=== PATIENT | female | born 2000 | race Caucasian/White ===

== ENCOUNTER 2022-04-12 16:05 | Emergency (ER) | payer OTHER, SELFPAY ==
[2022-04-12 16:11] VITALS: BP 101/64; PULSE 88; RESP 20; TEMP 37; O2SAT 100
--- NOTE | 2022-04-12 16:15 | ED.EXTPRO ---
HPI - Extremity Problem General Chief complaint: Extremity Injury, Lower Stated complaint: Bottom of Left foot pain Time Seen by Provider: 04/12/22 16:15 Source: patient Mode of arrival: ambulatory Limitations: no limitations History of Present Illness HPI Narrative: Ms. Wharton is a 22-year-old female patient presenting to the clinic today with complaints of left plantar foot pain. She reports she got out of bed 2 days ago and developed pain to the bottom of her foot. She denies any known injury. She denies any pain to her heel. States is most painful when walking but she is able to walk on her tippy toes without much Related Data Home Medications Medication Instructions Recorded Confirmed aripiprazole 10 mg tablet 10 mg PO DAILY 04/12/22 04/12/22 buspirone 15 mg tablet 15 mg PO DAILY 04/12/22 04/12/22 insulin lispro 100 unit/mL 60 sliding scale dose continuous 04/12/22 04/12/22 subcutaneous solution (Humalog subcutaneous infusion DAILY U-100 Insulin) insulin pump cart,cont inf,BT 04/12/22 04/12/22 (Omnipod Dash Pods (Gen 4) subcutaneous cartridge) medroxyprogesterone 150 mg/mL 150 mg IM [id number] 04/12/22 04/12/22 intramuscular syringe omeprazole 20 mg capsule,delayed 20 mg PO DAILY 04/12/22 04/12/22 release Allergies Allergy/AdvReac Type Severity Reaction Status Date / Time amoxicillin Allergy Intermediate Hives / Verified 04/12/22 16:25 Red Face Review of Systems Review of Systems: Pertinent positives per HPI. Patient denies any fever, chills, rash, headache, visual changes, dizziness, cough, runny nose, sore throat, shortness of breath, chest pain, palpitations, nausea, vomiting, diarrhea, constipation, abdominal pain, or any urinary issues. PMFSH Comments At the time of my signature, I reviewed and agree with the nursing past medical, surgical, social, and family history. There is no relevant family history pertinent to the patient complaint. Exam Narrative: General: Well-developed, well nourished, in no apparent distress Head: Normocephalic, atraumatic. Cardio: Regular rate and rhythm, s1 and s2 normal, no murmur appreciated. Resp: Clear to auscultation bilaterally, no rhonchi, rales, wheezing or rubs. Musculoskeletal: No deformity,tender to palpation over the plantar fascia, grossly normal range of motion, mild discomfort with dorsal flexion of the left foot, muscle strength strong and equal, peripheral pulse strong, no edema, no cyanosis, normal gait and station Course Course Emergency Course: Portions of this record may have been created with voice recognition software. Level of Care: Express Care Visit Vital Signs Vital signs: Vital Signs Temperature 37.0 C 04/12/22 16:11 Pulse Rate 88 04/12/22 16:11 Respiratory Rate 20 04/12/22 16:11 Blood Pressure 101/64 04/12/22 16:11 Pulse Oximetry 100 04/12/22 16:11 Oxygen Delivery Room Air 04/12/22 16:11 Temperature 37.0 C 04/12/22 16:11 Pulse Rate 88 04/12/22 16:11 Respiratory Rate 20 04/12/22 16:11 Blood Pressure 101/64 04/12/22 16:11 Pulse Oximetry 100 04/12/22 16:11 Oxygen Delivery Room Air 04/12/22 16:11 Vital signs reviewed MDM - Extremity (Nontraumatic) MDM Narrative Medical decision making narrative: At the time of visit patient is resting comfortably on the exam table. I suspect that the patient has plantars fasciitis. Supportive measures were discussed with the patient she voiced understanding of discharge instructions and agrees to the treatment plan. Differential Diagnosis Differential diagnosis: Likely other (Foot sprain, planter fasciitis, rupture of the plantar fascia) Discharge Plan Discharge Clinical Impression: Plantar fasciitis of left foot Patient Disposition: Home, Self-Care Condition: Stable Instructions: Antibiotic Form, Plantar Fasciitis (ED), Plantar Fasciitis Exercises (ED) Additional Instructions: Rest, ice, and elevate Take ibuprofe
== END 2022-04-12 16:40 | disposition home or self-care (01) ==
PROVIDERS: Emergency Provider Nurse Practitioner Family; PCP Internal Medicine
DX: M72.2 Plantar fascial fibromatosis (principal); Z79.4 Long term (current) use of insulin
CPT/HCPCS: 99203; G0463

== ENCOUNTER 2022-07-13 15:04 | Emergency (ER) | payer OTHER, SELFPAY ==
[2022-07-13 15:08] VITALS: BP 109/71; PULSE 102; RESP 16; TEMP 36.9; O2SAT 99
--- NOTE | 2022-07-13 15:18 | ED.URI ---
HPI - URI/Sore Throat General Chief Complaint: Upper Respiratory Infection Stated Complaint: cough throat congestion weak Time Seen by Provider: 07/13/22 15:18 History of Present Illness HPI Narrative: Patient presents with nasal congestion cough sore throat fever and body aches. Patient states she was exposed to influenza a and her symptoms have been going on for 3 days. No shortness of breath no chest pain she is not taking anything [id number] for symptoms. Related Data Home Medications Medication Instructions Recorded Confirmed aripiprazole 10 mg tablet 10 mg PO DAILY 04/12/22 04/12/22 buspirone 15 mg tablet 15 mg PO DAILY 04/12/22 04/12/22 insulin lispro 100 unit/mL 60 sliding scale dose continuous 04/12/22 04/12/22 subcutaneous solution (Humalog subcutaneous infusion DAILY U-100 Insulin) insulin pump cart,cont inf,BT 04/12/22 04/12/22 (Omnipod Dash Pods (Gen 4) subcutaneous cartridge) medroxyprogesterone 150 mg/mL 150 mg IM [id number] 04/12/22 04/12/22 intramuscular syringe omeprazole 20 mg capsule,delayed 20 mg PO DAILY 04/12/22 04/12/22 release Allergies Allergy/AdvReac Type Severity Reaction Status Date / Time amoxicillin Allergy Intermediate Hives / Verified 07/13/22 15:19 Red Face Penicillins Allergy Unknown Verified 07/13/22 15:19 Review of Systems Review of Systems: CONSTITUTIONAL: Denies chills, or sweats. Reports fever and generalized body aches EYES: Denies visual changes, redness, or discharge. ENT: Denies otalgia. Reports nasal congestion runny nose and sore throat CARDIOVASCULAR: Denies chest pain, palpitations, or edema. RESPIRATORY: Denies dyspnea. Reports occasional cough GASTROINTESTINAL: Denies abdominal pain, nausea, vomiting, or diarrhea. GENITOURINARY: Denies dysuria or hematuria. SKIN: Denies rash or itching. MUSCULOSKELETAL: Denies back pain, joint pain, or myalgia. Reports generalized body aches NEUROLOGIC: Denies headache, numbness, or weakness. PSYCHIATRIC: Denies anxiety or depression. PMFSH Comments At time of signature, agree with nursing past medical, surgical, social and family history. There is no relevant family history pertinent to the presenting complaint Exam Narrative: The patient is a well-developed, well-nourished in no acute distress. SKIN: Skin is warm and dry without erythema, swelling or exudate. There is good turgor. No tenting. HEAD: Atraumatic. Normocephalic. No temporal or scalp tenderness. EYES: Moist and bright. Sclera and conjunctivae normal. No discharge. PERRLA. Extraocular motions intact. Gross visual acuity intact. EARS: Pinna is normal shape and contour. Clear external auditory canals. TM pearly vaca with good cone of light, no erythema or suppuration. Bilateral cerumen noted no gross hearing deficit. NOSE: pink, moist mucosa with good air movement. Clear rhinorrhea without nasal flaring. Septum midline. Mouth: moist mucous membranes. THROAT; mild erythema noted to posterior oropharynx with moderate postnasal drainage. Without exudate or ulceration.. Uvula midline. Normal movement of soft palate. NECK: Supple and nontender with full range of motion without discomfort. No meningeal signs. LUNGS: Equal and bilateral breath sounds without wheezes, rales or rhonchi. CHEST: The chest wall is without retractions or use of accessory muscles. HEART: Has a regular rate and rhythm without murmur, gallops, click or rub. ABDOMEN: Soft, nontender with positive active bowel sounds. No rebound tenderness. EXTREMITIES: Without cyanosis, clubbing or edema. Equal 2+ distal pulses and 2 second capillary refill noted. NEUROLOGIC: alert, active, . The patient moves all extremities with normal muscle strength. Normal muscle tone is noted. Normal coordination is noted. NO focal neurological findings noted. Course Course Level of Care: Express Care Visit Vital Signs Vital signs: Vital Signs Temperature 36.9 C 07/13/22 15:08 Pulse Rate 102 H
== END 2022-07-13 15:30 | disposition home or self-care (01) ==
PROVIDERS: Emergency Provider Nurse Practitioner Family; PCP Internal Medicine
DX: B34.9 Viral infection, unspecified (principal); J02.9 Acute pharyngitis, unspecified; R52 Pain, unspecified
CPT/HCPCS: 99211; G0463

== ENCOUNTER 2022-07-21 15:23 | Emergency (ER) | payer OTHER, SELFPAY ==
[2022-07-21 15:26] VITALS: BP 122/55; PULSE 130; RESP 16; TEMP 37.7; O2SAT 99
--- NOTE | 2022-07-21 16:17 | ED.URI ---
HPI - URI/Sore Throat General Chief Complaint: Upper Respiratory Infection Stated Complaint: Sore Throat/Ear Pain Time Seen by Provider: 07/21/22 16:05 Source: patient, RN notes reviewed and old records reviewed Mode of arrival: ambulatory Limitations: no limitations History of Present Illness HPI Narrative: 22 year old female who presents to [facility] care with complaints of having flu last week, continues to have ear pain, sore throat and cough, states not feeling much better. Patient reports that she has been taking Mucinex, Ibuprofen for her symptoms. MD elicited complaint: cough, sore throat and other (ear pain) Pertinent past history: other (recent diagnosis of flu,Type I diabetic) Onset (ago): week(s) (1) Able to tolerate fluids by mouth: Yes Treatments prior to arrival: ibuprofen and other (mucinex) Related Data Home Medications Medication Instructions Recorded Confirmed aripiprazole 10 mg tablet 10 mg PO DAILY 04/12/22 07/13/22 buspirone 15 mg tablet 15 mg PO DAILY 04/12/22 07/13/22 insulin lispro 100 unit/mL 60 sliding scale dose continuous 04/12/22 07/13/22 subcutaneous solution (Humalog subcutaneous infusion DAILY U-100 Insulin) insulin pump cart,cont inf,BT 04/12/22 04/12/22 (Omnipod Dash Pods (Gen 4) subcutaneous cartridge) medroxyprogesterone 150 mg/mL 150 mg IM [id number] 04/12/22 07/13/22 intramuscular syringe oxybutynin chloride 10 mg mg PO 07/21/22 tablet,extended release 24 hr Allergies Allergy/AdvReac Type Severity Reaction Status Date / Time amoxicillin Allergy Intermediate Hives / Verified 07/13/22 15:19 Red Face Penicillins Allergy Unknown Verified 07/13/22 15:19 Review of Systems Review of Systems: CONSTITUTIONAL:Reports malaise, chills, sweats, or fever. EYES: Denies visual changes, redness, or discharge. ENT: Reports rhinorrhea, congestion, sinus pain, otalgia and sore throat. CARDIOVASCULAR: Denies chest pain, palpitations, or edema. RESPIRATORY: Reports cough.? Denies dyspnea. GASTROINTESTINAL: Denies abdominal pain, nausea, vomiting, diarrhea SKIN: Denies rash or itching. MUSCULOSKELETAL Reports myalgia. NEUROLOGIC: Denies headache. All systems reviewed & are unremarkable except as noted in HPI and below PMFSH Past Medical History Medical History (Updated 07/30/22 @ 21:43 by Lor Woody NP) Anxiety and depression Diabetes type I Comments At time of signature, agree with nursing past medical, surgical, social and family history. There is no relevant family history pertinent to the presenting complaint Exam Narrative: GENERAL: Well-appearing, well-nourished, and in no acute distress. HEAD: Normocephalic EYES: PERRLA, conjunctivae clear ENT: Nares clear, turbinates edematous and erythematous, clear discharge. Mucous membranes moist. TM pearly jeffrey with dull light reflex bilaterally; no tragal tenderness. Oropharynx erythematous without lesions. Tonsils not enlarged and without exudate, no drooling, no hoarseness, no trismus, uvula midline. NECK: Supple. No lymphadenopathy CHEST: Clear to auscultation, breath sounds equal. No wheezing, rhonchi, rales, or stridor. No respiratory distress, speaks in full sentences.cough SAO2 99% on room air HEART: Regular rate and rhythm. No murmur heard. SKIN: Warm, dry, no rash. NEURO: Alert and oriented x3. PSYCH: Normal mood and affect Course Course Emergency Course: Patient is aware of diagnosis, understands and agrees to treatment plan.? Anticipatory guidance given.? Patient agrees to follow-up as directed and is aware of reasons to seek care at the emergency department. Portions of this record may have been created with voice recognition software Level of Care: Express Care Visit Vital Signs Vital signs: Vital Signs Temperature 37.7 C H 07/21/22 15:26 Pulse Rate 130 H 07/21/22 15:26 Respiratory Rate 16 07/21/22 15:26 Blood Pressure 122/55 L 07/21/22 15:26 Pulse Oxi
== END 2022-07-21 16:27 | disposition home or self-care (01) ==
PROVIDERS: Emergency Provider Registered Nurse; PCP Physician Assistant
DX: J11.1 Influenza due to unidentified influenza virus with other respiratory manifestations (principal); R05.9 Cough, unspecified
CPT/HCPCS: 99213; G0463

== ENCOUNTER 2024-12-11 19:35 | Emergency (ER) | payer OTHER, SELFPAY ==
--- OUTSIDE RECORDS SUMMARY | 2024-12-11 19:38 | XMS_ITS | Encounter Summary ---
Author Organization [facility] Address [address] [place] [address] Care Team Providers Care Maple Products Maker Name Role Phone Heather Mathias MD Primary Care Provider + [phone] Heather Mathias MD Primary Care Provider + [phone] Encounter Details Date Type Department Care Team (Late st Contact Info) Description 01/06/2019 Telephone [facility] Pediatrics - Diabetes [id number] [place] [address] Km Perkins, CERTIFIED REGISTERED LOCKSMITH-ASSISTANT DIRECTOR OF FINANCIAL AID [address] [place] [id number] Social History Tobacco Use Types Packs/Day Years Used Date Smoking Tobacco: Never Smokeless Tobacco: Never Comments:Passive smoke expos ure Alcohol Use Standard Drinks/Week Comments Not Asked 0 (1 standard drink = 0.6 oz pur e alcohol) Comments No Sex and Gender Information Value Date Recorded Sex Assigned at Not on file Legal Sex Female 11:39 AM LEGAL TRANSCRIBER Gender Identity Not on file Sexual Orientation Not on file documented as of this encounter Miscellaneous Notes * Telephone Encounter - Nicole Ralph, - 01/07/2019 10:11 AM CDT Mom called back through exchange as recommended. has not vomited anymore but still feels nauseated. Her glucose is 418 and ketones are still large. Using her ISF 19 and target of 150 (which mom reports is their current target) recommended to give another shot of 14 units. is not reading to eat yet. Recommended to check blood sugar and ketones again in 2 hours. If glucose trending down but still over 250 and ketones are large or moderate, give a correction through the pump. If she wants to eat at that time, give the correction dose first, let her eat, and dose for her carbs after eating. Check blood sugar and ketones again after another 2 hours. If she still has moderate or large ketones, call back through the exchange. * Telephone Encounter - Nicole Ralph DO - 01/07/2019 8:12 AM CDT Mom called through exchange due to ketones and high blood sugars. Mom reports that yesterday after she spoke to RN, she tried calling back again at 4 PM and left a message. She tried calling again at7 PM and left a message. She then found a sheet from pump class giving instructions on giving a shot, which she did. Sugar was in the 300's before bed, ketones still large. Last site change was in the afternoon. This morning, she woke up 2 hours ago vomiting and glucose was 490. Now she had large ketones and still vomiting. RECOMMENDATIONS: -change pump site again -recheck sugar: recommended to give 27 units by shot and recheck blood sugar and ketones in 2 hours. -call after recheck and will discuss plan -go to ER if her breathing becomes labored or if she is vomiting recurrently. * Telephone Encounter - Shalonda Schaefer RN - 01/06/2019 1:21 PM CDT Diabetes Sick Call Patient: Emma Guidry Date: 01/06/2019 Current Blood Glucose: 1:00 pm HI Current Ketone result: moderate Last insulin given: Humalog: Dose 38 with food and correction Time 1:00 pm Symptoms: thirsty, irritable, headache Recent Illness: none Plan: Push sugar free fluid. Recheck blood glucose and urine ketones in two hours. Change pump site now. documented in this encounter Plan of Treatment Not on file documented as of this encounter Visit Diagnoses Not on filedocumented in this encounter Additional Health Concerns Infection Onset Date Last Indicated Resolved Time COVID-19 Under Investigation 07/21/2020 07/21/2020 07/21/2020 12:45 AM LEGAL TRANSCRIBER documented as of this encounter Care Teams Maple Products Maker Relationship Specialty Start Date End Date Heather Mathias MD [address] [place] [address] PCP - General 11/27/10 03/18/21 Heather Mathias MD [address] [place] [address] PCP - General 03/20/21 documented as of this encounter
--- OUTSIDE RECORDS SUMMARY | 2024-12-11 19:38 | XMS_ITS | Encounter Summary ---
Author Organization [facility] [employer] Address [address] [place] [address] Care Team Providers Care Electrician Elevator Maintenance Name Role Phone Heather Mathias MD Primary Care Provider + [phone] Heather Mathias MD Primary Care Provider + [phone] Reason for Visit * Reason Onset Date Comments MEDICATION REFILL 03/22/2020 Encounter Details Date Type Department Care Team (Late st Contact Info) Description 03/22/2020 Refill [facility] Pediatrics - Endocrinology [address] [place] [id number] Chikis Briggs MD MEDICATION REFILL Social History Tobacco Use Types Packs/Day Years Used Date Smoking Tobacco: Never Smokeless Tobacco: Never Comments:Passive smoke expos ure Alcohol Use Standard Drinks/Week Comments Never 0 (1 standard drink = 0.6 oz pur e alcohol) AUDIT-C Answer Date Recorded Frequency of Alcohol Consumption Never 02/08/2020 Average Number of Drinks Not on file 020 Frequency of Binge Drinking Not on file 09/2019 Comments No Sex and Gender Information Value Date Recorded Sex Assigned at Not on file Legal Sex Female 11:39 AM WILD ANIMAL CARETAKER Gender Identity Not on file Sexual Orientation Not on file COVID-19 Exposure Response Date Recorded In the last month, have you been in contact with someone who was confirmed or suspected to have Coronavirus / COVID-19? No / Unsure 02/27/2020 9:20 AM CDT documented as of this encounter Plan of Treatment Not on file documented as of this encounter Visit Diagnoses Not on filedocumented in this encounter Additional Health Concerns Infection Onset Date Last Indicated Resolved Time COVID-19 Under Investigation 07/21/2020 07/21/2020 07/21/2020 12:45 AM WILD ANIMAL CARETAKER documented as of this encounter Care Teams Electrician Elevator Maintenance Relationship Specialty Start Date End Date Heather Mathias MD [address] [place] [address] PCP - General 11/27/10 03/18/21 Heather Mathias MD [address] [place] [address] PCP - General 03/20/21 documented as of this encounter
--- OUTSIDE RECORDS SUMMARY | 2024-12-11 19:38 | XMS_ITS | Encounter Summary ---
Author Organization [facility] Address [address] [place] [address] Care Team Providers Care Esl Tutor Name Role Phone Heather Mathias MD Primary Care Provider + [phone] Heather Mathias MD Primary Care Provider + [phone] Encounter Details Date Type Department Care Team (Late st Contact Info) Description 07/29/2020 Telephone [facility] Pediatrics - Endocrinology [address] [place] [address] Km Perkins, TIP STRETCHER-EDUCATIONAL RECRUITER [address] [place] [id number] Social History Tobacco Use Types Packs/Day Years Used Date Smoking Tobacco: Never Smokeless Tobacco: Never Comments:Passive smoke expos ure Alcohol Use Standard Drinks/Week Comments Yes 0 (1 standard drink = 0.6 oz pur e alcohol) about a week ago AUDIT-C Answer Date Recorded Q1: How often do you have a drink containing alc ohol? 2-4 times a month 07/23/2020 Average Number of Drinks Not on file 020 Frequency of Binge Drinking Not on file 07/09 Comments No Sex and Gender Information Value Date Recorded Sex Assigned at Not on file Legal Sex Female 11:39 AM TELEVISION PRODUCTION CLERK Gender Identity Not on file Sexual Orientation Not on file documented as of this encounter Functional Status * Is person deaf or have serious hearing difficulty? Answer Date of Assessment Author No 07/23/2020 5:27 PM TELEVISION PRODUCTION CLERK Alfredo Feliz RN * Is person blind or have serious difficulty seeing? Answer Date of Assessment Author No 07/23/2020 5:27 PM TELEVISION PRODUCTION CLERK Alfredo Feliz RN * Does person have serious difficulty walking/climbing stairs? Answer Date of Assessment Author No 07/23/2020 5:27 PM TELEVISION PRODUCTION CLERK Alfredo Feliz RN * Does person have difficulty dressing/bathing? Answer Date of Assessment Author No 07/23/2020 5:27 PM TELEVISION PRODUCTION CLERK Alfredo Feliz RN * Does person have difficulty doing errands alone? Answer Date of Assessment Author No 07/23/2020 5:27 PM TELEVISION PRODUCTION CLERK Alfredo Feliz RN documented as of this encounter Mental Status * Does person have difficulty concentrating/remembering/making decisions? Answer Entry Date Author No 07/23/2020 5:27 PM TELEVISION PRODUCTION CLERK Alfredo Feliz RN documented in this encounter Miscellaneous Notes * Telephone Encounter - Shalonda Schaefer RN - 07/29/2020 2:21 PM CST I reached out to and her mom to review blood sugars post DKA admission. [phone]. No answer, LMOM. VISION PRODUCTION CLERK documented in this encounter Plan of Treatment Not on file documented as of this encounter Visit Diagnoses Not on filedocumented in this encounter Care Teams Esl Tutor Relationship Specialty Start Date End Date Heather Mathias MD [address] [place] [address] PCP - General 11/27/10 03/18/21 Heather Mathias MD [address] [place] [address] PCP - General 03/20/21 documented as of this encounter
--- OUTSIDE RECORDS SUMMARY | 2024-12-11 19:38 | XMS_ITS | Data Portability ---
Author Organization [facility] Address [address] [place] [address] Care Team Providers Care Career Guidance Technician Name Role Phone ALEXANDER WHITFIELD Primary Care Provider Assessment No assessment recorded. Plan of Treatment Reminders Order Date Submit Date Provider Last Modified By Organization Details Last Modified Time Details Appointments ANY 15 2024 10:30A Ramesh Raymond MD Not available Not available Not available ANY 2024 01:45P EVARISTO MERCADO Not available Not available Not available Lab None record ed. Referral cardio logist referr al 2024 025 david Raymond MD, [address], [place], [address], 11/21/2024 15:03:06 dermat ologis t referr al 2024 025 vesta Rojas MD (Dermatology) , [address] [facility] [address], [place], [address], 12/05/2024 08:16:42 urolog ist referr al 2024 025 vesta Sr MD, [address] [facility] [address], [address], [address], 12/05/2024 08:16:41 neurol ogist referr al 2023 024 Bernard Carrillo MD, [address] [facility], [facility], [place], [address], 08/31/2024 17:48:03 Procedures None record ed. Surgeries None record ed. Imaging electr ocardi ogram 2024 025 [email or web address] In-Office Order, Internal Use Only DO Not Attach Compendium DO Not Attach Compendium, Do Not Delete/merge, [id number] 11/30/2024 14:48:52 US, echoca rdiogr am, transt horaci c, comple te, w/ color flow 2024 025 [email or web address] [facility] ([facility]) Scheduling, [address] [place], [address], 12/11/2024 13:58:42 Medication Orders hydroc ortiso ne 2.5 % topica l cream 2024 025 [id number], [address], [place], [place], [id number], 11/20/2024 14:56:47 omepra zole 20 mg capsul e,lalit yed releas e 2024 025 [id number], [address], [place], [place], [id number], 11/20/2024 14:44:08 medrox yproge steron e 150 mg/mL intram uscula r suspen leann 2024 025 [email or web address] Not available 11/01/2024 13:05:26 Difluc an 150 mg tablet 2024 025 [facility] #[id number], [address], [place], [place], [id number], 11/01/2024 12:23:18 Depo-P rovera 150 mg/mL intram uscula r suspen leann 2023 024 jan [facility] #[id number], [address], [place], [place], [id number], 08/08/2024 15:33:40 Patient TargetsNo targets recorded. Patient Instructions Encounter Date Encounter Id Patient Instructions Last Modified By Organization Details Last Modified Time 08/08/2024 [id number] epilepsy: care instructions [email or web address] Not available 08/08/2024 15:33:41 08/22/2024 [id number] f/u in 3 month nsuthan Not available 08/22/2024 14:35:19 11/01/2024 [id number] lightheadedness or faintness: care instructions [email or web address] Not available 11/01/2024 12:25:05 Quitting Tobacco : Care Instructions [email or web address] Not available 11/01/2024 12:25:05 learning about healthy weight [email or web address] Not available 11/01/2024 12:25:05 11/20/2024 [id number] A healthy lifestyle: care instructions Not available 11/20/2024 14:51:16 substance use disorder: care instructions [email or web address] Not available 11/20/2024 14:50:28 gastroesophageal reflux disease (GERD): care instructions Not available 11/20/2024 14:43:56 Quitting Tobacco : Care Instructions Not available 11/20/2024 14:50:28 Plan of care has been discussed with patient including expected therapeutic benefits and potential side effects of prescribed medication and treatments. Patient verbalizes understanding and is in agreement with the plan of care. Patient was instructed to keep all scheduled appointments and contact the clinic for any additional problems. Health Maintenance: - CRC screening (45-75):Due at 45 years. - Osteoporosis screening: Due at 65. - Lipid screening (>45 unless additional risk factors): 07/29/21 - HIV : negative 2021 - HepC: declined -Eye exam: 2024 -Dental Exam: appointment scheduled - Immunizations: - Influenza: Due. Declined - Prevnar 20: Due at 65. - Tdap/Td ([id number]): 01/17/22 - Zoster (>60):Due at 60. - COVID-19: Declined -Labs ordered this visit: Females: Pap smear: negative 2022 Mammogram: n/a DEXA: n/a Not available 11/20/2024 14:41:03 11/30/2024 [id number] A healthy lifestyle: care instructions [email or web address] Not available 11/30/2024 14:48:52 palpitations: ca re instructions [email or web address] Not available 11/30/2024 14:48:52 Quitting Tobacco : Care Instructions [email or web address] Not available 11/30/2024 14:48:52 Reason for Referral Neurologist Referral for Sei zure disorder Referring Physician: Isabel Cooney, Senior Cost Estimator, Encounter Date: 08/08/2024 Urologist Referral for Overa ctive urinary bladder Referring Physician: Melody Saucedo [facility] [place], Encounter Date: 11/20/2024 Submersible Pilot Referral for Pa lpitations Referring Physician: Melody Saucedo [facility] [place], Encounter Date: 11/20/2024 Poultry Scalder Referral for P ruritic rash Referring Physician: Melody Saucedo [facility] [place], Encounter Date: 11/20/2024 Results Created Date Observation Date Name Description Value Unit Range Abnormal Flag Note LastModifiedBy Organization Detail LastModifiedTime 08/13/1908/13/2024 Gluco se [Mass /volu me] in Blood glucose [mass/volume ] in blood 223 mg/dL low: 70mg/d Lhigh: 99mg/d L high GLUCO SE,BE DSIDE POCT 223 (H) 70 - 99 mg/dL 08/13 5:43 AM SCHOOL ADMINISTRATOR [facility] Not Available Not Available 10/31/2024 14:35:00 08/13/1908/13/2024 Gluco se [Mass /volu me] in Blood interpretati on and review of laboratory results Abnorm al Not Available Not Available 14:35:00 08/13/1908/13/2024 CBC W Auto Diffe renti al panel - Blood leukocytes [#/volume] in blood by automated count 10.08 text: 4.00 - 12.00 10(3)/ mcL WBC 10.08 4.00 - 12.00 10(3) /mcL 08/13 4:18 AM [facility] Not Available Not Available 10/31/2024 14:35:00 08/13/1908/13/2024 CBC W Auto Diffe renti al panel - Blood erythrocytes [#/volume] in blood by automated count 5.51 text: 3.80 - 5.30 10(6)/ mcL high RBC 5.51 (H) 3.80 - 5.30 10(6) /mcL 08/13 4:18 AM [facility] Not Available Not Available 10/31/2024 14:35:00 08/13/1908/13/2024 CBC W Auto Diffe renti al panel - Blood hemoglobin [mass/volume ] in blood 15.6 g/dL low: 12g/dL high: 15.8g/ dL HEMOG LOBIN (HGB) 15.6 12.0 - 15.8 g/dL 08/13 4:18 AM [facility] Not Available Not Available 10/31/2024 14:35:00 08/13/1908/13/2024 CBC W Auto Diffe renti al panel - Blood hematocrit [volume fraction] of blood by automated count 44.9 % low: 36%hig h: 47% HEMAT OCRIT (HCT) 44.9 36.0 - 47.0 % 08/13 4:18 AM [facility] Not Available Not Available 10/31/2024 14:35:00 08/13/1908/13/2024 CBC W Auto Diffe renti al panel - Blood MCV [entitic volume] by automated count 81.5 fL low: 82fLhi gh: 96fL low MCV 81.5 (L) 82.0 - 96.0 fL 08/13 4:18 AM [facility] Not Available Not Available 10/31/2024 14:35:00 08/13/1908/13/2024 CBC W Auto Diffe renti al panel - Blood MCH [entitic mass] by automated count 28.3 pg low: 26pghi gh: 34pg MCH 28.3 26.0 - 34.0 pg 08/13 4:18 AM [facility] Not Available Not Available 10/31/2024 14:35:00 08/13/19 25 08/13/2024 CBC W Auto Diffe renti al panel - Blood MCHC [mass/volume ] by automated count 34.7 g/dL low: 31g/dL high: 36g/dL MCHC 34.7 31.0 - 36.0 g/dL 08/13 4:18 AM [facility] Not Available Not Available 10/31/2024 14:35:00 08/13/19 25 08/13/2024 CBC W Auto Diffe renti al panel - Blood platelets [#/volume] in blood 288 text: 140 - 440 10(3)/ mcL PLATE LET COUNT 288 140 - 440 10(3) /mcL 08/13 4:18 AM [facility] Not Available Not Available 10/31/2024 14:35:00 08/13/1908/13/2024 CBC W Auto Diffe renti al panel - Blood erythrocyte distribution width [ratio] by automated count 12.4 % low: 11.8%h igh: 15.5% RDW 12.4 11.8 - 15.5 % 08/13 4:18 AM [facility] [place] Not Available Not Available 10/31/2024 14:35:00 08/13/19 25 08/13/2024 CBC W Auto Diffe renti al panel - Blood platelet mean volume [entitic volume] in blood by automated count 10.5 fL low: 9.7fLh igh: 12.4fL MPV 10.5 9.7 - 12.4 fL 08/13 4:18 AM [facility] Not Available Not Available 10/31/2024 14:35:00 0108/13/2024 CBC W Auto Diffe renti al panel - Blood neutrophils/ 100 leukocytes in blood by automated count 56.5 % low: 47%hig h: 73% NEUTR OPHIL S 56.5 47.0 - 73.0 % 08/13 4:18 AM S[facility]OL ADMINISTRATOR [facility] Not Available Not Available 10/31/2024 14:35:00 08/13/1908/13/2024 CBC W Auto Diffe renti al panel - Blood lymphocytes/ 100 leukocytes in blood by automated count 35.3 % low: 18%hig h: 42% LYMPH OCYTE S 35.3 18.0 - 42.0 % 08/13 4:18 AM S[facility]OL ADMINISTRATOR [facility] Not Available Not Available 10/31/2024 14:35:00 08/13/1908/13/2024 CBC W Auto Diffe renti al panel - Blood monocytes/10 0 leukocytes in blood by automated count 6.7 % low: 4%high : 12% MONOC YTES 6.7 4.0 - 12.0 % 08/13 4:18 AM [facility]OL ADMINISTRATOR [facility] Not Available Not Available 10/31/2024 14:35:00 08/13/1908/13/2024 CBC W Auto Diffe renti al panel - Blood eosinophils/ 100 leukocytes in blood by automated count 1 % low: 0%high : 5% EOSIN OPHIL S 1.0 0.0 - 5.0 % 08/13 4:18 AM [facility]OL ADMINISTRATOR [facility] Not Available Not Available 10/31/2024 14:35:00 08/13/1908/13/2024 CBC W Auto Diffe renti al panel - Blood basophils/10 0 leukocytes in blood by automated count 0.5 % low: 0%high : 1% BASOP HILS 0.5 0.0 - 1.0 % 08/13 4:18 AM [facility]OL ADMINISTRATOR [facility] Not Available Not Available 10/31/2024 14:35:00 08/13/1908/13/2024 CBC W Auto Diffe renti al panel - Blood neutrophils [#/volume] in blood by automated count 5.69 text: 1.60 - 7.70 10(3)/ mcL ABSOL [place] NEUTR OPHIL S 5.69 1.60 - 7.70 10(3) /mcL 08/13 4:18 AM S[facility]OL ADMINISTRATOR [facility] Not Available Not Available 10/31/2024 14:35:00 08/13/19 25 08/13/2024 CBC W Auto Diffe renti al panel - Blood lymphocytes [#/volume] in blood by automated count 3.56 text: 1.30 - 3.20 10(3)/ mcL high ABSOL [place] LYMPH OCYTE S 3.56 (H) 1.30 - 3.20 10(3) /mcL 08/13 4:18 AM SCHOOL ADMINISTRATOR [facility] Not Available Not Available 10/31/2024 14:35:00 08/13/1908/13/2024 CBC W Auto Diffe renti al panel - Blood monocytes [#/volume] in blood by automated count 0.68 text: 0.20 - 1.00 10(3)/ mcL ABSOL [place] MONOC YTES 0.68 0.20 - 1.00 10(3) /mcL 08/13 4:18 AM SCHOOL ADMINISTRATOR [facility] Not Available Not Available 10/31/2024 14:35:00 08/13/1908/13/2024 CBC W Auto Diffe renti al panel - Blood eosinophils [#/volume] in blood by automated count 0.1 text: 0.00 - 0.40 10(3)/ mcL ABSOL [place] EOSIN OPHIL 0.10 0.00 - 0.40 10(3) /mcL 08/13 4:18 AM S[facility]OL ADMINISTRATOR [facility] Not Available Not Available 10/31/2024 14:35:00 08/13/19 25 08/13/2024 CBC W Auto Diffe renti al panel - Blood basophils [#/volume] in blood by automated count 0.05 text: 0.00 - 0.10 10(3)/ mcL ABSOL [place] BASOP HILS 0.05 0.00 - 0.10 10(3) /mcL 08/13 4:18 AM S[facility]OL ADMINISTRATOR [facility] Not Available Not Available 10/31/2024 14:35:00 08/13/1908/13/2024 CBC W Auto Diffe renti al panel - Blood nucleated erythrocytes /100 leukocytes [ratio] in blood 0 NRBC PER 100 WBC 0 08/13 4:18 AM [facility]MINIST[facility] Not Available Not Available 10/31/2024 14:35:00 08/13/1908/13/2024 CBC W Auto Diffe renti al panel - Blood interpretati on and review of laboratory results Abnorm al Not Available Not Available 14:35:00 08/13/1908/13/2024 Gas panel - Venou s blood oxygen gas flow oxygen delivery system 98% O2 STATU S 98% 08/13 4:45 AM [facility]OL ADMINISTRATOR [facility] Not Available Not Available 10/31/2024 14:35:00 08/13/1908/13/2024 Gas panel - Venou s blood pH of venous blood 7.4 low: 7.34hi gh: 7.43 PH VENOU S 7.40 7.34 - 7.43 08/13 4:45 AM SCHOOL ADMINISTRATOR [facility] Not Available Not Available 10/31/2024 14:35:00 08/13/1908/13/2024 Gas panel - Venou s blood carbon dioxide [partial pressure] in venous blood 33 text: 41 - 51 mmHg low PCO2 (VENO US) 33 (L) 41 - 51 mmHg 08/13 4:45 AM S[facility]OL ADMINISTRATOR [facility] Not Available Not Available 10/31/2024 14:35:00 08/13/1908/13/2024 Gas panel - Venou s blood oxygen [partial pressure] in venous blood 57 text: 30 - 50 mmHg high PO2 VENOU S 57 (H) 30 - 50 mmHg 08/13 4:45 AM SCHOOL ADMINISTRATOR [facility] Not Available Not Available 10/31/2024 14:35:00 08/13/1908/13/2024 Gas panel - Venou s blood oxygen saturation in venous blood 87 % low: 60%hig h: 85% high O2 SAT JACK, MEASU RED 87 (H) 60 - 85 % 08/13 4:45 AM SCHOOL ADMINISTRATOR [facility] Not Available Not Available 10/31/2024 14:35:00 08/13/1908/13/2024 Gas panel - Venou s blood bicarbonate [moles/volum e] in blood 20.9 mmol/ L low: 22mmol /Lhigh : 26mmol /L low BICAR BONAT E 20.9 (L) 22.0 - 26.0 mmol/ L 08/13 4:45 AM SCHOOL ADMINISTRATOR [facility] Not Available Not Available 10/31/2024 14:35:00 08/13/1908/13/2024 Gas panel - Venou s blood base venous -2.5 mmol/ L low: -2mmol /Lhigh : 3mmol/ L low BASE VENOU S -2.5 (L) -2.0 - 3.0 mmol/ L 08/13 4:45 AM SCHOOL ADMINISTRATOR [facility] Not Available Not Available 10/31/2024 14:35:00 08/13/1908/13/2024 Gas panel - Venou s blood carboxyhemog lobin/hemogl obin.total in blood 1.8 % low: 0%high : 5% CARBO XYHEM OGLOB IN 1.8 0.0 - 5.0 % 08/13 4:45 AM SCHOOL ADMINISTRATOR [facility] Not Available Not Available 10/31/2024 14:35:00 08/13/1908/13/2024 Gas panel - Venou s blood methemoglobi n/hemoglobin .total in blood 0.5 % low: 0%high : 1.5% METHE MOGLO BIN 0.5 0.0 - 1.5 % 08/13 4:45 AM SCHOOL ADMINISTRATOR [facility] Not Available Not Available 10/31/2024 14:35:00 08/13/19 25 08/13/2024 Gas panel - Venou s blood Unknown Analyte Interp retati on - The usual approa ch to interp reting a VBG consis ts of using the venous measur ements to estima te the corres yanidin g arteri al values , then using these estima jonah values for clinic al decisi on-david ing exactl y as if an ABG had been perfor med. The differ ence betwee n the venous measur ements and the arteri al measur ements depend s upon the site of venous sampli ng and varies among labora tories . Correl ation with arteri al blood gases - Althou gh arteri al blood gas analys is is more accura te than venous analys is for the assess ment of oxygen ation, measur ement of PCO2, pH, and HCO3 are simila r with some minor adjust ments: The centra l venous pH is usuall y 0.03 to 0.05 pH units lower than the arteri al pH and the PCO2 is usuall y 4 to 5 mmHg higher , with little or no increa se in HCO3. Mixed venous blood (ie, SvO2 drawn from a pulmon dl artery cathet er) gives result s simila r to centra l venous blood (ie, ScvO2 drawn from a centra l venous cathet er). The periph eral venous pH is approx imatel y 0.02 to 0.04 pH units lower than the arteri al pH, the venous serum HCO3 concen tratio n is approx imatel y 1 to 2 meq/L higher , and the venous PCO2 is approx imatel y 3 to 8 mmHg higher . There are no venous to arteri al conver sions for ScvO2, SvO2, or periph eral venous oxyhem oglobi n satura tion (PvO2) . Import antly, suffic ient variab ility betwee n arteri al and venous blood gas values may exist such that period ic correl ation betwee n arteri al and venous blood gas values is always khanh t. Inter preta tion - The usual appro ach to inter preti ng a VBG consi sts of using the venou s measu remen ts to estim ate the corre spond ing arter ial value s, then using these estim ated value s for clini mone decis ion-m aking exact ly as if an ABG had been perfo rmed. The diffe rence betwe en the venou s measu remen ts and the arter ial measu remen ts depen ds upon the site of venou s sampl ing and varie s among labor atori es. Corre latio n with arter ial blood gases - Altho ugh arter ial blood gas destinee sis is more accur ate than venou s destinee sis for the asses sment of oxyge natio n, measu remen t of PCO2, pH, and HCO3 are simil ar with some minor adjus tment s: The centr al venou s pH is usual ly 0.03 to 0.05 pH units lower than the arter ial pH and the PCO2 is usual ly 4 to 5 mmHg highe r, with littl e or no incre ase in HCO3. Mixed venou s blood (ie, SvO2 drawn from a pulmo nary arter y sarita ter) gives resul ts simil ar to centr al venou s blood (ie, ScvO2 drawn from a centr al venou s sarita ter). The perip heral venou s pH is appro ximat sandra 0.02 to 0.04 pH units lower than the arter ial pH, the venou s serum HCO3 mimi ntrat ion is appro ximat sandra 1 to 2 meq/L highe r, and the venou s PCO2 is appro ximat sandra 3 to 8 mmHg highe r. There are no venou s to arter ial conve rsion s for ScvO2 , SvO2, or perip heral venou s oxyhe moglo bin satur ation (PvO2 ). Impor tantl y, suffi cient varia bilit y betwe en arter ial and venou s blood gas value s may exist such that perio dic corre latio n betwe en arter ial and venou s blood gas value s is alway s prude nt. Not Available Not Available 10/31/2024 14:35:00 08/13/19 25 08/13/2024 Gas panel - Venou s blood interpretati on and review of laboratory results Abnorm al Not Available Not Available 14:35:00 08/13/19 25 08/13/2024 Compr ehens kaylynn metab olic 1999 panel - Serum or Plasm a sodium [moles/volum e] in serum or plasma 139 mmol/ L low: 136mmo l/Lhig h: 145mmo l/L SODIU M 139 136 - 145 mmol/ L 08/13 4:37 AM SCHOOL ADMINISTRATOR [facility] Not Available Not Available 10/31/2024 14:34:59 08/13/19 25 08/13/2024 Compr ehens kaylynn metab olic 1999 panel - Serum or Plasm a potassium [moles/volum e] in serum or plasma 3.5 mmol/ L low: 3.5mmo l/Lhig h: 5.1mmo l/L POTAS SIUM 3.5 3.5 - 5.1 mmol/ L 08/13 4:37 AM SCHOOL ADMINISTRATOR [facility] Not Available Not Available 10/31/2024 14:34:59 08/13/19 25 08/13/2024 Compr ehens kaylynn metab olic 1999 panel - Serum or Plasm a chloride [moles/volum e] in serum or plasma 108 mmol/ L low: 98mmol /Lhigh : 107mmo l/L high CHLOR RIGOBERTO 108 (H) 98 - 107 mmol/ L 08/13 4:37 AM [facility] Not Available Not Available 10/31/2024 14:34:59 08/13/19 25 08/13/2024 Compr ehens kaylynn metab olic 1999 panel - Serum or Plasm a carbon dioxide, total [moles/volum e] in serum or plasma 19 mmol/ L low: 22mmol /Lhigh : 30mmol /L low CO2, VENOU S 19 (L) 22 - 30 mmol/ L 08/13 4:37 AM S[facility]OL ADMINISTRATOR [facility] Not Available Not Available 10/31/2024 14:34:59 08/13/19 25 08/13/2024 Compr ehens kaylynn metab olic 2000 panel - Serum or Plasm a anion gap in serum or plasma 15.5 mmol/ L high: 18mmol /L ANION GAP 15.5 <18.0 mmol/ L 08/13 4:37 AM SCHOOL ADMINISTRATOR [facility] Not Available Not Available 10/31/2024 14:34:59 08/13/19 25 08/13/2024 Compr ehens kaylynn metab olic 1999 panel - Serum or Plasm a glucose [mass/volume ] in serum or plasma 107 mg/dL low: 70mg/d Lhigh: 99mg/d L high GLUCO SE 107 (H) 70 - 99 mg/dL 08/13 4:37 AM S[facility]OL ADMINISTRATOR [facility] Not Available Not Available 10/31/2024 14:34:59 08/13/19 25 08/13/2024 Compr ehens kaylynn metab olic 2000 panel - Serum or Plasm a urea nitrogen [mass/volume ] in serum or plasma 16 mg/dL low: 5mg/dL high: 18mg/d L BUN 16 5 - 18 mg/dL 08/13 4:37 AM S[facility]OL ADMINISTRATOR [facility] Not Available Not Available 10/31/2024 14:34:59 08/13/19 25 08/13/2024 Compr mSellerens kaylynn metab olic 1999 panel - Serum or Plasm a creatinine [mass/volume ] in serum or plasma 0.7 mg/dL low: 0.6mg/ dLhigh : 1mg/dL CREAT ININE , BLOOD 0.70 0.60 - 1.00 mg/dL 08/13 4:37 AM [facility] [place] Not Available Not Available 10/31/2024 14:34:59 08/13/19 25 08/13/2024 Compr ehens kaylynn metab olic 2000 panel - Serum or Plasm a urea nitrogen/cre atinine [mass ratio] in serum or plasma 23 text: 12 - 20 ratio high BUN/C REATI NINE RATIO 23 (H) 12 - 20 ratio 08/13 4:37 AM SCHOOL ADMINISTRATOR [facility] Not Available Not Available 10/31/2024 14:34:59 08/13/1908/13/2024 Compr mSellerens kaylynn metab olic 1999 panel - Serum or Plasm a protein [mass/volume ] in serum or plasma 8.1 g/dL low: 6.3g/d Lhigh: 8.2g/d L TOTAL PROTE IN 8.1 6.3 - 8.2 g/dL 08/13 4:37 AM SCHOOL ADMINISTRATOR [facility] [place] [facility] LAB Not Available Not Available 10/31/2024 14:34:59 08/13/19 25 08/13/2024 Compr mSellerens kaylynn metab olic 1999 panel - Serum or Plasm a albumin [mass/volume ] in serum or plasma 4.6 g/dL low: 3.5g/d Lhigh: 5g/dL ALBUM IN 4.6 3.5 - 5.0 g/dL 08/13 4:37 AM S[facility]OL ADMINISTRATOR [facility] [place] [facility] LAB Not Available Not Available 10/31/2024 14:34:59 08/13/1908/13/2024 Compr mSellerens kaylynn metab olic 2000 panel - Serum or Plasm a albumin/glob ulin [mass ratio] in serum or plasma 1.3 low: 1high: 2.2 A/G RATIO 1.3 1.0 - 2.2 08/13 4:37 AM [facility] Not Available Not Available 10/31/2024 14:34:59 08/13/19 25 08/13/2024 Compr mSellerens kaylynn metab olic 1999 panel - Serum or Plasm a calcium [mass/volume ] in serum or plasma 9.7 mg/dL low: 8.7mg/ dLhigh : 10.5mg /dL CALCI UM 9.7 8.7 - 10.5 mg/dL 08/13 4:37 AM [facility] [place] [facility] LAB Not Available Not Available 10/31/2024 14:34:59 08/13/19 25 08/13/2024 Compr ehens kaylynn metab olic 2000 panel - Serum or Plasm a bilirubin.to glenna [mass/volume ] in serum or plasma 0.7 mg/dL low: 0.2mg/ dLhigh : 1.2mg/ dL T BILI 0.7 0.2 - 1.2 mg/dL 08/13 4:37 AM [employer] [facility] [place] [employer] Peer5E R LAB Not Available Not Available 10/31/2024 14:34:59 08/13/1908/13/2024 Compr mSellerens kaylynn metab olic 1999 panel - Serum or Plasm a aspartate aminotransfe rase [enzymatic activity/vol ume] in serum or plasma 12 U/L low: 5U/Lhi gh: 34U/L SGOT (AST) 12 5 - 34 U/L 08/13 4:37 AM [employer] [facility] [place] H ZokosE R LAB Not Available Not Available 10/31/2024 14:34:59 08/13/1908/13/2024 Compr mSellerens kaylynn metab olic 2000 panel - Serum or Plasm a alanine aminotransfe rase [enzymatic activity/vol ume] in serum or plasma 16 U/L low: 0U/Lhi gh: 55U/L SGPT (ALT) 16 0 - 55 U/L 08/13 4:37 AM [facility] [place] [facility] [place] [facility] LAB Not Available Not Available 10/31/2024 14:34:59 08/13/1908/13/2024 Compr mSellerens kaylynn metab olic 2000 panel - Serum or Plasm a alkaline phosphatase [enzymatic activity/vol ume] in serum or plasma 84 U/L low: 40U/Lh igh: 150U/L ALKAL INE PHOSP HATAS E 84 40 - 150 U/L 08/13 4:37 AM [facility] [place] [facility] [place] [facility] LAB Not Available Not Available 10/31/2024 14:34:59 08/13/1908/13/2024 Compr ehens kaylynn JDF olic 1999 panel - Serum or Plasm a glomerular filtration rate/1.73 sq M.predicted among non-blacks [volume rate/area] in serum, plasma or blood by creatinine-b ased formula (MDRD) low: 60 GFR, ESTIM ATED >60 >=60 08/13 4:37 AM [facility] [place] [place] [facility] [facility] Not Available Not Available 10/31/2024 14:34:59 08/13/19 25 08/13/2024 Compr ehens kaylynn metab olic 2000 panel - Serum or Plasm a glomerular filtration rate/1.73 sq M.predicted among blacks [volume rate/area] in serum, plasma or blood by creatinine-b ased formula (MDRD) low: 60 GFR, EST. AFRIC AN >60 >=60 08/13 4:37 AM [employer] [facility] Not Available Not Available 10/31/2024 14:34:59 08/13/19 25 08/13/2024 Compr ehens kaylynn metab olic 2000 panel - Serum or Plasm a glomerular filtration rate/1.73 sq M.predicted among non-blacks [volume rate/area] in serum, plasma or blood by creatinine-b ased formula (MDRD) low: 60 GFR, EST. NONAF RICAN >60 >=60 08/13 4:37 AM [facility] [facility] Not Available Not Available 10/31/2024 14:34:59 08/13/19 25 08/13/2024 Compr ehens kaylynn metab olic 2000 panel - Serum or Plasm a interpretati on and review of laboratory results Abnorm al Not Available Not Available 14:34:59 10/16/1910/15/2024 Lacta te [Mole s/vol ume] in Serum or Plasm a lactate [moles/volum e] in serum or plasma 1.1 mmol/ L low: 0.7mmo l/Lhig h: 2mmol/ L LACTI C ACID 1.1 0.7 - 2.0 mmol/ L 10/15 8:10 PM CDT [facility] [place] [facility] Not Available Not Available 10/31/2024 14:35:03 10/16/1910/15/2024 Lacta te [Mole s/vol ume] in Serum or Plasm a interpretati on and review of laboratory results Normal Not Available Not Available 10/08 14:35:03 10/16/19 25 10/15/2024 Methi cilli n resis tant Staph yloco ccus aureu s (MRSA ) DNA [Pres ence] in Speci men by SRINIVASA with probe detec tion methicillin resistant staphylococc us aureus (MRSA) DNA [presence] in specimen by SRINIVASA with probe detection Negati ve text: negati ve, invali d MRSA PCR RESUL T Negat kaylynn Negat kaylynn, Inval id 10/15 5:52 PM CDT [facility] [place] [facility] LAB Not Available Not Available 10/31/2024 14:35:03 10/16/19 25 10/15/2024 Methi cilli n resis tant Staph yloco ccus aureu s (MRSA ) DNA [Pres ence] in Speci men by SRINIVASA with probe detec tion interpretati on and review of laboratory results Normal Not Available Not Available 10/08 14:35:03 10/16/19 25 10/15/2024 Aceto ne [Pres ence] in Blood acetone [presence] in blood Negati ve text: negati ve ACETO NE Negat kaylynn Negat kaylynn 10/15 2:26 PM CDT [facility] [place] [facility] LAB Not Available Not Available 10/31/2024 14:35:03 10/16/19 25 10/15/2024 Aceto ne [Pres ence] in Blood interpretati on and review of laboratory results Normal Not Available Not Available 10/08 14:35:03 10/16/19 25 10/15/2024 Thyro xine (T4) free [Mass /volu me] in Serum or Plasm a thyroxine (T4) free [mass/volume ] in serum or plasma 1.2 NG/dL low: 0.7NG/ dLhigh : 1.9NG/ dL T4 FREE 1.2 0.7 - 1.9 ng/dL 10/15 5:59 PM CDT [facility] [place] [facility] LAB Not Available Not Available 10/31/2024 14:35:03 10/16/19 25 10/15/2024 Thyro xine (T4) free [Mass /volu me] in Serum or Plasm a interpretati on and review of laboratory results Normal Not Available Not Available 10/08 14:35:03 10/16/19 25 10/15/2024 Thyro tropi n [Unit s/vol ume] in Serum or Plasm a thyrotropin [units/volum e] in serum or plasma 0.606 text: 0.300 - 5.000 mIU/L TSH 0.606 0.300 - 5.000 mIU/L 10/15 5:59 PM CDT [facility] Not Available Not Available 10/31/2024 14:35:03 10/16/19 25 10/15/2024 Thyro tropi n [Unit s/vol ume] in Serum or Plasm a interpretati on and review of laboratory results Normal Not Available Not Available 10/08 14:35:03 10/16/1910/15/2024 Creat ine kinas e [Enzy matic activ ity/v olume ] in Serum or Plasm a creatine kinase [enzymatic activity/vol ume] in serum or plasma 55 U/L low: 29U/Lh igh: 168U/L CK (CPK) 55 29 - 168 U/L 10/15 2:28 PM CDT [facility] LAB Not Available Not Available 10/31/2024 14:35:03 10/16/1910/15/2024 Creat ine kinas e [Enzy matic activ ity/v olume ] in Serum or Plasm a interpretati on and review of laboratory results Normal Not Available Not Available 10/08 14:35:03 10/16/19 25 10/15/2024 Lipas e [Enzy matic activ ity/v olume ] in Serum or Plasm a lipase [enzymatic activity/vol ume] in serum or plasma 11 U/L low: 8U/Lhi gh: 78U/L LIPAS E 11 8 - 78 U/L 10/15 2:28 PM CDT [facility] LAB Not Available Not Available 10/31/2024 14:35:03 10/16/19 25 10/15/2024 Lipas e [Enzy matic activ ity/v olume ] in Serum or Plasm a interpretati on and review of laboratory results Normal Not Available Not Available 10/08 14:35:03 10/16/19 25 10/15/2024 Amyla se [Enzy matic activ ity/v olume ] in Serum or Plasm a amylase [enzymatic activity/vol ume] in serum or plasma 48 U/L low: 25U/Lh igh: 125U/L AMYLA SE 48 25 - 125 U/L 10/15 2:28 PM CDT [facility] R LAB Not Available Not Available 10/31/2024 14:35:03 10/16/19 25 10/15/2024 Amyla se [Enzy matic activ ity/v olume ] in Serum or Plasm a interpretati on and review of laboratory results Normal Not Available Not Available 10/08 14:35:03 10/16/19 25 10/15/2024 C react kaylynn prote in [Mass /volu me] in Serum or Plasm a C reactive protein [mass/volume ] in serum or plasma 0.98 mg/dL high: 0.5mg/ dL high C-MARILOU CTIVE PROTE IN 0.98 (H) <0.50 mg/dL 10/15 2:28 PM CDT [facility] LAB Not Available Not Available 10/31/2024 14:35:03 10/16/19 25 10/15/2024 C react kaylynn prote in [Mass /volu me] in Serum or Plasm a interpretati on and review of laboratory results Abnorm al Not Available Not Available 14:35:03 10/16/19 25 10/15/2024 Compr ehens kaylynn metab olic 1999 panel - Serum or Plasm a sodium [moles/volum e] in serum or plasma 140 mmol/ L low: 136mmo l/Lhig h: 145mmo l/L SODIU M 140 136 - 145 mmol/ L 10/15 1:07 PM CDT [facility] [place] [facility] Not Available Not Available 10/31/2024 14:35:03 10/16/19 25 10/15/2024 Compr ehens kaylynn metab olic 2000 panel - Serum or Plasm a potassium [moles/volum e] in serum or plasma 3.4 mmol/ L low: 3.5mmo l/Lhig h: 5.1mmo l/L low POTAS SIUM 3.4 (L) 3.5 - 5.1 mmol/ L 10/15 1:07 PM [facility]T [facility] Not Available Not Available 10/31/2024 14:35:03 10/16/19 25 10/15/2024 Compr ehens kaylynn metab olic 1999 panel - Serum or Plasm a chloride [moles/volum e] in serum or plasma 105 mmol/ L low: 98mmol /Lhigh : 107mmo l/L CHLOR RIGOBERTO 105 98 - 107 mmol/ L 10/15 1:07 PM [facility] Not Available Not Available 10/31/2024 14:35:03 10/16/19 25 10/15/2024 Compr ehens kaylynn metab olic 1999 panel - Serum or Plasm a carbon dioxide, total [moles/volum e] in serum or plasma 14 mmol/ L low: 22mmol /Lhigh : 30mmol /L low CO2, VENOU S 14 (L) 22 - 30 mmol/ L 10/15 1:07 PM CDT [facility] LAB Not Available Not Available 10/31/2024 14:35:03 10/16/19 25 10/15/2024 Compr ehens kaylynn metab olic 1999 panel - Serum or Plasm a anion gap in serum or plasma 24.4 mmol/ L high: 18mmol /L high ANION GAP 24.4 (H) <18.0 mmol/ L 10/15 1:07 PM CDT [facility] LAB Not Available Not Available 10/31/2024 14:35:03 10/16/19 25 10/15/2024 Compr ehens kaylynn metab olic 1999 panel - Serum or Plasm a glucose [mass/volume ] in serum or plasma 346 mg/dL low: 70mg/d Lhigh: 99mg/d L high GLUCO SE 346 (H) 70 - 99 mg/dL 10/15 1:07 PM CDT [facility] Not Available Not Available 10/31/2024 14:35:03 10/16/1910/15/2024 Compr ehens kaylynn metab olic 1999 panel - Serum or Plasm a urea nitrogen [mass/volume ] in serum or plasma 17 mg/dL low: 5mg/dL high: 18mg/d L BUN 17 5 - 18 mg/dL 10/15 1:07 PM CDT [facility] Not Available Not Available 10/31/2024 14:35:03 10/16/19 25 10/15/2024 Compr ehens kaylynn metab olic 1999 panel - Serum or Plasm a creatinine [mass/volume ] in serum or plasma 0.9 mg/dL low: 0.6mg/ dLhigh : 1mg/dL CREAT ININE , BLOOD 0.90 0.60 - 1.00 mg/dL 10/15 1:07 PM CDT [facility] LAB Not Available Not Available 10/31/2024 14:35:03 10/16/19 25 10/15/2024 Compr ehens kaylynn metab olic 2000 panel - Serum or Plasm a urea nitrogen/cre atinine [mass ratio] in serum or plasma 19 text: 12 - 20 ratio BUN/C REATI NINE RATIO 19 12 - 20 ratio 10/15 1:07 PM CDT [facility] Not Available Not Available 10/31/2024 14:35:03 10/16/1910/15/2024 Compr ehens kaylynn metab olic 1999 panel - Serum or Plasm a protein [mass/volume ] in serum or plasma 8.1 g/dL low: 6g/dLh igh: 8g/dL high TOTAL PROTE IN 8.1 (H) 6.0 - 8.0 g/dL 10/15 1:07 PM CDT [facility] Not Available Not Available 10/31/2024 14:35:03 10/16/19 25 10/15/2024 Compr ehens kaylynn metab olic 2000 panel - Serum or Plasm a albumin [mass/volume ] in serum or plasma 4.5 g/dL low: 3.5g/d Lhigh: 5g/dL ALBUM IN 4.5 3.5 - 5.0 g/dL 10/15 1:07 PM CDT [facility] LAB Not Available Not Available 10/31/2024 14:35:03 10/16/19 25 10/15/2024 Compr ehens kaylynn metab olic 1999 panel - Serum or Plasm a albumin/glob ulin [mass ratio] in serum or plasma 1.3 low: 1high: 2.2 A/G RATIO 1.3 1.0 - 2.2 10/15 1:07 PM CDT [facility] LAB Not Available Not Available 10/31/2024 14:35:03 10/16/19 25 10/15/2024 Compr ehens kaylynn metab olic 2000 panel - Serum or Plasm a calcium [mass/volume ] in serum or plasma 9.1 mg/dL low: 8.7mg/ dLhigh : 10.5mg /dL CALCI UM 9.1 8.7 - 10.5 mg/dL 10/15 1:07 PM CDT [facility] LAB Not Available Not Available 10/31/2024 14:35:03 10/16/19 25 10/15/2024 Compr ehens kaylynn metab olic 2000 panel - Serum or Plasm a bilirubin.to glenna [mass/volume ] in serum or plasma 1.1 mg/dL low: 0.2mg/ dLhigh : 1.2mg/ dL T BILI 1.1 0.2 - 1.2 mg/dL 10/15 1:07 PM CDT [facility] Not Available Not Available 10/31/2024 14:35:03 10/16/19 25 10/15/2024 Compr ehens kaylynn metab olic 2000 panel - Serum or Plasm a aspartate aminotransfe rase [enzymatic activity/vol ume] in serum or plasma 15 U/L high: 43U/L SGOT (AST) 15 <43 U/L 10/15 1:07 PM CDT [facility] Not Available Not Available 10/31/2024 14:35:03 10/16/19 25 10/15/2024 Compr ehens kaylynn metab olic 2000 panel - Serum or Plasm a alanine aminotransfe rase [enzymatic activity/vol ume] in serum or plasma 7 U/L high: 56U/L SGPT (ALT) 7 <56 U/L 10/15 1:07 PM CDT [facility] [place] [facility] LAB Not Available Not Available 10/31/2024 14:35:03 10/16/1910/15/2024 Compr ehens kaylynn metab olic 2000 panel - Serum or Plasm a alkaline phosphatase [enzymatic activity/vol ume] in serum or plasma 88 U/L low: 40U/Lh igh: 150U/L ALKAL INE PHOSP HATAS E 88 40 - 150 U/L 10/15 1:07 PM CDT [facility] [place] [facility] LAB Not Available Not Available 10/31/2024 14:35:03 10/16/1910/15/2024 Compr ehens kaylynn metab olic 2000 panel - Serum or Plasm a glomerular filtration rate/1.73 sq M.predicted among non-blacks [volume rate/area] in serum, plasma or blood by creatinine-b ased formula (MDRD) low: 60 GFR, ESTIM ATED >60 >=60 10/15 1:07 PM CDT [facility] [place] [facility] LAB Not Available Not Available 10/31/2024 14:35:03 10/16/1910/15/2024 Compr ehens kaylynn metab olic 2000 panel - Serum or Plasm a glomerular filtration rate/1.73 sq M.predicted among blacks [volume rate/area] in serum, plasma or blood by creatinine-b ased formula (MDRD) low: 60 GFR, EST. AFRIC AN >60 >=60 10/15 1:07 PM CDT [facility] [place] [facility] [facility] LAB Not Available Not Available 10/31/2024 14:35:03 10/16/19 25 10/15/2024 Compr ehens kaylynn metab olic 2000 panel - Serum or Plasm a glomerular filtration rate/1.73 sq M.predicted among non-blacks [volume rate/area] in serum, plasma or blood by creatinine-b ased formula (MDRD) low: 60 GFR, EST. NONAF RICAN >60 >=60 10/15 1:07 PM CDT [facility] [place] [facility] [facility] LAB Not Available Not Available 10/31/2024 14:35:03 10/16/1910/15/2024 Compr ehens kaylynn metab olic 2000 panel - Serum or Plasm a interpretati on and review of laboratory results Abnorm al Not Available Not Available 14:35:03 10/17/1910/16/2024 Gluco se [Mass /volu me] in Blood glucose [mass/volume ] in blood 229 mg/dL low: 70mg/d Lhigh: 99mg/d L high GLUCO SE,BE DSIDE POCT 229 (H) 70 - 99 mg/dL 10/16 10:44 AM CDT [facility] [place] [facility] LAB Not Available Not Available 10/31/2024 14:35:04 10/17/19 25 10/16/2024 Gluco se [Mass /volu me] in Blood interpretati on and review of laboratory results Abnorm al Not Available Not Available 14:35:04 10/17/1910/16/2024 Basic metab olic 2000 panel - Serum or Plasm a sodium [moles/volum e] in serum or plasma 139 mmol/ L low: 136mmo l/Lhig h: 145mmo l/L SODIU M 139 136 - 145 mmol/ L 10/16 8:41 AM CDT [facility] [place] [facility] LAB Not Available Not Available 10/31/2024 14:35:04 10/17/1910/16/2024 Basic metab olic 2000 panel - Serum or Plasm a potassium [moles/volum e] in serum or plasma 3.1 mmol/ L low: 3.5mmo l/Lhig h: 5.1mmo l/L low POTAS SIUM 3.1 (L) 3.5 - 5.1 mmol/ L 10/16 8:41 AM CDT [facility] Not Available Not Available 10/31/2024 14:35:04 10/17/1910/16/2024 Basic metab olic 2000 panel - Serum or Plasm a chloride [moles/volum e] in serum or plasma 113 mmol/ L low: 98mmol /Lhigh : 107mmo l/L high CHLOR RIGOBERTO 113 (H) 98 - 107 mmol/ L 10/16 8:41 AM CDT [facility] Not Available Not Available 10/31/2024 14:35:04 10/17/1910/16/2024 Basic metab olic 2000 panel - Serum or Plasm a carbon dioxide, total [moles/volum e] in serum or plasma 19 mmol/ L low: 22mmol /Lhigh : 30mmol /L low CO2, VENOU S 19 (L) 22 - 30 mmol/ L 10/16 8:41 AM CDT [facility] LAB Not Available Not Available 10/31/2024 14:35:04 10/17/1910/16/2024 Basic metab olic 2000 panel - Serum or Plasm a anion gap in serum or plasma 10.1 mmol/ L high: 18mmol /L ANION GAP 10.1 <18.0 mmol/ L 10/16 8:41 AM CDT [facility] Not Available Not Available 10/31/2024 14:35:04 10/17/1910/16/2024 Basic metab olic 2000 panel - Serum or Plasm a glucose [mass/volume ] in serum or plasma 143 mg/dL low: 70mg/d Lhigh: 99mg/d L high GLUCO SE 143 (H) 70 - 99 mg/dL 10/16 8:41 AM CDT [facility] Not Available Not Available 10/31/2024 14:35:04 10/17/19 25 10/16/2024 Basic metab olic 2000 panel - Serum or Plasm a urea nitrogen [mass/volume ] in serum or plasma 9 mg/dL low: 5mg/dL high: 18mg/d L BUN 9 5 - 18 mg/dL 10/16 8:41 AM CDT [facility] LAB Not Available Not Available 10/31/2024 14:35:04 10/17/1910/16/2024 Basic JDF olic 1999 panel - Serum or Plasm a creatinine [mass/volume ] in serum or plasma 0.72 mg/dL low: 0.6mg/ dLhigh : 1mg/dL CREAT ININE , BLOOD 0.72 0.60 - 1.00 mg/dL 10/16 8:41 AM CDT [facility] [place] [facility] LAB Not Available Not Available 10/31/2024 14:35:04 10/17/1910/16/2024 Basic metab olic 1999 panel - Serum or Plasm a urea nitrogen/cre atinine [mass ratio] in serum or plasma 13 text: 12 - 20 ratio BUN/C REATI NINE RATIO 13 12 - 20 ratio 10/16 8:41 AM CDT [facility] [place] [facility] LAB Not Available Not Available 10/31/2024 14:35:04 10/17/1910/16/2024 Basic JDF olic 1999 panel - Serum or Plasm a calcium [mass/volume ] in serum or plasma 7.7 mg/dL low: 8.7mg/ dLhigh : 10.5mg /dL low CALCI UM 7.7 (L) 8.7 - 10.5 mg/dL 10/16 8:41 AM CDT [facility] LAB Not Available Not Available 10/31/2024 14:35:04 10/17/1910/16/2024 Basic metab olic 1999 panel - Serum or Plasm a glomerular filtration rate/1.73 sq M.predicted among non-blacks [volume rate/area] in serum, plasma or blood by creatinine-b ased formula (MDRD) low: 60 GFR, ESTIM ATED >60 >=60 10/16 8:41 AM CDT [facility] [place] [facility] LAB Not Available Not Available 10/31/2024 14:35:04 10/17/1910/16/2024 Basic metab olic 2000 panel - Serum or Plasm a glomerular filtration rate/1.73 sq M.predicted among blacks [volume rate/area] in serum, plasma or blood by creatinine-b ased formula (MDRD) low: 60 GFR, EST. AFRIC AN >60 >=60 10/16 8:41 AM CDT [facility] [facility] Not Available Not Available 10/31/2024 14:35:04 10/17/1910/16/2024 Basic metab olic 2000 panel - Serum or Plasm a glomerular filtration rate/1.73 sq M.predicted among non-blacks [volume rate/area] in serum, plasma or blood by creatinine-b ased formula (MDRD) low: 60 GFR, EST. NONAF RICAN >60 >=60 10/16 8:41 AM CDT [facility] [place] [facility] LAB Not Available Not Available 10/31/2024 14:35:04 10/17/1910/16/2024 Basic metab olic 2000 panel - Serum or Plasm a interpretati on and review of laboratory results Abnorm al Not Available Not Available 14:35:04 10/17/1910/16/2024 CBC W Auto Diffe renti al panel - Blood leukocytes [#/volume] in blood by automated count 11.06 text: 4.00 - 12.00 10(3)/ mcL WBC 11.06 4.00 - 12.00 10(3) /mcL 10/16 4:00 AM CDT [facility] LAB Not Available Not Available 10/31/2024 14:35:04 10/17/1910/16/2024 CBC W Auto Diffe renti al panel - Blood erythrocytes [#/volume] in blood by automated count 4.69 text: 3.80 - 5.30 10(6)/ mcL RBC 4.69 3.80 - 5.30 10(6) /mcL 10/16 4:00 AM CDT [facility] [employer] [facility] LAB Not Available Not Available 10/31/2024 14:35:04 10/17/1910/16/2024 CBC W Auto Diffe renti al panel - Blood hemoglobin [mass/volume ] in blood 13.3 g/dL low: 12g/dL high: 15.8g/ dL HEMOG LOBIN (HGB) 13.3 12.0 - 15.8 g/dL 10/16 4:00 AM [facility] Not Available Not Available 10/31/2024 14:35:04 10/17/1910/16/2024 CBC W Auto Diffe renti al panel - Blood hematocrit [volume fraction] of blood by automated count 39.4 % low: 36%hig h: 47% HEMAT OCRIT (HCT) 39.4 36.0 - 47.0 % 10/16 4:00 AM CD[facility] Not Available Not Available 10/31/2024 14:35:04 10/17/1910/16/2024 CBC W Auto Diffe robertti al panel - Blood MCV [entitic volume] by automated count 84 fL low: 82fLhi gh: 96fL MCV 84.0 82.0 - 96.0 fL 10/16 4:00 AM CDT [facility] Not Available Not Available 10/31/2024 14:35:04 10/17/1910/16/2024 CBC W Auto Diffe renti al panel - Blood MCH [entitic mass] by automated count 28.4 pg low: 26pghi gh: 34pg MCH 28.4 26.0 - 34.0 pg 10/16 4:00 AM CDT [facility] Not Available Not Available 10/31/2024 14:35:04 10/17/1910/16/2024 CBC W Auto Diffe renti al panel - Blood MCHC [mass/volume ] by automated count 33.8 g/dL low: 31g/dL high: 36g/dL MCHC 33.8 31.0 - 36.0 g/dL 10/16 4:00 AM CDT [facility] Not Available Not Available 10/31/2024 14:35:04 10/17/1910/16/2024 CBC W Auto Diffe renti al panel - Blood platelets [#/volume] in blood 230 text: 140 - 440 10(3)/ mcL PLATE LET COUNT 230 140 - 440 10(3) /mcL 10/16 4:00 AM CDT [facility] LAB Not Available Not Available 10/31/2024 14:35:04 10/17/19 25 10/16/2024 CBC W Auto Diffe renti al panel - Blood erythrocyte distribution width [ratio] by automated count 12.7 % low: 11.8%h igh: 15.5% RDW 12.7 11.8 - 15.5 % 10/16 4:00 AM CDT [facility] LAB Not Available Not Available 10/31/2024 14:35:04 10/17/1910/16/2024 CBC W Auto Diffe renti al panel - Blood platelet mean volume [entitic volume] in blood by automated count 10.3 fL low: 9.7fLh igh: 12.4fL MPV 10.3 9.7 - 12.4 fL 10/16 4:00 AM CDT [facility] LAB Not Available Not Available 10/31/2024 14:35:04 10/17/19 25 10/16/2024 CBC W Auto Diffe renti al panel - Blood neutrophils/ 100 leukocytes in blood by automated count 67.8 % low: 47%hig h: 73% NEUTR OPHIL S 67.8 47.0 - 73.0 % 10/16 4:00 AM CDT [facility] Not Available Not Available 10/31/2024 14:35:04 10/17/1910/16/2024 CBC W Auto Diffe renti al panel - Blood lymphocytes/ 100 leukocytes in blood by automated count 22.2 % low: 18%hig h: 42% LYMPH OCYTE S 22.2 18.0 - 42.0 % 10/16 4:00 AM CDT [facility] Not Available Not Available 10/31/2024 14:35:04 10/17/19 25 10/16/2024 CBC W Auto Diffe renti al panel - Blood monocytes/10 0 leukocytes in blood by automated count 7.1 % low: 4%high : 12% MONOC YTES 7.1 4.0 - 12.0 % 10/16 4:00 AM CDT [facility] Not Available Not Available 10/31/2024 14:35:04 10/17/19 25 10/16/2024 CBC W Auto Diffe renti al panel - Blood eosinophils/ 100 leukocytes in blood by automated count 2.5 % low: 0%high : 5% EOSIN OPHIL S 2.5 0.0 - 5.0 % 10/16 4:00 AM CDT [facility] Not Available Not Available 10/31/2024 14:35:04 10/17/19 25 10/16/2024 CBC W Auto Diffe renti al panel - Blood basophils/10 0 leukocytes in blood by automated count 0.4 % low: 0%high : 1% BASOP HILS 0.4 0.0 - 1.0 % 10/16 4:00 AM CDT [facility] Not Available Not Available 10/31/2024 14:35:04 10/17/19 25 10/16/2024 CBC W Auto Diffe renti al panel - Blood neutrophils [#/volume] in blood by automated count 7.49 text: 1.60 - 7.70 10(3)/ mcL [facility]OL [place] NEUTR OPHIL S 7.49 1.60 - 7.70 10(3) /mcL 10/16 4:00 AM CDT [facility] Not Available Not Available 10/31/2024 14:35:04 10/17/19 25 10/16/2024 CBC W Auto Diffe renti al panel - Blood lymphocytes [#/volume] in blood by automated count 2.46 text: 1.30 - 3.20 10(3)/ mcL [facility] [place] LYMPH OCYTE S 2.46 1.30 - 3.20 10(3) /mcL 03/10 /2025 4:00 AM CDT [facility] Not Available Not Available 10/31/2024 14:35:04 10/17/1910/16/2024 CBC W Auto Diffe renti al panel - Blood monocytes [#/volume] in blood by automated count 0.79 text: 0.20 - 1.00 10(3)/ mcL [facility] [place] MONOC YTES 0.79 0.20 - 1.00 10(3) /mcL 10/16 4:00 AM [facility] Not Available Not Available 10/31/2024 14:35:04 10/17/1910/16/2024 CBC W Auto Diffe renti al panel - Blood eosinophils [#/volume] in blood by automated count 0.28 text: 0.00 - 0.40 10(3)/ mcL [facility] [place] EOSIN OPHIL 0.28 0.00 - 0.40 10(3) /mcL 10/16 4:00 AM CDT [facility] Not Available Not Available 10/31/2024 14:35:04 10/17/1910/16/2024 CBC W Auto Diffe renti al panel - Blood basophils [#/volume] in blood by automated count 0.04 text: 0.00 - 0.10 10(3)/ mcL ABSOL [place] BASOP HILS 0.04 0.00 - 0.10 10(3) /mcL 10/16 4:00 AM CDT [facility] Not Available Not Available 10/31/2024 14:35:04 10/17/1910/16/2024 CBC W Auto Diffe renti al panel - Blood nucleated erythrocytes /100 leukocytes [ratio] in blood 0 NRBC PER 100 WBC 0 10/16 4:00 AM [facility] Not Available Not Available 10/31/2024 14:35:04 10/17/19 25 10/16/2024 Phosp hate [Mass /volu me] in Serum or Plasm a phosphate [mass/volume ] in serum or plasma 2.4 mg/dL low: 2.5mg/ dLhigh : 4.5mg/ dL low PHOSP HORUS 2.4 (L) 2.5 - 4.5 mg/dL 10/16 4:53 AM CDT [facility] Not Available Not Available 10/31/2024 14:35:04 10/17/1910/16/2024 Phosp hate [Mass /volu me] in Serum or Plasm a interpretati on and review of laboratory results Abnorm al Not Available Not Available 14:35:04 10/17/1910/16/2024 Magne sium [Mass /volu me] in Serum or Plasm a magnesium [mass/volume ] in serum or plasma 2.1 mg/dL low: 1.6mg/ dLhigh : 2.6mg/ dL MAGNE SIUM 2.1 1.6 - 2.6 mg/dL 10/16 4:53 AM CDT [facility] Not Available Not Available 10/31/2024 14:35:04 10/17/1910/16/2024 Magne sium [Mass /volu me] in Serum or Plasm a interpretati on and review of laboratory results Normal Not Available Not Available 10/08 14:35:04 11/03/1911/03/2024 Beta hydro xybut yrate [Mole s/vol ume] in Serum or Plasm a beta hydroxybutyr ate [moles/volum e] in serum or plasma 1.8 mmol/ L high: 0.4mmo l/L high BHYD BETA- HYDRO XYBUT YRATE 1.8 (H) <0.4 mmol/ L 11/03 8:40 PM CDT [facility] Not Available Not Available 11/07/2024 09:42:42 11/03/1911/03/2024 Beta hydro xybut yrate [Mole s/vol ume] in Serum or Plasm a interpretati on and review of laboratory results Abnorm al Not Available Not Available 09:42:42 11/03/1911/02/2024 CBC W Auto Diffe renti al panel - Blood leukocytes [#/volume] in blood by automated count 7.72 text: 4.00 - 12.00 10(3)/ mcL WBC 7.72 4.00 - 12.00 10(3) /mcL 11/02 12:22 AM CDT [facility] Not Available Not Available 11/02/2024 14:51:00 11/03/19 25 11/02/2024 CBC W Auto Diffe renti al panel - Blood erythrocytes [#/volume] in blood by automated count 4.9 text: 3.80 - 5.30 10(6)/ mcL RBC 4.90 3.80 - 5.30 10(6) /mcL 11/02 12:22 AM CDT [facility] Not Available Not Available 11/02/2024 14:51:00 11/03/19 25 11/02/2024 CBC W Auto Diffe renti al panel - Blood hemoglobin [mass/volume ] in blood 14 g/dL low: 12g/dL high: 15.8g/ dL HEMOG LOBIN (HGB) 14.0 12.0 - 15.8 g/dL 11/02 12:22 AM CDT [facility] Not Available Not Available 11/02/2024 14:51:00 11/03/19 25 11/02/2024 CBC W Auto Diffe renti al panel - Blood hematocrit [volume fraction] of blood by automated count 41.3 % low: 36%hig h: 47% HEMAT OCRIT (HCT) 41.3 36.0 - 47.0 % 11/02 12:22 AM CDT [facility] Not Available Not Available 11/02/2024 14:51:00 11/03/19 25 11/02/2024 CBC W Auto Diffe renti al panel - Blood MCV [entitic volume] by automated count 84.3 fL low: 82fLhi gh: 96fL MCV 84.3 82.0 - 96.0 fL 11/02 12:22 AM CDT [facility] Not Available Not Available 11/02/2024 14:51:00 11/03/19 25 11/02/2024 CBC W Auto Diffe renti al panel - Blood MCH [entitic mass] by automated count 28.6 pg low: 26pghi gh: 34pg MCH 28.6 26.0 - 34.0 pg 11/02 12:22 AM CDT [facility] Not Available Not Available 11/02/2024 14:51:00 11/03/19 25 11/02/2024 CBC W Auto Diffe renti al panel - Blood MCHC [mass/volume ] by automated count 33.9 g/dL low: 31g/dL high: 36g/dL MCHC 33.9 31.0 - 36.0 g/dL 11/02 12:22 AM CDT [facility] Not Available Not Available 11/02/2024 14:51:00 11/03/19 25 11/02/2024 CBC W Auto Diffe renti al panel - Blood platelets [#/volume] in blood 195 text: 140 - 440 10(3)/ mcL PLATE LET COUNT 195 140 - 440 10(3) /mcL 11/02 12:22 AM CDT [facility] Not Available Not Available 11/02/2024 14:51:00 11/03/19 25 11/02/2024 CBC W Auto Diffe renti al panel - Blood erythrocyte distribution width [ratio] by automated count 12.2 % low: 11.8%h igh: 15.5% RDW 12.2 11.8 - 15.5 % 11/02 12:22 AM CDT [facility] Not Available Not Available 11/02/2024 14:51:00 11/03/19 25 11/02/2024 CBC W Auto Diffe renti al panel - Blood platelet mean volume [entitic volume] in blood by automated count 11.7 fL low: 9.7fLh igh: 12.4fL MPV 11.7 9.7 - 12.4 fL 11/02 12:22 AM CDT [facility] Not Available Not Available 11/02/2024 14:51:00 11/03/19 25 11/02/2024 CBC W Auto Diffe renti al panel - Blood neutrophils/ 100 leukocytes in blood by automated count 67.6 % low: 47%hig h: 73% NEUTR OPHIL S 67.6 47.0 - 73.0 % 11/02 12:22 AM CDT [facility] Not Available Not Available 11/02/2024 14:51:00 11/03/19 25 11/02/2024 CBC W Auto Diffe renti al panel - Blood lymphocytes/ 100 leukocytes in blood by automated count 26.2 % low: 18%hig h: 42% LYMPH OCYTE S 26.2 18.0 - 42.0 % 11/02 12:22 AM CDT [facility] Not Available Not Available 11/02/2024 14:51:00 11/03/19 25 11/02/2024 CBC W Auto Diffe renti al panel - Blood monocytes/10 0 leukocytes in blood by automated count 4.7 % low: 4%high : 12% MONOC YTES 4.7 4.0 - 12.0 % 11/02 12:22 AM CDT [facility] Not Available Not Available 11/02/2024 14:51:00 11/03/19 25 11/02/2024 CBC W Auto Diffe renti al panel - Blood eosinophils/ 100 leukocytes in blood by automated count 1 % low: 0%high : 5% EOSIN OPHIL S 1.0 0.0 - 5.0 % 11/02 12:22 AM CDT [facility] Not Available Not Available 11/02/2024 14:51:00 11/03/19 25 11/02/2024 CBC W Auto Diffe renti al panel - Blood basophils/10 0 leukocytes in blood by automated count 0.5 % low: 0%high : 1% BASOP HILS 0.5 0.0 - 1.0 % 11/02 12:22 AM CDT [facility] Not Available Not Available 11/02/2024 14:51:00 03/27/20 25 11/02/2024 CBC W Auto Diffe renti al panel - Blood neutrophils [#/volume] in blood by automated count 5.22 text: 1.60 - 7.70 10(3)/ mcL ABSOL [place] NEUTR OPHIL S 5.22 1.60 - 7.70 10(3) /mcL 11/02 12:22 AM CDT [facility] Not Available Not Available 11/02/2024 14:51:00 11/03/19 25 11/02/2024 CBC W Auto Diffe renti al panel - Blood lymphocytes [#/volume] in blood by automated count 2.02 text: 1.30 - 3.20 10(3)/ mcL ABSOL [place] LYMPH OCYTE S 2.02 1.30 - 3.20 10(3) /mcL 11/02 12:22 AM CDT [facility] Not Available Not Available 11/02/2024 14:51:00 11/03/19 25 11/02/2024 CBC W Auto Diffe renti al panel - Blood monocytes [#/volume] in blood by automated count 0.36 text: 0.20 - 1.00 10(3)/ mcL ABSOL [place] MONOC YTES 0.36 0.20 - 1.00 10(3) /mcL 11/02 12:22 AM CDT [facility] Not Available Not Available 11/02/2024 14:51:00 11/03/19 25 11/02/2024 CBC W Auto Diffe renti al panel - Blood eosinophils [#/volume] in blood by automated count 0.08 text: 0.00 - 0.40 10(3)/ mcL ABSOL [place] EOSIN OPHIL 0.08 0.00 - 0.40 10(3) /mcL 11/02 12:22 AM CDT [facility] Not Available Not Available 11/02/2024 14:51:00 11/03/19 25 11/02/2024 CBC W Auto Diffe renti al panel - Blood basophils [#/volume] in blood by automated count 0.04 text: 0.00 - 0.10 10(3)/ mcL ABSOL [place] BASOP HILS 0.04 0.00 - 0.10 10(3) /mcL 11/02 12:22 AM CDT [facility] Not Available Not Available 11/02/2024 14:51:00 11/03/19 25 11/02/2024 CBC W Auto Diffe renti al panel - Blood nucleated erythrocytes /100 leukocytes [ratio] in blood 0 NRBC PER 100 WBC 0 11/02 12:22 AM CDT [facility] Not Available Not Available 11/02/2024 14:51:00 11/03/1911/02/2024 Gas panel - Venou s blood oxygen gas flow oxygen delivery system 97 O2 STATU S 97 11/02 12:35 AM CDT [facility] Not Available Not Available 11/02/2024 14:50:59 11/03/1911/02/2024 Gas panel - Venou s blood pH of venous blood 7.4 low: 7.34hi gh: 7.43 PH VENOU S 7.40 7.34 - 7.43 11/02 12:35 AM CDT [facility] Not Available Not Available 11/02/2024 14:50:59 11/03/1911/02/2024 Gas panel - Venou s blood carbon dioxide [partial pressure] in venous blood 32 text: 41 - 51 mmHg low PCO2 (VENO US) 32 (L) 41 - 51 mmHg 11/02 12:35 AM CDT [facility] Not Available Not Available 11/02/2024 14:50:59 11/03/19 25 11/02/2024 Gas panel - Venou s blood oxygen [partial pressure] in venous blood 59 text: 30 - 50 mmHg high PO2 VENOU S 59 (H) 30 - 50 mmHg 11/02 12:35 AM CDT [facility] Not Available Not Available 11/02/2024 14:50:59 11/03/19 25 11/02/2024 Gas panel - Venou s blood oxygen saturation in venous blood 72 % low: 60%hig h: 85% O2 SAT JACK, MEASU RED 72 60 - 85 % 11/02 12:35 AM CDT [facility] Not Available Not Available 11/02/2024 14:50:59 11/03/19 25 11/02/2024 Gas panel - Venou s blood bicarbonate [moles/volum e] in blood 20.2 mmol/ L low: 22mmol /Lhigh : 26mmol /L low BICAR BONAT E 20.2 (L) 22.0 - 26.0 mmol/ L 11/02 12:35 AM CDT [facility] Not Available Not Available 11/02/2024 14:50:59 11/03/19 25 11/02/2024 Gas panel - Venou s blood base venous -3 mmol/ L low: -2mmol /Lhigh : 3mmol/ L low BASE VENOU S -3.0 (L) -2.0 - 3.0 mmol/ L 11/02 12:35 AM CDT [facility] Not Available Not Available 11/02/2024 14:50:59 11/03/1911/02/2024 Gas panel - Venou s blood carboxyhemog lobin/hemogl obin.total in blood 3.4 % low: 0%high : 5% CARBO XYHEM OGLOB IN 3.4 0.0 - 5.0 % 11/02 12:35 AM CDT [facility] Not Available Not Available 11/02/2024 14:50:59 11/03/19 25 11/02/2024 Gas panel - Venou s blood methemoglobi n/hemoglobin .total in blood 0.5 % low: 0%high : 1.5% METHE MOGLO BIN 0.5 0.0 - 1.5 % 11/02 12:35 AM CDT [facility] Not Available Not Available 11/02/2024 14:50:59 11/03/19 25 11/02/2024 Gas panel - Venou s blood Unknown Analyte Interp retati on - The usual approa ch to interp reting a VBG consis ts of using the venous measur ements to estima te the corres pondin g arteri al values , then using these estima jonah values for clinic al decisi on-david ing exactl y as if an ABG had been perfor med. The differ ence betwee n the venous measur ements and the arteri al measur ements depend s upon the site of venous sampli ng and varies among labora tories . Correl ation with arteri al blood gases - Althou gh arteri al blood gas analys is is more accura te than venous analys is for the assess ment of oxygen ation, measur ement of PCO2, pH, and HCO3 are simila r with some minor adjust ments: The centra l venous pH is usuall y 0.03 to 0.05 pH units lower than the arteri al pH and the PCO2 is usuall y 4 to 5 mmHg higher , with little or no increa se in HCO3. Mixed venous blood (ie, SvO2 drawn from a pulmon dl artery cathet er) gives result s simila r to centra l venous blood (ie, ScvO2 drawn from a centra l venous cathet er). The periph eral venous pH is approx imatel y 0.02 to 0.04 pH units lower than the arteri al pH, the venous serum HCO3 concen tratio n is approx imatel y 1 to 2 meq/L higher , and the venous PCO2 is approx imatel y 3 to 8 mmHg higher . There are no venous to arteri al conver sions for ScvO2, SvO2, or periph eral venous oxyhem oglobi n satura tion (PvO2) . Import antly, suffic ient variab ility betwee n arteri al and venous blood gas values may exist such that period ic correl ation betwee n arteri al and venous blood gas values is always khanh t. Inter preta tion - The usual appro ach to inter preti ng a VBG consi sts of using the venou s measu remen ts to estim ate the corre spond ing arter ial value s, then using these estim ated value s for clini mone decis ion-m aking exact ly as if an ABG had been perfo rmed. The diffe rence betwe en the venou s measu remen ts and the arter ial measu remen ts depen ds upon the site of venou s sampl ing and varie s among labor atori es. Corre latio n with arter ial blood gases - Altho ugh arter ial blood gas destinee sis is more accur ate than venou s destinee sis for the asses sment of oxyge natio n, measu remen t of PCO2, pH, and HCO3 are simil ar with some minor adjus tment s: The centr al venou s pH is usual ly 0.03 to 0.05 pH units lower than the arter ial pH and the PCO2 is usual ly 4 to 5 mmHg highe r, with littl e or no incre ase in HCO3. Mixed venou s blood (ie, SvO2 drawn from a pulmo nary arter y sarita ter) gives resul ts simil ar to centr al venou s blood (ie, ScvO2 drawn from a centr al venou s sarita ter). The perip heral venou s pH is appro ximat sandra 0.02 to 0.04 pH units lower than the arter ial pH, the venou s serum HCO3 mimi ntrat ion is appro ximat sandra 1 to 2 meq/L highe r, and the venou s PCO2 is appro ximat sandra 3 to 8 mmHg highe r. There are no venou s to arter ial conve rsion s for ScvO2 , SvO2, or perip heral venou s oxyhe moglo bin satur ation (PvO2 ). Impor tantl y, suffi cient varia bilit y betwe en arter ial and venou s blood gas value s may exist such that perio dic corre latio n betwe en arter ial and venou s blood gas value s is alway s prude nt. Not Available Not Available 11/02/2024 14:50:59 11/03/19 25 11/02/2024 Gas panel - Venou s blood interpretati on and review of laboratory results Abnorm al Not Available Not Available 14:50:59 11/03/19 25 11/02/2024 Compr ehens kaylynn metab olic 1999 panel - Serum or Plasm a sodium [moles/volum e] in serum or plasma 136 mmol/ L low: 136mmo l/Lhig h: 145mmo l/L MAKEDA Chandler 136 136 - 145 mmol/ L 11/02 12:42 AM CDT [facility] Not Available Not Available 11/02/2024 14:50:59 11/03/1911/02/2024 Compr ehens kaylynn metab olic 1999 panel - Serum or Plasm a potassium [moles/volum e] in serum or plasma 3.2 mmol/ L low: 3.5mmo l/Lhig h: 5.1mmo l/L low POTAS SIUM 3.2 (L) 3.5 - 5.1 mmol/ L 11/02 12:42 AM CDT [facility] Not Available Not Available 11/02/2024 14:50:59 11/03/19 25 11/02/2024 Compr ehens kaylynn metab olic 1999 panel - Serum or Plasm a chloride [moles/volum e] in serum or plasma 104 mmol/ L low: 98mmol /Lhigh : 107mmo l/L CHLOR RIGOBERTO 104 98 - 107 mmol/ L 11/02 12:42 AM CDT [facility] Not Available Not Available 11/02/2024 14:50:59 11/03/19 25 11/02/2024 Compr ehens kaylynn metab olic 1999 panel - Serum or Plasm a carbon dioxide, total [moles/volum e] in serum or plasma 21 mmol/ L low: 22mmol /Lhigh : 30mmol /L low CO2, VENOU S 21 (L) 22 - 30 mmol/ L 11/02 12:42 AM CDT [facility] Not Available Not Available 11/02/2024 14:50:59 11/03/19 25 11/02/2024 Compr ehens kaylynn metab olic 1999 panel - Serum or Plasm a anion gap in serum or plasma 14.2 mmol/ L high: 18mmol /L ANION GAP 14.2 <18.0 mmol/ L 11/02 12:42 AM CDT [facility] Not Available Not Available 11/02/2024 14:50:59 11/03/19 25 11/02/2024 Compr ehens kaylynn metab olic 1999 panel - Serum or Plasm a glucose [mass/volume ] in serum or plasma 263 mg/dL low: 70mg/d Lhigh: 99mg/d L high GLUCO SE 263 (H) 70 - 99 mg/dL 11/02 12:42 AM CDT [facility] Not Available Not Available 11/02/2024 14:50:59 11/03/19 25 11/02/2024 Compr ehens kaylynn metab olic 2000 panel - Serum or Plasm a urea nitrogen [mass/volume ] in serum or plasma 14 mg/dL low: 5mg/dL high: 18mg/d L BUN 14 5 - 18 mg/dL 11/02 12:42 AM CDT [facility] Not Available Not Available 11/02/2024 14:50:59 11/03/19 25 11/02/2024 Compr ehens kaylynn metab olic 1999 panel - Serum or Plasm a creatinine [mass/volume ] in serum or plasma 0.77 mg/dL low: 0.6mg/ dLhigh : 1mg/dL CREAT ININE , BLOOD 0.77 0.60 - 1.00 mg/dL 11/02 12:42 AM CDT [facility] Not Available Not Available 11/02/2024 14:50:59 11/03/19 25 11/02/2024 Compr ehens kaylynn metab olic 1999 panel - Serum or Plasm a urea nitrogen/cre atinine [mass ratio] in serum or plasma 18 text: 12 - 20 ratio BUN/C REATI NINE RATIO 18 12 - 20 ratio 11/02 12:42 AM CDT [facility] Not Available Not Available 11/02/2024 14:50:59 11/03/19 25 11/02/2024 Compr ehens kaylynn metab olic 2000 panel - Serum or Plasm a protein [mass/volume ] in serum or plasma 7.9 g/dL low: 6g/dLh igh: 8g/dL TOTAL PROTE IN 7.9 6.0 - 8.0 g/dL 11/02 12:42 AM CDT [facility] [employer] [facility] Not Available Not Available 11/02/2024 14:50:59 11/03/19 25 11/02/2024 [facility] 1999 panel - Serum or Plasm a albumin [mass/volume ] in serum or plasma 4.3 g/dL low: 3.5g/d Lhigh: 5g/dL ALBUM IN 4.3 3.5 - 5.0 g/dL 11/02 12:42 AM CDT [facility] Not Available Not Available 11/02/2024 14:50:59 11/03/19 25 11/02/2024 [facility]pr [facility] 1999 panel - Serum or Plasm a albumin/glob ulin [mass ratio] in serum or plasma 1.2 low: 1high: 2.2 A/G RATIO 1.2 1.0 - 2.2 11/02 12:42 AM CDT [facility] Not Available Not Available 11/02/2024 14:50:59 11/03/19 25 11/02/2024 [facility] 1999 panel - Serum or Plasm a calcium [mass/volume ] in serum or plasma 8.8 mg/dL low: 8.7mg/ dLhigh : 10.5mg /dL CALCI UM 8.8 8.7 - 10.5 mg/dL 11/02 12:42 AM CDT [facility] [employer] [facility] Not Available Not Available 11/02/2024 14:50:59 11/03/19 25 11/02/2024 Compr [employer] [facility] 1999 panel - Serum or Plasm a bilirubin.to glenna [mass/volume ] in serum or plasma 1 mg/dL low: 0.2mg/ dLhigh : 1.2mg/ dL T BILI 1.0 0.2 - 1.2 mg/dL 11/02 12:42 AM CDT [facility] Not Available Not Available 11/02/2024 14:50:59 11/03/19 25 11/02/2024 Compr ehens kaylynn metab olic 1999 panel - Serum or Plasm a aspartate aminotransfe rase [enzymatic activity/vol ume] in serum or plasma 18 U/L high: 43U/L SGOT (AST) 18 <43 U/L 11/02 12:42 AM CDT [facility] Not Available Not Available 11/02/2024 14:50:59 11/03/19 25 11/02/2024 Compr ehens kaylynn metab olic 1999 panel - Serum or Plasm a alanine aminotransfe rase [enzymatic activity/vol ume] in serum or plasma 13 U/L high: 56U/L SGPT (ALT) 13 <56 U/L 11/02 12:42 AM CDT [facility] Not Available Not Available 11/02/2024 14:50:59 11/03/19 25 11/02/2024 Compr ehens kaylynn metab olic 1999 panel - Serum or Plasm a alkaline phosphatase [enzymatic activity/vol ume] in serum or plasma 70 U/L low: 40U/Lh igh: 150U/L ALKAL INE PHOSP HATAS E 70 40 - 150 U/L 11/02 12:42 AM CDT [facility] Not Available Not Available 11/02/2024 14:50:59 11/03/19 25 11/02/2024 Compr ehens kaylynn metab olic 1999 panel - Serum or Plasm a glomerular filtration rate/1.73 sq M.predicted [volume rate/area] in serum, plasma or blood by creatinine-b ased formula (CKD-epi 2020) low: 60 GFR, ESTIM ATED >60 >=60 11/02 12:42 AM CDT [facility] Not Available Not Available 11/02/2024 14:50:59 11/03/19 25 11/02/2024 Compr ehens kaylynn metab olic 2000 panel - Serum or Plasm a glomerular filtration rate/1.73 sq M.predicted among blacks [volume rate/area] in serum, plasma or blood by creatinine-b ased formula (MDRD) low: 60 GFR, EST. AFRIC AN >60 >=60 11/02 12:42 AM CDT [facility] Not Available Not Available 11/02/2024 14:50:59 11/03/19 25 11/02/2024 Compr ehens kaylynn metab olic 1999 panel - Serum or Plasm a glomerular filtration rate/1.73 sq M.predicted among non-blacks [volume rate/area] in serum, plasma or blood by creatinine-b ased formula (MDRD) low: 60 GFR, EST. NONAF RICAN >60 >=60 11/02 12:42 AM CDT [facility] Not Available Not Available 11/02/2024 14:50:59 11/03/19 25 11/02/2024 Compr ehens kaylynn metab olic 2000 panel - Serum or Plasm a interpretati on and review of laboratory results Abnorm al Not Available Not Available 14:50:59 11/03/19 25 11/02/2024 Gluco se [Mass /volu me] in Blood glucose [mass/volume ] in blood 243 mg/dL low: 70mg/d Lhigh: 99mg/d L high GLUCO SE,BE DSIDE POCT 243 (H) 70 - 99 mg/dL 11/02 12:14 AM CDT [facility] Not Available Not Available 11/02/2024 14:50:59 11/03/19 25 11/02/2024 Gluco se [Mass /volu me] in Blood interpretati on and review of laboratory results Abnorm al Not Available Not Available 14:50:59 11/10/19 25 11/09/2024 Hemog lobin A1c/H emogl obin. total in Blood hemoglobin A1C, POC 103 % low: 4%high : 5.6% Hemog lobin A1C, POC 103 4.0 - 5.6 % Not Available Not Available 11/10/2024 13:56:06 11/10/19 25 11/09/2024 Hemog lobin A1c/H emogl obin. total in Blood interpretati on and review of laboratory results Abnorm al Not Available Not Available 13:56:06 12/01/19 25 11/30/2024 elect denver diogr am No observ ation record ed. TA In-Office Order Internal Use Only DO Not Attach Compendium DO Not Attach Compendium, Do Not Delete/merge, [id number] 11/30/2024 17:24:11 12/01/19 elect rocar diogr am No observ ation record ed. Not Available 2024 17:24:11 Result Notes None recorded. Problems Name Problem SNOMED Code Status Onset Date Resolution Date Notes Provider Name and Address Organization Details Recorded Time Diabetes mellitus 01934754 Completed 201906/09/2021 Type 1 Alexander Whitfield MD Attn: [address] [place], [address], [facility] 1 10:20:24 Type 1 diabetes mellitus 08221479 Active 2020 on insulin pump -sees endo Alexander Whitfield MD Attn: [address] [place], [address], [place] - [facility] 2 12:17:42 Chronic depressi on [id number] Active 2021 sees psychiatr ist at [facility] Alexander Whitfield MD Attn: [address] [place], [address], [place] - [facility] 2 12:17:42 Forgetfu l [id number] Active 2021 sees neuro Alexander Whitfield MD Attn: [address] [place], [address], [place] - [facility] 2 15:40:12 Problem Notes None recorded. Procedures Surgical History Date Name Laterality Status Provider Name and Address Organization Details Recorded Time 3 Date of Last Pap Smear completed LANIE Albert [facility] 06/28/2023 09:33:47 Remove tonsils and adenoids completed Courtney Vitale [place] 05/10/2020 16:20:29 Imaging Results Imaging Date Name Status LastModified by Organization Details LastModified Time 11/30/2024 electrocardiogram completed TA In-Offi ce Order Internal Use Only DO Not Attach Compendium DO Not Attach Compendium, Do Not Delete/merge, [id number] 11/30/2024 17:24:11 11/30/2024 electrocardiogram completed [email or web address] Informa tion not available 11/30/2024 17:24:11 Procedure Notes None recorded. Medical Equipment None Reported. Allergies Allergen ID Allergen Name Allergen Category Reaction Reaction Severity Criticality Documentation Date Start Date Code Code System Note Provider Name and Address Organization Details Recorded Time 483517 Product containin g penicilli n (product) medicatio n hives Not available Not available 05/10/2020 [id number] SNOMED Courtney Vitale null, [place] - [facility] [facility] 0 16:13:21 [id number] amoxicill in medicatio n rash Not available high 11/30/20242010 723 RxNorm Julia Briggs RN null, [place] - [place] 5 14:23:30 Medications Name Sig Start Date Stop Date Status Note LastModified by Organization Details LastModified Time Prescript ion - Renewal active Not Available Not Available Not Available oxybutyni n chloride ER 10 mg tablet,ex tended release 24 hr TAKE 1 TABLET BY MOUTH EVERY DAY active Not Available Not Available No t Available azithromy an 250 mg tablet TK 2 TS PO ON DAY 1, THEN TK 1 T PO D FOR 4 DAYS 12/10 completed Not Available Not Available Not Available ibuprofen 800 mg tablet TAKE 1 TABLET BY MOUTH THREE TIMES DAILY FOR 10 DAYS 03/16 completed Not Available Not Available Not Available Glucagon Emergency Kit 1 mg solution for injection active Not Available Not Available No t Available fluconazo le 150 mg tablet TAKE 1 TABLET BY MOUTH EVERY DAY FOR 1 DAY 11/01 completed Not Available Not Available Not Available benzonata te 200 mg capsule TAKE 1 CAPSULE BY MOUTH THREE TIMES DAILY 04/02 completed Not Available Not Available Not Available levetirac etam 500 mg tablet TAKE 1 TABLET BY MOUTH TWICE DAILY 2024 active Not Available Not Available Not Avai lable phenazopy ridine 200 mg tablet TAKE 1 TABLET BY MOUTH THREE TIMES DAILY FOR 5 DAYS 03/20 completed Not Available Not Available Not Available Lantus U-100 Insulin 100 unit/mL subcutane ous solution INJ 45 UNI SC HS OR UTD IN CASE OF PUMP FAILURE 06/09 completed not taking Not Available Not Available Not Available metronida zole 500 mg tablet TAKE 1 TABLET BY MOUTH THREE TIMES DAILY FOR 5 DAYS FOR ABDOMINA L INFECTIO N 11/01 completed Not Available Not Available Not Available ciproflox acin 500 mg tablet TAKE 1 TABLET BY MOUTH TWICE DAILY FOR 7 DAYS 08/20 completed Not Available Not Available Not Available sulfameth oxazole 800 mg-trimet hoprim 160 mg tablet TAKE 1 TABLET BY MOUTH TWICE DAILY FOR 10 DAYS 04/01 completed Not Available Not Available Not Available triamcino lone acetonide 0.1 % topical cream APPLY THIN LAYER TOPICALL Y TO THE AFFECTED AREA TWICE DAILY 03/16 completed Not Available Not Available Not Available potassium chloride ER 20 mEq tablet,ex tended release(p art/cryst ) TAKE 2 TABLETS BY MOUTH EVERY DAY FOR 2 DAYS 09/03 completed Not Available Not Available Not Available omeprazol e 10 mg capsule,d elayed release Take 1 capsule every day by oral route for 30 days. 03/16 completed Not Available Not Available Not Available cephalexi n 500 mg capsule TAKE 1 CAPSULE BY MOUTH FOUR TIMES DAILY FOR 10 DAYS 02/13 completed Not Available Not Available Not Available nystatin 100,000 unit/gram topical cream APPLY TOPICALL Y TO THE AFFECTED AREA TWICE DAILY 06/09 completed Not Available Not Available Not Available glucose 4 gram chewable tablet TAKE 4 TABLETS BY MOUTH NEEDED FOR LOW BLOOD SUGAR active Not Available Not Available No t Available ibuprofen 400 mg tablet TAKE 1 TABLET BY MOUTH EVERY 6 HOURS NEEDED FOR PAIN 06/09 completed Not Available Not Available Not Available nicotine 21 mg/24 hr daily transderm al patch APPLY ONE PATCH ON THE SKIN DAILY 03/16 completed Not Available Not Available Not Available sertralin e 25 mg tablet TK 1 T PO D 06/09 completed taking 50 mg Not Available Not Available Not Available omeprazol e 20 mg capsule,d elayed release 2024 active Not Available Not Available Not Avai lable hydrocort isone 2.5 % topical cream APPLY THIN LAYER TOPICALL Y TO THE AFFECTED AREA TWICE DAILY FOR 1 TO 2 WEEKS active Not Available Not Available No t Available metoprolo l succinate ER 25 mg tablet,ex tended release 24 hr TAKE 1 TABLET BY MOUTH EVERY DAY active Not Available Not Available No t Available insulin lispro (U-100) 100 unit/mL subcutane ous solution INFUSE HUMALOG PER OMNIPOD. TOTAL DAILY DOSE IS 100 UNITS. active Not Available Not Available No t Available cefuroxim e axetil 500 mg tablet TAKE 1 TABLET BY MOUTH TWICE DAILY FOR 5 DAYS FOR ABDOMINA L INFECTIO N 11/01 completed Not Available Not Available Not Available levofloxa an 750 mg tablet 08/20 completed Not Available Not Available Not Available albuterol sulfate HFA 90 mcg/actua tion aerosol inhaler INHALE 2 PUFFS BY MOUTH FOUR TIMES DAILY NEEDED FOR SHORTNES S OF BREATH OR WHEEZING active Not Available Not Available No t Available oxybutyni n chloride 5 mg tablet TAKE 1 TABLET BY MOUTH TWICE DAILY 08/20 completed Not Available Not Available Not Available cefdinir 300 mg capsule 08/22 completed Not Available Not Available Not Available clotrimaz ole 1 % topical cream APPLY TO THE AFFECTED AND SURROUND ING AREAS OF SKIN BY TOPICAL ROUTE 2 TIMES PER DAY IN THE MORNING AND EVENING active Not Available Not Available No t Available sertralin e 50 mg tablet TAKE 1 TABLET BY MOUTH DAILY 01/07 completed not taking Not Available Not Available Not Available medroxypr ogesteron e 150 mg/mL intramusc ular suspensio n Inject 1 mL every 3 months by intramus cular route. 2024 active Not Available Not Available Not Avai lable Ketostix strips TEST FIRST MORNING URINE AND DIRECTED active Not Available Not Available No t Available buspirone 15 mg tablet TAKE 1 TABLET BY MOUTH TWICE DAILY active Not Available Not Available No t Available medroxypr ogesteron e 150 mg/mL intramusc ular syringe Inject 1 mL every 3 months by intramus cular route. 11/30 completed Not Available Not Available Not Available escitalop joe 10 mg tablet 01/07 completed not taking Not Available Not Available Not Available escitalop joe 20 mg tablet TK 1 T PO D 06/09 completed not taking Not Available Not Available Not Available aripipraz ole 10 mg tablet TAKE 1 TABLET BY MOUTH AT BEDTIME 04/02 completed increase d to 15 mg Not Available Not Available Not Available aripipraz ole 15 mg tablet TAKE 1 TABLET BY MOUTH DAILY active Not Available Not Available No t Available aripipraz ole 5 mg tablet TAKE 1 TABLET BY MOUTH AT BEDTIME 03/27 completed Not Available Not Available Not Available bupropion HCl XL 150 mg 24 hr tablet, extended release TAKE 1 TABLET BY MOUTH EVERY MORNING 08/22 completed not taking Not Available Not Available Not Available Upworthytronic Minimed Insulin active Not Available Not Available Not Available nitrofura ntoin monohydra te/macroc rystals 100 mg capsule TAKE 1 CAPSULE BY MOUTH EVERY 12 HOURS FOR 7 DAYS 03/20 completed Not Available Not Available Not Available chlorhexi dine gluconate 0.12 % mouthwash RINSE WITH 15 ML AFTER BREAKFAS T AND AFTER DINNER TWICE DAILY 03/16 completed Not Available Not Available Not Available Lantus Solostar U-100 Insulin 100 unit/mL (3 mL) subcutane ous pen ADMINIST ER 30 UNITS UNDER THE SKIN DAILY active PRN Not Available Not Available No t Available Lantus Solostar U-100 Insulin 40 units daily subq 07/03 completed Not Available Not Available Not Available OneTouch Verio test strips TEST THREE TIMES DAILY active Not Available Not Available No t Available TRUEplus Insulin 0.5 mL 31 gauge x 5/16 syringe USE FOR INJECTIO NS 1 TO 2 TIMES D 04/28 completed Not Available Not Available Not Available Humalog Mix 06/09 completed Not Available Not Available Not Available OneTouch Verio Flex Meter 06/09 completed Not Available Not Available Not Available Dexcom G6 Splitter Tender USE DIRECTED 06/09 completed Not Available Not Available Not Available Omnipod Dash Pods (Gen 4) subcutane ous cartridge CHANGE PODS EVERY 3 DAYS 07/16 completed Not Available Not Available Not Available ID NOW COVID-19 Test Kit TEST DIRECTED 06/09 completed Not Available Not Available Not Available Gvoke HypoPen 2-Pack 1 mg/0.2 mL subcutane ous auto-inje ctor INJECT 1 MG FOR SEVERE HYPOGLYC LOGAN Villa [employer] ANOTHER active Not Available Not Available No t Available BinaxNOW COVID-19 Ag Self Test kit TEST DIRECTED TODAY 11/01 completed Not Available Not Available Not Available Omnipod 5 G6 Pods (Gen 5) subcutane ous cartridge ANAYA POD EVERY 3 DAYS FOR 90 DAYS EVERY active pt has mini med - no long has Not Available Not Available Not Available Omnipod 5 G6 Intro Kit (Gen 5) subcutane ous cartridge with controlle r USE DIRECTED active pt has mini med - no longer has Not Available Not Available Not Available Guardian 4 Glucose Sensor device USE as directed TO monitor blood glucose. CHANGE sensor every 5-7 DAYS. active Not Available Not Available No t Available Guardian 4 Transmitt er device USE with Guardian 4 Sensors TO monitor blood glucose as directed active Not Available Not Available No t Available Vitals Date Recorded Body height Body mass index (BMI) Body weight Systolic blood pressure Diastolic blood pressure Provider Name and Address Organization Details Last Updated DateTime 08/08/2024 154.94 cm 25.3 kg/m2 96544.38 g 120 mm[Hg] 80 mm[Hg] LANIE Corbett [place] - [place] 4 15:24:44 Date Recorded Body height Body mass index (BMI) Body weight Heart rate Respiratory rate Body temperature Oxygen saturation Oxygen saturation in Arterial blood by Pulse oximetry Systolic blood pressure Diastolic blood pressure Provider Name and Address Organization Details Last Updated DateTime 5 154.94 cm 25.5 kg/m2 31205.6 1 g 90 /min 14 /min 97.2 [degF] 97 % 97 % 104 mm[Hg] 68 mm[Hg] Shell Mullins MA [place] - [place] 5 14:20:21 Date Recorded Body height Body mass index (BMI) Body weight Heart rate Systolic blood pressure Diastolic blood pressure Provider Name and Address Organization Details Last Updated DateTime 5 154.94 cm 26.3 kg/m2 89025.3 4 g 92 /min 104 mm[Hg] 69 mm[Hg] Courtney Vitale [place] - [place] 5 11:54:41 Date Recorded Body height Body mass index (BMI) Body weight Oxygen saturation Oxygen saturation in Arterial blood by Pulse oximetry Heart rate Respiratory rate Body temperature Systolic blood pressure Diastolic blood pressure Provider Name and Address Organization Details Last Updated DateTime 5 154.94 cm 26.2 kg/m2 90102.9 g 97 % 97 % 88 /min 16 /min 97.7 [degF] 86 mm[Hg] 55 mm[Hg] Johana Lindo MA [facility] 5 14:25:53 Date Recorded Body height Body mass index (BMI) Body weight Heart rate Oxygen saturation Oxygen saturation in Arterial blood by Pulse oximetry Systolic blood pressure Diastolic blood pressure Provider Name and Address Organization Details Last Updated DateTime 5 154.94 cm 26.3 kg/m2 52027.3 4 g 97 /min 97 % 97 % 106 mm[Hg] 70 mm[Hg] Julia Briggs RN [facility] 14:23:17 Social History Question Answer Notes LastModified by Organizat ion Details LastModified Time Tobacco Smoking Status Current Every Day Smoker current vape Julia Briggs RN null, [facility] 11/30/2024 14:26:09 Do You Have An Advance Directive? No [email or web address] Information not available 11/24/2023 What Is Your Level Of Alcohol Consumption? None Pt Quit 2023 Information not available 08/22/2024 Are You Blind Or Do You Have Difficulty Seeing? No Glasses Information not available 05/25/2024 What Is Your Level Of Caffeine Consumption? Moderate Soda Information not available 08/20/2021 How Much Tobacco Do You Chew? None Information not available 05/10/2020 In The 14 Days Before Symptom Onset, Have You Had Close Contact With A Laboratory-confi rmed COVID-19 While That Case Was Ill? No Information not available 06/09/2021 In The 14 Days Before Symptom Onset, Have You Had Close Contact With A Person Who Is Under Investigation For COVID-19 While That Person Was Ill? No Information not available 06/09/2021 Have You Been To An Area Known To Be High Risk For COVID-19? No Information not available 06/09/2021 Are You Currently Employed? Yes Information not available 09/30/2023 Are You Deaf Or Do You Have Serious Difficulty Hearing? No Information not available 06/09/2021 What Type Of Diet Are You Following? REGULAR [email or web address] Information not available 05/10/2020 Do You Or Have You Ever Used E-cigarettes Or Vape? Current User Of Electronic Cigarettes 25mg Nicotine Information not available 01/07/2022 Education 12 [email or web address] Information no t available 05/10/2020 What Is The Highest Grade Or Level Of School You Have Completed Or The Highest Degree You Have Received? [id number] Information not available 06/09/2021 What Is Your Occupation? [employer] Information not available 08/22/2024 Are There Any Guns Present In Your Home? No Information not available 04/27/2022 Live Alone Or With Others? With Others [email or web address] Information not available 05/10/2020 What Was The Date Of Your Most Recent Tobacco Screening? 11/30/2024 Information not available 11/30/2024 How Many Children Do You Have? 0 Information not available 05/10/2020 Performs Monthly Self-breast Exam? No [email or web address] Information not available 05/10/2020 Do You Use Protection During Sex? No [email or web address] Information not available 05/10/2020 What Is Your Relationship Status? Single Information not available 05/10/2020 Do You Use Your Seat Belt Or Car Seat Routinely? Yes Information not available 06/09/2021 Seat Belts Used Routinely Yes [email or web address] Information not available 05/10/2020 Are You Sexually Active? Yes [email or web address] Information not available 05/10/2020 Do You Have Smoke And Carbon Monoxide Detectors In Your Home? Yes [email or web address] Information not available 01/02/2021 At What Age Did You Start Smoking Tobacco? 19 Information not available 01/07/2022 Are You Passively Exposed To Smoke? Yes [email or web address] Information not available 04/01/2021 Do You Or Have You Ever Used Smokeless Tobacco? Never Used Smokeless Tobacco [email or web address] Information not available 05/10/2020 How Much Tobacco Do You Smoke? 0.5 PPD Information not available 09/30/2023 General Stress Level Medium Information not available 05/10/2020 Do You Feel Stressed (tense, Restless, Nervous, Or Anxious, Or Unable To Sleep At Night)? [id number] Information not available 08/22/2024 Do You Use Any Illicit Or Recreational Drugs? No Marijuana- Pt Quit 07/31/2024 Information not available 08/22/2024 Do You Use Sunscreen Routinely? Yes Sometimes Information not available 04/27/2022 Has Tobacco Cessation Counseling Been Provided? Yes [email or web address] Information not available 03/20/2022 On What Date Was Tobacco Cessation Counseling Provided? 11/30/2024 Information not available 11/30/2024 Do You Or Have You Ever Used Any Other Forms Of Tobacco Or Nicotine? Yes [email or web address] Information not available 10/04/2020 How Many Years Have You Used E-cigarettes Or Vape? 2 [email or web address] Information not available 03/27/2022 Sex: Female Functional Status Question Answer Note LastModified by Organization D etails LastModified Time Are you able to care for yourself? Yes Information n ot available 06/09/2021 What is your exercise level? None work Information not available 09/30/2023 Mental Status None recorded. Family History Relationship Description Onset Age of this Age Resolved Age Notes LastModified by Organization Details LastModified Time Maternal Grandmother Malignant neoplasm of lung [email or web address] Not available 2019 16:17:33 Unspecified Relation Diabetes mellitus Both sides of family (T1, T2) Not available 05/10/2020 16:18:10 Medical History Condition Response Coronary Artery Disease N Other N Atrial Fibrillation N High Blood Pressure N Depression Y COPD N Blood Clots N Anxiety Disorder Y Muscle, Joint, or Bone Problems N Acid Reflux (GERD) Y Cancer N Stroke N Headaches N Kidney or Bladder Problems Y Skin Problems N Asthma N Allergies N Hepatitis N High Cholesterol N Liver Disease N Thyroid Problems N GI Problems N Anemia N Heart Attack (VT) N Diabetes Y Seizures/Epilepsy N Osteoporosis N Heart Failure N Gynecological History Statement/Question Response Flow Light Date of LMP 07/31/2024 Menses Monthly No STIs/STDs N Date of Last Pap Smear 06/23/2023 Duration of Flow (days) 5 Age at Menarche 14 Current Control Method Depo-Lens Grinder Rough a LMP Approximate Obstetrics History GPAL:G 0 P 0 0 0 0 Immunizations Vaccine Type Date Status Note Provider Luis rajput and Address Organization Details Recorded Time Tdap 01/17/2022 completed Alexander [place] MD Attn: Accounting[address] [facility], [place], [address], [facility] - [facility] 04/02/2023 11:28:25 Past Encounters Encounter ID Performer Location Encounter Start Date Encounter Closed Date Diagnosis/Indication Diagnosis SNOMED-CT Code Diagnosis ICD10 Code Diagnosis Note [id number] EVARISTO Hsu [address] [facility] [place] [address] 05/10/2020 15:54:20 05/13/2020 09:31:33 Pain in pelvis 00427996 R10.2 Will order pelvic ultrasound . Pt advised on treatment options for ovarian cysts and fibroids including but not limited to control use. Pt educated on other causes of pelvic pain included but not limited to constipati on or bladder issues. Pt verbalized understand ing. Will follow up pending results. [id number] EVARISTO Hsu [address] [facility] [place] [address] 09/03/2020 14:29:43 09/04/2020 13:12:45 At increased risk of urinary tract infection [id number] Z91.89 1. Will send meds out for UTI 2. Pt instructed to increase fluids, decrease soda, sugary beverages and caffeinate d beverages. 3. To call office if symptoms worsen or do not improve with treatment. Vaginal discharge 763936 006 N89.8 Nuswab done and sent to lab. Counseled on STD prevention and condom use. Counseled on yeast and BV prevention . Will follow up pending lab results. [id number] EVARISTO Hsu 14 OB [address] [facility] [place] [address] 10/04/2020 13:49:28 10/07/2020 10:46:41 Contraception care management 612892187 Z30.9 1. All forms of control reviewed with patient including risks, benefits, pros and cons. 2. Patient verbalized understand ing of all forms and that abstinence is the only true form of control. 3. Condom use reviewed as well and prevention and transmissi on of STD's. 4. Depo injection called to pharmacy 5. Will return Wednesday for nurse visit [id number] MD Hannah Wilson [address] [facility] [place] [address] 10/07/2020 12:04:40 10/08/2020 11:58:24 Contraception care management 606388502 Z30.9 [id number] EVARISTO Hsu 14 OB [address] [facility] [place] [address] 10/31/2020 16:25:46 11/01/2020 11:34:49 Bacterial vaginosis 433831024 N76.0 Nuswab done and sent to lab. Counseled on STD prevention and condom use. Counseled on yeast and BV prevention . Will follow up pending lab results. Vaginal irritation 94923 6004 N89.8 [id number] EVARISTO Hsu 14 OB [address] [facility] [place] [address] 01/02/2021 11:06:53 01/07/2021 10:23:27 Surveillance of depot contraception done [id number] 9104 Z30.42 [id number] EVARISTO Hsu 14 OB [address] [facility] [place] [address] 04/01/2021 14:41:08 04/02/2021 07:44:32 Surveillance of depot contraception done [id number] 9104 Z30.42 1. All forms of control reviewed with patient including risks, benefits, pros and cons. 2. Patient verbalized understand ing of all forms and that abstinence is the only true form of control. 3. Condom use reviewed as well and prevention and transmissi on of STD's. 4. Depo injection given 5. Will return q 3 months for injections , sooner if needed. Candidiasis of vagina 72 214158 B37.3 Meds sent to pharmacy. Counseled on bv/yeast prevention and treatment. Will call office back if treatment does not help with symptoms. Pt verbalized understand ing. 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 -pt is on sertraline per psychiatri st [id number] MD Hannah Wilson 14 OB [address] [facility] [address] [place] [place], [place] [address] [address] 07/01/2021 16:47:09 07/02/2021 08:15:05 Surveillance of depot contraception done [id number] 9104 Z30.42 [id number] Alexander [place] MD [facility] (Adult Med) [address] [facility] [place] [address] 08/20/2021 11:01:36 08/22/2021 08:20:56 Unintentional weight loss 515772781 R63.4 possibly due to poor po intake - counselled - pt to see rn icu since she has type 1 DM for proper diet counsellin g-pt declined GI referral at this timecheck celiac panel /hiv Type 1 eliane betes mellitus 61570040 E10.9 -pt is on insulin pump-pt to f/u with endo Chronic depression 97698 0009 F34.1 stable on sertraline [id number] EVARISTO Hsu 14 [address] [facility] [address] [place] [address] 09/26/2021 14:04:08 09/29/2021 06:06:31 Surveillance of depot contraception done [id number] 9104 Z30.42 1. All forms of control reviewed with patient including risks, benefits, pros and cons. 2. Patient verbalized understand ing of all forms and that abstinence is the only true form of control. 3. Condom use reviewed as well and prevention and transmissi on of STD's. 4. Depo injection given 5. Will return q 3 months for injections , sooner if needed. [id number] EVARISTO Hsu [address] [place] [address] 12/23/2021 13:58:51 12/24/2021 09:40:51 Contraception care management 184474642 Z30.9 1. All forms of control reviewed with patient including risks, benefits, pros and cons. 2. Patient verbalized understand ing of all forms and that abstinence is the only true form of control. 3. Condom use reviewed as well and prevention and transmissi on of STD's. 4. Depo injection given 5. Will return q 3 months for injections , sooner if needed. [id number] [facility] [address] [place] [address] 01/07/2022 11:53:47 01/08/2022 10:01:48 Chronic depression 721612969 F34.1 -[facility] is on [facility]-pt is off of sertraline Type 1 eliane betes mellitus 28843639 E10.9 -pt is on insulin pump-pt to f/[facility] [id number] [facility] [address] [place] [address] 02/13/2022 16:42:09 02/16/2022 09:33:15 At increased risk of urinary tract infection 309086845 Z91.89 1. Will send meds out for UTI 2. Pt instructed to increase fluids, decrease soda, sugary beverages and caffeinate d beverages. 3. To call office if symptoms worsen or do not improve with treatment. [id number] EVARISTO Hsu [address] [place] [address] 03/20/2022 12:25:31 03/23/2022 09:33:56 Surveillance of depot contraception done 3000612114 9104 Z30.42 1. All forms of control reviewed with patient including risks, benefits, pros and cons. 2. Patient verbalized understand ing of all forms and that abstinence is the only true form of control. 3. Condom use reviewed as well and prevention and transmissi on of STD's. 4. Depo injection given 5. Will return q 3 months for injections , sooner if needed. Smoker 76302789 F17.944 [id number] MD Bianca Mcmullen (Adult Med) [address] [place] [address] 03/27/2022 11:13:52 03/30/2022 12:16:14 Chronic depression 864771417 F34.1 with irritabili ty /anger issues -pt is on buspar/pradip lify -seeing psychiatri st at [facility] to discuss with psychiatri st and pt to see therapist as well-pt is off of sertraline Type 1 eliane betes mellitus 56047058 E10.9 with hypoglycem ic episodes -pt is on insulin pump-pt to f/u with endo and discuss about low blood sugars - educated pt to avoid skipping meals Hypoglycemia 894460396 E 16.2 -pt to discuss with her endo and precaution s and instructio ns discussed with pt [id number] MD Bianca Mcmullen (Adult Med) [address] [place] [address] 04/27/2022 11:58:19 04/29/2022 12:14:27 Chronic depression 336787122 F34.1 with irritabili ty /anger issues -pt is on buspar/pradip lify -seeing psychiatri st at [facility] to discuss with psychiatri st and pt to see therapist as well-pt is off of sertraline Type 1 eliane betes mellitus 09496587 E10.9 with hypoglycem ic episodes -pt is on insulin pump-pt to f/u with endo and discuss about low blood sugars - educated pt to avoid skipping meals Forgetful [id number] R41.3 with stuttering /dizziness - mom wants to get evaluated with neuro [id number] Isabel Cooney, TREE TAPPING LABORER-[facility] 14 OB [address] [facility] [address] Mcclendon [address] [place] [address] 1 06/17/2022 14:54:57 06/18/2022 09:26:52 Contraception care management [id number] Z30.9 1. All forms of control reviewed with patient including risks, benefits, pros and cons. 2. Patient verbalized understand ing of all forms and that abstinence is the only true form of control. 3. Condom use reviewed as well and prevention and transmissi on of STD's. 4. Depo injection given 5. Will return q 3 months for injections , sooner if needed. Overweight [id number] E66 .3 Smoker 45586055 F17.727 [id number] Alexander [place] MD [facility] (Adult Med) [address] Mcclendon [address] [place] [address] 07/16/2022 14:27:57 07/17/2022 09:49:12 Chronic depression 340318852 F34.1 with irritabili ty /anger issues -pt is on buspar/pradip lify -seeing psychiatri [facility] at [facility] to discuss with psychiatri st and pt to see therapist as well-pt is off of sertraline Type 1 eliane betes mellitus 62320560 E10.9 with hypoglycem ic episodes -pt is on insulin pump -last a 1c was 7 a month ago with endo-pt to f/u with endo and discuss about low blood sugars - educated pt to avoid skipping meals Viral syndrome [id number] B34.9 -keep good hydration/ supportive care - go to ER if problem worsen Forgetful 01601571 R41.3 with stuttering /dizziness - pt sees neuro [id number] EVARISTO Hsu [address] [place] [address] Dr Mcclendon [address] [place] [address] 1 09/16/2022 16:00:11 09/17/2022 09:00:09 Contraception care management [id number] Z30.9 [id number] EVARISTO Hsu [address] [place] [address] Dr Mcclendon [address] [place] [address] 1 12/10/2022 11:55:21 12/14/2022 10:58:48 Contraception care management 696706270 Z30.9 1. All forms of control reviewed with patient including risks, benefits, pros and cons. 2. Patient verbalized understand ing of all forms and that abstinence is the only true form of control. 3. Condom use reviewed as well and prevention and transmissi on of STD's. 4. Depo injection given 5. Will return q 3 months for injections , sooner if needed. Pruritic rash 06919632 L 28.2 Per pt request will refer to derm for ongoing skin issues. [id number] NAGA HsuBC [place] 14 OB [address] [facility] [address] Mcclendon [address] [place], [place] [address] [address] 03/11/2023 14:05:12 03/16/2023 09:41:34 Contraception care management [id number] Z30.9 [id number] [facility] [address] Mcclendon [address] [place] [address] 04/02/2023 10:59:47 04/05/2023 10:36:17 Chronic depression 908203553 F34.1 with irritabili ty /anger issues -pt is on buspar/pradip lify -seeing psychiatri st at [facility] to discuss with psychiatri st and pt to see therapist as well-pt is off of sertraline Type 1 eliane betes mellitus 47869555 E10.9 -pt is on insulin pump -last a 1c was around 9 few wks ago with endo-pt to f/u with endo Bilateral earache 443168 003 H92.03 due to allergies /pt has flonase at home- pt to return to clinic if problem continues [id number] Isabel Cooney [facility] 14 OB [address] [facility] [address] Mcclendon [address] [place], [place] [address] [address] 06/03/2023 14:24:44 06/04/2023 12:48:51 Contraception care management 614486342 Z30.9 [id number] [facility]oney [facility] OB [address] [facility] [address] Mcclendon [address] [place], [place] [address] [address] 06/23/2023 14:54:19 06/24/2023 09:37:56 Gynecologic examination 03467508 Z01.419 1. Counseled regarding prevention of STD's , condom use and prevention . 2. Counseled regarding contracept kaylynn options, risk factors and side effects. 3. Advised avoidance of tobacco, alcohol, and drugs . 4. Counseled regarding folic acid supplement ation, calcium needs and prevention of osteoporos is . 5. BSE reviewed and recommende d. 6. Follow up in one year or sooner if needed. Overweight 328634042 E66 .3 Discussed diet and weight loss. Discussed making healthier food choices and increasing exercise. Discussed going to a rn icu. Smoker 45096149 F17.200 smoking cessation informatio n give. pt understand s the risk factors associated with smoking including heart disease, blood clots, stroke and increase risks for cancers. [id number] NAGA Hsu [place] 14 OB [address] [facility] [place] [address] 08/27/2023 14:09:14 08/30/2023 08:48:16 Surveillance of depot contraception done [id number] 9104 Z30.42 1. All forms of control reviewed with patient including risks, benefits, pros and cons. 2. Patient verbalized understand ing of all forms and that abstinence is the only true form of control. 3. Condom use reviewed as well and prevention and transmissi on of STD's. 4. Depo injection given 5. Will return q 3 months for injections , sooner if needed. Overweight 373310906 E66 .3 Discussed diet and weight loss. Discussed making healthier food choices and increasing exercise. Discussed going to a rn icu. Smoker 42991457 F17.200 smoking cessation informatio n give. pt understand s the risk factors associated with smoking including heart disease, blood clots, stroke and increase risks for cancers. [id number] MD Bianca Mcmullen (Adult Med) [address] Mcclendon 8 [facility] [address] 09/30/2023 12:08:39 10/06/2023 12:13:59 Pityriasis rosea 42536927 L42 vs versicolor - pt to avoid steroid cream since the diagnosis is not sure-reass ured-refer to derm since her rash is getting worse and lasting for > a year Type 1 eliane betes mellitus 00781218 E10.9 -pt is on insulin pump per endo-pt to f/u with endo Chronic depression 16392 0009 F34.1 with irritabili ty /anger issues -pt is on buspar/pradip lify -seeing psychiatri st at [facility] to discuss with psychiatri st and pt to see therapist as well-pt is off of sertraline [id number] EVARISTO Hsu 14 OB [address] [facility] [place] [address] 11/24/2023 16:07:28 11/25/2023 08:50:13 Surveillance of depot contraception done 7280937148 9104 Z30.42 1. All forms of control reviewed with patient including risks, benefits, pros and cons. 2. Patient verbalized understand ing of all forms and that abstinence is the only true form of control. 3. Condom use reviewed as well and prevention and transmissi on of STD's. 4. Depo injection given 5. Will return q 3 months for injections , sooner if needed. [id number] MD Hannah Wilson [address] Mcclendon [address] [place] [address] 02/22/2024 17:04:09 02/25/2024 08:23:05 Surveillance of depot contraception done 4051742120 9104 Z30.42 1. All forms of control reviewed with patient including risks, benefits, pros and cons. 2. Patient verbalized understand ing of all forms and that abstinence is the only true form of control. 3. Condom use reviewed as well and prevention and transmissi on of STD's. 4. Depo injection given 5. Will return q 3 months for injections , sooner if needed. [id number] MD Hannah Wilson [address] Mcclendon [address] [place] [address] 1 03/21/2024 10:13:38 03/23/2024 18:35:58 Postcoital bleeding 91734424 N93.0 Will send off nuswab and order pelvic ultrasound . Pt instructed to keep track on calendar how often it occurs, the amount and any changes. Pt v/u and will follow up pending results. Pt advised to use water based lubricant with sex. [id number] [facility] [address] Mcclendon [address] [place] [address] 03/16/2024 12:01:39 03/17/2024 09:38:56 Chronic depression 475533410 F34.1 with irritabili ty /anger issues -pt is on buspar/prdaip lify -seeing psychiatri st at [facility] to discuss with psychiatri st and pt to see therapist as well-pt is off of sertraline Type 1 eliane betes mellitus 82504207 E10.9 -pt is on insulin pump per endo-pt to f/u with endo [id number] MD Hannah Wilson [address] Mcclendon [facility] [place] [address] 05/16/2024 14:58:07 05/17/2024 09:16:36 Surveillance of depot contraception done 2207362551 9104 Z30.42 1. All forms of control reviewed with patient including risks, benefits, pros and cons. 2. Patient verbalized understand ing of all forms and that abstinence is the only true form of control. 3. Condom use reviewed as well and prevention and transmissi on of STD's. 4. Depo injection given 5. Will return q 3 months for injections , sooner if needed. [id number] MD [facility] [address] [place] [address] 05/25/2024 11:22:11 05/29/2024 14:18:46 Intermittent palpitations 791648267 R00.2 possibly due to anxiety and uncontroll ed bs- educated on good hydration and getting her blood sugar better control-al so discussed about metoprolol rx for tachycardi a and treating underlying problem for tachycardi apt is feeling better with metoprolol -will continue it for now Type 1 eliane betes mellitus 48132887 E10.9 -pt is on insulin pump per endo-pt to f/u with endo [id number] MD Hannah Wilson 14 [address] [facility] [place] [address] 08/08/2024 15:16:03 08/10/2024 14:53:04 Contraception care management 633543509 Z30.9 1. All forms of control reviewed with patient including risks, benefits, pros and cons. 2. Patient verbalized understand ing of all forms and that abstinence is the only true form of control. 3. Condom use reviewed as well and prevention and transmissi on of STD's. 4. Depo injection given 5. Will return q 3 months for injections , sooner if needed. Seizure disorder 9141227 02 G40.909 Would like referral for seizure. [id number] MD Marii Mcmullenhalto (Adult Med) [address] [place] [address] 08/22/2024 13:46:56 08/28/2024 10:14:01 History of seizure 5454766509 Z86.69 witnessed by her mom- pt is on Keppra-hamida luated with EEG and CT /MRI brainpt is waiting to see neuropt to avoid energy drink Type 1 eliane betes mellitus 66766297 E10.9 -pt is on insulin pump per endo-pt to f/u with endo Vaginitis 06361862 N76.0 - pt to keep blood sugar under control [id number] Dwight Metzger MD [place] 14 OB [address] [facility] [address] Mcclendon [address] [place] [address] 11/01/2024 11:43:11 11/06/2024 13:09:10 Body mass index 25-29 - overweight 740804669 Z68.26 Discussed diet and weight loss. Discussed making healthier food choices and increasing exercise. Discussed going to a rn icu. Surveillan ce of depot contraception done 2121073742 9104 Z30.42 1. All forms of control reviewed with patient including risks, benefits, pros and cons. 2. Patient verbalized understand ing of all forms and that abstinence is the only true form of control. 3. Condom use reviewed as well and prevention and transmissi on of STD's. 4. Depo injection given 5. Will return q 3 months for injections , sooner if needed. Smoker 52566281 F17.200 smoking cessation informatio n give. pt understand s the risk factors associated with smoking including heart disease, blood clots, stroke and increase risks for cancers. Lightheadedness 47695756 8 R42 Pt encouraged to reach out to PCP as pt is on metoprolol and dose may need to be addressed. Pt advised to go to ED for severe headache, lightheade dness or sycope. Pt v/u. [id number] MD [facility] ([facility] [address]on [address] [place] [address] 11/20/2024 14:11:57 12/08/2024 16:44:44 Type 1 diabetes mellitus 23133187 E10.9 -Managemen t per endocrinol ogy-Last A1c 11.6% (04/12/24)-G oal A1c < 7%-Home blood glucose readings: n/a-DM Maintenanc eEye exam: 2024-reque st recordsFoo t exam: 04/12/24-per endoMicroa l: obtain at f/u-Denies hypo/hyper glycemia episodes.- Recheck A1c at follow-up- Continue current therapy-Re commended diabetic diet-Educa jonah to check feet daily. Gastroesop hageal reflux disease without esophagitis 319828141 K21.9 -patient reports having chronic GERD. Patient reports taking Prilosec on occasion. OPERATOR HELPER discussed risks of long-term PPI use.-OPERATOR HELPER discussed her diet with the patient-co ntinue current therapy omeprazole 20 mg prn Overactive urinary bladder 901804597 N32.81 -patient reports having symptoms of overactive bladder-pa maureen agreeable to urologist referral Palpitations 72828201 R0 0.2 -blood pressure low in clinic today-kris ent agreeable to decreasing metoprolol to 1/2tab daily-kris ent to follow up with cardiologi for further management -ER precaution s advised Cigarette smoker 7936418 7 F17.210 -Patient reports she started using tobacco at age 19. Patient vapes currently. A 50mg vape lasts 1.5 weeks. She is equivalent to 1/2 PPD.-The patient continues to use tobacco despite previous direction toquit. The patient is aware of risks of tobacco, which includes developing cancer, emphysema, and premature cardiovasc ular disease.-c are instructio ns provided Marijuana user 715296821 F12.90 -Patient reports using marijuana once weekly. Patient reports using 1-2 grams per week.-The patient continues to use marijuana despite previous direction toquit. The patient is aware of risks of tobacco, which includes developing cancer, emphysema, and premature cardiovasc ular disease. Overweight 949453178 E66 .3 OPERATOR HELPER advised patient to follow a well balanced diet and obtain regular exercise. Informatio nal handout provided. Pruritic rash 47965718 L 28.2 -rash noted on exam-patie nt agreeable to trial of hydrocorti sone cream b.i.d. for 1-2 weeks. OPERATOR HELPER discussed risks of steroid therapy including thinning of skin-derma tology referral placed [id number] Alban Raymond MD [facility] [employer] [address] MCCLENDON [address] [place] [address] 11/30/2024 14:14:20 11/30/2024 14:53:53 Smoker 23384061 F17.200 Nicotine cessation for cardiovasc ular risk reduction and overall health benefits reinforced . Declines need for pharmaceut ical interventi on. Palpitations 58060149 R0 0.2 R06.09 Z86.16 In light of palpitatio ns, obtain extended teletypesetter monitor. Self rhythm monitoring , hydration, limiting caffeine/a lcohol and palpitatio ns instructio ns provided. Due to increasing symptoms following COVID-19, obtain echocardio gram to rule out COVID-19 related mild pericardit is. Red flag symptoms in the interim reviewed. Overweight 351383424 E66 .3 Encouraged diet/exerc ise for weight management and cardiovasc ular risk reduction. Health Concerns Section Related Observation LastModified by Organization Detai ls LastModified Time None Recorded Concern Status LastModified by Organization Details LastModified Time None Recorded Advance Directives Directive N: Payers Encounter Date Sequence Insurance Name Policy Number Policy Marmolejo Covered Member ID Marmolejo Member ID Guarantor Name 08/08/2024 1 [facility] ON OR AFTER 02/06/21 (MEDICAID REPLACEMENT - HMO) R Moxey [id number] R Moxey 08/22/2024 1 [facility] ON OR AFTER 02/06/21 (MEDICAID REPLACEMENT - HMO) R Moxey [id number] R Moxey 11/01/2024 1 [facility] ON OR AFTER 02/06/21 (MEDICAID REPLACEMENT - HMO) R Moxey [id number] R Moxey 11/20/2024 1 [facility] ON OR AFTER 02/06/21 (MEDICAID REPLACEMENT - HMO) R Moxey [id number] R Moxey 11/30/2024 1 [facility] ON OR AFTER 02/06/21 (MEDICAID REPLACEMENT - HMO) Emma Soto Moxey [id number] Emma Verasey Notes Date Note Type Note Provider Name and Address Organization Details Recorded Time 4 text/html Annual GYNReported bypatient.History:no gynecologic complaints Menstrual cycle:Normal menses Urinary symptoms:No hematuria; No incontinence Vulva:No genital lesion Vagina:Normal vaginal discharge Breast:No breast pain; No breast lump; No nipple discharge Current Contraception:Satisfied with current contraception Sexual complaints:No sexual complaints; No pain during intercourse; Normal libido Menopausal Symptoms:No menopausal symptoms; Normal vaginal lubrication Psychological symptoms:No depression; No anxiety; No PMDD Preventive measures:Encourage self breast examination; Encourage regular exercise; Encourage no tobacco use; Encourage regular mammograms starting age [age] yo fe here for depo injection- first pap wnl 06/23/23- on depo, doing well with no complaints- hx depression, type 1dm Isabel Cooney, TREE TAPPING LABORER-BC Attn: Accounting,[address] [place] [address], [place], [address], [facility] 08/08/2024 15:48:03 5 text/html pt is here for hospital f/u for seizure episode , witnessed by her motherpt is taking keppra /denied any more episode of seizurespt had EEG and CT brain as wellpt has frequent low blood sugars and also high blood sugars /seeing endo for her type 1 DM pt is also started on metoprolol for palpitationspt has DM-type 1 and depression , pt is seeing endo for DM on insulin pumppt had issues with her insulin pump and had to wait for her insulin pump replaced .pt sees psychiatrist for anxiety/depression , taking meds as prescribed . Trying to get her blood sugars under control and trying to eat better per pt . Alexander [place] MD Attn: Accounting,[address], [place], [address], [facility] 08/22/2024 15:53:26 5 text/html Annual GYNReported bypatient.History:no gynecologic complaints Menstrual cycle:Normal menses Urinary symptoms:No hematuria; No incontinence Vulva:No genital lesion Vagina:Normal vaginal discharge Breast:No breast pain; No breast lump; No nipple discharge Current Contraception:Satisfied with current contraception Sexual complaints:No sexual complaints; No pain during intercourse; Normal libido Menopausal Symptoms:No menopausal symptoms; Normal vaginal lubrication Psychological symptoms:No depression; No anxiety; No PMDD Preventive measures:Encourage self breast examination; Encourage regular exercise; Encourage no tobacco use; Encourage regular mammograms starting age [age] yo fe here for depo injection- first pap wnl 06/23/23- on depo, doing well with no complaints- may consider switching to ocp after this injection, will call office- hx depression, type 1dm EVARISTO Hsu Attn: Accounting,[address], [place], [address], [facility] 11/01/2024 12:25:54 5 text/html Patient presents to the clinic to establish care. Patient was previously established with Dr. Grant for primary care.Other providers:Endocrinology-Sarah Kumar NPNeurology-Dr. CarrilloPsychiatry-Dr. Jones-Saige Anaya/Vocational Rehabilitation Specialist-Isabel NPUrologist- Dr. Perrin -Medical Hx/Surgical Hx: Depression, type 1 diabetes, tobacco use, marijuana use, tonsillectomy, adenoidectomy, anxiety, and GERD -Family hx: Both sides DiabetesMother: living-healthyFather: living-healthyMaternal Grandmother: -colon cancer, RAMaternal Grandfather: living-DMII, heart disease, hyperlipidemiaPaternal Grandmother: -brain aneurysmPaternal Grandfather: -unknown -Tobacco/Drug/Alcohol Use:Patient reports she started using tobacco at age 19. Patient vapes currently. A 50mg vape lasts 1.5 weeks. She is equivalent to 1/2 PPDPatient reports using marijuana once weekly. Patient reports using 1-2 grams per week.Patient denies alcohol use. 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, [place], [address], [facility] 12/07/2024 14:52:57 5 text/html I had the pleasure of seeing this patient as a new consultation from Ms. Melody Saucedo DNP for recommendations regarding evaluation and management of cardiac etiology palpitations. Pleasant 24-year-old with longstanding type 1 diabetes. Following bout of COVID-19 she has been noticing increasing symptoms of palpitations with no triggers. Lasting for few minutes up to few hours. No associated syncope but frequent episodes of dizziness. No chest pain or pressure. Reports exertional fatigue. Denies fever/chills. No bleeding diathesis. Cardiac diagnostics:Twelve lead EKG 11/30/2024: Sinus rhythm, no ST-T changes Alban Raymond MD Attn: Accounting,[address] [place], [address], [facility] 12/11/2024 13:58:00 OBGyn Episode No OBEpisode recorded.
--- OUTSIDE RECORDS SUMMARY | 2024-12-11 19:38 | XMS_ITS | Encounter Summary ---
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
--- OUTSIDE RECORDS SUMMARY | 2024-12-11 19:38 | XMS_ITS | Encounter Summary ---
Author Organization [facility] Address [address] [facility] [place] [address] Care Team Providers Care Electronic Game Developer Name Role Phone Heather Mathias MD Primary Care Provider + [phone] Heather Mathias MD Primary Care Provider + [phone] Encounter Details Date Type Department Care Team (Late st Contact Info) Description 05/18/2019 Telephone [facility] Pediatrics - Diabetes [address] [place] [address] [address], PAPER BAG MAKING MACHINIST-ASSOCIATE BUYER [address] [place] [id number] Social History Tobacco Use Types Packs/Day Years Used Date Smoking Tobacco: Never Smokeless Tobacco: Never Comments:Passive smoke expos ure Alcohol Use Standard Drinks/Week Comments Not Asked 0 (1 standard drink = 0.6 oz pur e alcohol) Comments No Sex and Gender Information Value Date Recorded Sex Assigned at Not on file Legal Sex Female 11:39 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 Marina, Give 21 units now with syringe. Push sugar free fluid. Recheck blood glucose and urine ketones in two hours. Change pump site now. Miscellaneous: She changed out her pump site and the site was kinked. documented in this encounter Plan of Treatment Not on file documented as of this encounter Visit Diagnoses Not on filedocumented in this encounter Additional Health Concerns Infection Onset Date Last Indicated Resolved Time COVID-19 Under Investigation 07/21/2020 07/21/2020 07/21/2020 12:45 AM BODY DIE MAKER documented as of this encounter Care Teams Electronic Game Developer Relationship Specialty Start Date End Date Heather Mathias MD [address] [place] [address] PCP - General 11/27/10 03/18/21 Heather Mathias MD [address] [place] [address] PCP - General 03/20/21 documented as of this encounter
--- OUTSIDE RECORDS SUMMARY | 2024-12-11 19:38 | XMS_ITS | Clinical Summary ---
Author Organization [facility] Address [address] 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 This disclosure is being madepursuant to the Care Everywhere program and may not contain all information available regarding this patient. Last updated 18.[facility] Allergies Active Allergy Reactions Criticality Noted Date Comments Amoxicillin Rash Medium 11/27/2010 Penicillins Urticaria,Rash Medium 04/11/2015 Medications * Be aware that medications may not be up to date on this document. Alwaysverify current medications with the patient. Blood Glucose Monitoring Suppl (ONE TOUCH ULTRA MINI) W/DEVICE KIT HOLD RX until parent requests, please. Test blood sugar 5-9 times daily. 1 Kit 1 013 Active Additional Information Patient not taking.Reported on 02/01/2021 Insulin Pen Needle (BD PEN NEEDLE KARYN U/F) 32G X 4 MM MISCIndications :Type 1 diabetes mellitus without complication (HCC) Use 1 Each as directed Use for injections 4-6 times daily. 600 Each 3 017 Active Additional Information Patient not taking.Reported on 02/01/2021 Blood Glucose Calibration (PRODIGY CONTROL SOLUTION) LOW SOLNIndications :Type 1 diabetes mellitus without complication (HCC) 1 vial by In Vitro route as directed 1 Each 3 018 Active Additional Information Patient not taking.Reported on 02/01/2021 fluticasone propionate (FLONASE) 50 MCG/ACT nasal spray Use on skin and allow to dry prior to placing pump site. 1 bottles 5 019 Active Insulin Syringe-Needle U-100 (BD INSULIN SYRINGE ULTRAFINE) 31G X 15/64 0.5 ML syringeIndicati ons:Type 1 diabetes mellitus without complication (HCC) by Injection route once daily Use to administer daily insulin 1-2 times daily injections. 100 syringe Active Additional Information Patient not taking.Reported on 02/01/2021 sertraline (ZOLOFT) 25 MG tablet Patient taking 50mg now Active MELATONIN PO Active Lancets (ONETOUCH DELICA PLUS 33G EXTRA FINE LANCET) Use to test blood sugars 5-7 times a day as directed. 200 Each 11 Active Additional Information Patient not taking.Reported on 02/01/2021 ibuprofen (MOTRIN) 400 MG tablet Take 1 tablet by mouth every 6 hours as needed for Pain 30 tablet Active Additional Information Patient taking differently:400 mg OralPRN, Pain, Reported on 02/14/2024 Continuous Blood Gluc Transmit (DEXCOM G6 TRANSMITTER) MISC Use 1 device Every 90 days 1 Each 3 Active Additional Information Patient not taking.Reported on 02/01/2021 blood glucose (Carista AppTOUCH ULTRA) test strip Use to test blood sugar 7 times per day. 200 strip 3 Active Additional Information Patient not taking.Reported on 06/12/2021 insulin lispro (HUMALOG) 100 UNIT/ML vialIndications :Type 1 diabetes mellitus without complication (HCC) USE DIRECTED IN INSULIN PUMP UP TO 150 UNITS PER DAY 5 vial 5 Active Additional Information Patient not taking.Reported on 06/12/2021 omeprazole (PRILOSEC) 20 MG capsule Active glucagon (GLUCAGEN) injection Inject 1 (one) mg into muscle as needed 1 Each 1 Active Additional Information Patient not taking.Reported on 06/12/2021 medroxyPROGESTE Gui (DEPO-PROVERA) 150 MG/ML vialIndications :Urinary tract infection without hematuria, site unspecified medroxyprogesterone 150 mg/mL intramuscular suspension ADMINISTER 1 ML IN THE MUSCLE EVERY 3 MONTHS Active albuterol HFA (Proventil; Ventolin; Proair) 108 (90 Base) MCG/ACT inhaler INHALE 2 PUFFS BY MOUTH FOUR TIMES DAILY NEEDED FOR SHORTNESS OF BREATH OR WHEEZING Active ARIPiprazole (Abilify) 15 MG tablet Take 1 (one) tablet by mouth once daily Active buPROPion XL 24hr (Wellbutrin-XL) 150 MG tablet Take 1 (one) tablet by mouth every morning Active busPIRone (Buspar) 15 MG tablet Take 1 (one) tablet by mouth 2 times daily Activ e chlorhexidine (Peridex) 0.12 % solution RINSE WITH 15 ML AFTER BREAKFAST AND AFTER DINNER TWICE DAILY Active clotrimazole (Lotrimin AF) 1 % cream APPLY TO THE AFFECTED AND SURROUNDING AREAS OF SKIN BY TOPICAL ROUTE 2 TIMES PER DAY IN THE MORNING AND EVENING Active Continuous Glucose Sensor (Dexcom G6 Sensor) [facility] [place] Active glucose (Dex4) 4 g chew tablet TAKE 4 TABLETS BY MOUTH NEEDED FOR LOW BLOOD SUGAR Active Glucagon (Gvoke HypoPen 2-Pack) 1 MG/0.2ML SOAJ INJECT 1 MG FOR SEVERE HYPOGLYCEMIA REQUIRING THE ASSISTANCE OF ANOTHER 023 Active Insulin Disposable Pump (Omnipod 5 G6 Pods, Gen 5,) [facility] [place]YA POD EVERY 3 DAYS FOR 90 DAYS EVERY Active Lantus SoloStar pen ADMINISTER 30 UNITS UNDER THE SKIN DAILY Active nicotine (Nicoderm CQ) 21 MG/24HR patch APPLY ONE PATCH ON THE SKIN DAILY Active triamcinolone acetonide (Kenalog) 0.1 % cream APPLY THIN LAYER TOPICALLY TO THE AFFECTED AREA TWICE DAILY Active ketoconazole (Nizoral) 2 % shampooIndicati ons:Tinea versicolor Apply to wet body in the shower, leave on for 5 minutes, then rinse; daily for two weeks, then once weekly. 30 days supply 120 mL 3 Active oxyBUTYnin CR 24hr (Ditropan-XL) 10 MG tabletIndicatio ns:Urinary urgency TAKE 1 TABLET BY MOUTH EVERY DAY 30 tablet 11 025 Active Active Problems Problem Noted Date Diagnosed Date Serotonin syndrome 02/03/2021 Serotonin syndrome 02/02/2021 Assessment & Plan (02/03/2021 6:35 PM CDT): Assessment: Simone Guidry is an 20 year old female with a PMH of depression and DM1 who presents after reportedly accidental ingestion of 9 pills of Sertraline 50mg (~1930 on 02/01) - thinking that it was 4 pills of Ibuprofen. Continues to have signs of serotonin toxicity with clonus, hyperreflexia, and mydriasis. Plan: - continue on general pediatrics, Dr. Hills - bc IVF due to good PO intake - q8h vitals - continue CR monitors and pulse ox - May consider PRN Ativan if concerns for continued serotonin toxicity - Continue home meds: Prilosec, oxybutynin - Insulin regimen - 1:5 carb ratio for breakfast. 1:7 carb ratio for lunch. 1:5 carb ratio for dinner. - 44u Lantus at 1:30pm - 2u for every 50 over 150 Assessment & Plan (02/02/2021 5:02 AM CDT): Assessment: Simone Guidry is an 20 year old female with a PMH of depression and DM1 who presents after reportedly accidental ingestion of 9 pills of Sertraline 50mg (~1930 on 02/01) - thinking that it was 4 pills of Ibuprofen. She has had mild tachycardia, abdominal pain, and mild diaphoresis. She has also had hyperglycemia (glucose trending downward) in the setting of her insulin pump stopping on 02/01 morning. CBC, CMP, and EKG are otherwise unremarkable. UDS + for Cannabinoids. Negative for acetaminophen, ETOH, and salicylates. Currently with hyper- reflexia, clonus, and mild tachycardia. No tremor, hyperthermia, or agitation. Discussed with poison control: Sertraline peak effect (4.5-8.5h). Sertraline half life (26h). She requires admission for concern for seratonin toxicity and observation in the setting of ingestion. Plan: - Admit to General Medicine - Dr. Stallworth - NS @ 105 mL/hr - q4h vitals - CR monitors - Pulse ox - NPO at this time - May consider PRN Ativan if concerns for continued seratonin toxicity. Pt comfortable at this time. - Continue home meds: Prilosec, oxybutynin - Per Endocrine: - 1:5 carb ratio for breakfast. 1:7 carb ratio for lunch. 1:5 carb ratio for dinner. - 44u Lantus at 1:30pm - 2u for every 50 over 150 Diabetic ketoacidosis withou t coma associated with diabetes mellitus due to underlying condition 07/23/2020 Assessment & Plan (07/24/2020 1:06 PM WORKFORCE DEVELOPMENT PROGRAM DIRECTOR): Assessment: Simone is a 20 year old female with known DM1 who presents with vomiting, abdominal pain, and Kussmaul breathing . Initial labs and hx consistent with severe DKA (Bicarb 5, Glucose 479). Recent UTI diagnosed 07/20, continuing abx therapy . FEN/GI/ENDO: - NPO - Continue IV per protocol - TF ml/hr - D10 + 20 Kacetate and 20 KPhos at 110 ml/hr - 1/2 NS + 20 Kacetate and 20 KPhos at 110 ml/hr - adjusting rates based on Q1hour BG - insulin gtt at 0.1 U/kg/hr - glucose check q1h - BMP q4 - Urine ketones qvoid - Diabetes education consult - HbA1c 10.4 - Plan to adjust off drip to insulin pump when acidosis resolves. Home pump settings: Basal rate 1.9 unit/hour Correction factor 08/27>100 Carb ratios: 1:6 from midnight to 6 AM, 1:5 from 6 AM to 1030 AM, 1:7 from 1030 AM to 4 PM, 1:5 from 4 PM to midnight ID: - afebrile - CBC - WBC 13.1, Hgb 15.6 - follow urine culture - diagnosed with UTI on 07/20 on keflex - continuing Rocephin q24 inpatient - abdominal and flank pain on exam, improving - urine GC/chlamydia, trich pending Cardio/Resp: - Vitals q2 - CR monitors - continuous pulse ox Neuro/Pain: - Tylenol 650 mg q4 PRN for pain - neuro checks q2 Access: PIV x2 Assessment & Plan (07/24/2020 1:03 PM WORKFORCE DEVELOPMENT PROGRAM DIRECTOR): Assessment: Simone is a 20 year old female with known DM1 who presents with vomiting, abdominal pain, and Kussmaul breathing . Initial labs and hx consistent with severe DKA (Bicarb 5, Glucose 479). Recent UTI diagnosed 07/20, continuing abx therapy . FEN/GI/ENDO: - NPO - Continue IV per protocol - TF ml/hr - D10 + 20 Kacetate and 20 KPhos at 110 ml/hr - 1/2 NS + 20 Kacetate and 20 KPhos at 110 ml/hr - adjusting rates based on Q1hour BG - insulin gtt at 0.1 U/kg/hr - glucose check q1h - BMP q4 - Urine ketones qvoid - Diabetes education consult - HbA1c 10.4 - Plan to adjust off drip to insulin pump when acidosis resolves. Home pump settings: Basal rate 1.9 unit/hour Correction factor 08/27>100 Carb ratios: 1:6 from midnight to 6 AM, 1:5 from 6 AM to 1030 AM, 1:7 from 1030 AM to 4 PM, 1:5 from 4 PM to midnight ID: - afebrile - CBC - WBC 13.1, Hgb 15.6 - follow urine culture - diagnosed with UTI on 07/20 on keflex - continuing Rocephin q24 inpatient - abdominal and flank pain on exam, improving - urine GC/chlamydia, trich pending Cardio/Resp: - Vitals q2 - CR monitors - continuous pulse ox Neuro/Pain: - Tylenol 650 mg q4 PRN for pain - neuro checks q2 Access: PIV x2 Assessment & Plan (07/23/2020 6:13 PM WORKFORCE DEVELOPMENT PROGRAM DIRECTOR): Assessment: Simone is a 20 year old female with known DM1 who presents with vomiting, abdominal pain, and Kussmaul breathing . Labs and hx consistent with severe DKA (Bicarb 5, Glucose 479). Recent UTI diagnosed 07/20, continuing abx therapy . Will continue to monitor and work-up abdominal pain as DKA improves, ddx includes UTI vs pyelo vs PID Plan: - admit to Endocrine, Dr. Ralph FEN/GI/ENDO: - NPO - IV per protocol - TF ml/hr - D5 1/2 NS + 20 Kacetate and 20 KPhos at 10 ml/hr - 1/2 NS + 20 Kacetate and 20 KPhos at 210 ml/hr - insulin gtt at 0.1 U/kg/hr - glucose check q1h - BMP q4 - Urine ketones qvoid - SW consult - Diabetes education consult - Nutrition consult - HbA1c in process ID: - afebrile - CBC - WBC 13.1, Hgb 15.6 - follow urine culture - diagnosed with UTI on 07/20 on keflex - continuing Rocephin q24 inpatient - abdominal and flank pain on exam - urine GC/chlamydia, trich pending Cardio/Resp: - Vitals q2 - CR monitors - continuous pulse ox Neuro/Pain: - Tylenol 650 mg q4 PRN for pain - neuro checks q2 Access: PIV x2 Diabetic ketoacidosis withou t coma associated with type 1 diabetes mellitus 05/23/2020 Assessment & Plan (03/18/2021 5:17 PM CDT): Assessment: Simone is a 20 year old female with known DM1 who presents with vomiting, abdominal pain, and Kussmaul breathing, recently left [facility] from [facility]. Labs and hx consistent with severe DKA. Initial labs found to be pH 7.10, HCO3 <5, -22.8 Base deficit with AG of 30 here. Kussmaul breathing. Started on insulin drip and 2-bag protocol in ED. Plan: - admit to Endocrine, Dr. Ralph - plan for resumption of pump using pump contract when DKA resolves FEN/GI/ENDO: - NPO - famotidine 20 mg q day - IV per protocol - TF ml/hr - D5 1/2 NS + 20 Kacetate and 20 KPhos 200 mL/hr - 1/2 NS + 20 Kacetate and 20 KPhos at 1 mL/hr - insulin gtt at 0.1 U/kg/hr - glucose check q1h - BMP q4 - Urine ketones qvoid - SW consult - Diabetes education consult - Nutrition consult - HbA1c pending ID: - afebrile Cardio/Resp: - Vitals q2 - CR monitors - continuous pulse ox Renal: - continue home oxybutynin 5 mg q day Neuro/Pain/Psych: - zoloft 50 mg q day - neuro checks q2 Access: PIV x2 Assessment & Plan (03/18/2021 5:10 AM CDT): Assessment: Simone is a 21 year old female who presents with shortness of breath and abdominal pain. Labs and hx consistent with DKA. Plan: - admit to Endocrine, Dr. Ralph FEN/GI/ENDO: - NPO - IV per protocol - TF ml/hr - D5 1/2 NS + 20 Kacetate and 20 KPhos at 1 ml/hr - 1/2 NS + 20 Kacetate and 20 KPhos at 199 ml/hr - insulin gtt at 0.1 U/kg/hr - glucose check q1h - BMP q4 - Checking for Ketones q8 hrs - Urine ketones qvoid - SW consult - Diabetes education consult - Nutrition consult ID: - afebrile - follow urine culture Cardio/Resp: - Vitals q2 - CR monitors - continuous pulse ox Neuro/Pain: - neuro checks q2 Access: PIV Assessment & Plan (05/23/2020 11:49 PM CDT): Assessment: Simone Guidry is a 20 year old female with a history of Type 1 DM presenting with DKA. She requires admission for initiation and management of an insulin gtt and 2 bag IVF. Plan: Admit to Endocrinology, Dr. Ralph - Insulin gtt with 2 bag system (2.5L/m2) - Glucose every hour - NPO - BMP q4 - Urine ketones qvoid - Vitals q2 - Neurochecks q2 - Nutrition consult - SW consult Pilonidal cyst without abscess 01/23/2020 Chronic adhesive otitis media 11/13/2013 Retained foreign body of middle ear 11/02/2013 Overview (06/16/2015): Allergic rhinitis 04/22/2012 Snoring 04/22/2012 Diabetes mellitus type I 11/27/2010 Overview (07/24/2013): Diagnosed 11-27-2010 Assessment & Plan (12/20/2020 9:41 AM CDT): 1) need to contact [facility] for upgrade to x2 with control iq 2) dose for carbs 3) call as needed to review glucose levels Assessment & Plan (08/30/2020 8:52 AM WORKFORCE DEVELOPMENT PROGRAM DIRECTOR): 1) no changes at this time 2) must check blood sugar 4 times daily 3) must dose for all carbohydrates eaten 4) return in 3 months for Britt Assessment & Plan (12/13/2019 2:55 PM CDT): 1) no changes at this time 2) check blood sugar at least 4 times daily 3) call me with blood sugars on Wednesday 4) return in 3 months Assessment & Plan (08/15/2019 11:06 AM WORKFORCE DEVELOPMENT PROGRAM DIRECTOR): 1) must resume bolusing before you eat 2) counting carbs accurately 3) programming in blood sugar with boluses 4) return in 4 months for Britt Assessment & Plan (04/08/2018 1:19 PM CDT): 1) should try to get dexcom G6 2) no other changes today 3) call as needed to review blood sugars 4) return in june Assessment & Plan (01/07/2018 1:09 PM CDT): 1) decrease midnight basal to 1.9 2) keep up the great work 3) call as needed to review blood sugars 4) return in 3 months for Britt, [address] Briggs Assessment & Plan (01/28/2017 11:55 AM CDT): 1) increase carb ratio at 6 am to 1:5 2) call as needed to review blood sugars 3) return in April for Dr. Briggs Assessment & Plan (10/13/2016 1:17 PM WORKFORCE DEVELOPMENT PROGRAM DIRECTOR): 1) increase daytime basal to 1.8 units per hour 2) increase target to 100 3) keep up the good work 4) call as needed 5) Return in 3 months for Britt, [address] Briggs Assessment & Plan (01/20/2016 2:26 PM CDT): 1) Decrease dinner to 1:5 2) rotate injections to legs 3) start cardio for 15-20 minutes daily 4) call as needed to review blood sugars 5) return in 3 months for Britt, [address] Briggs Assessment & Plan (04/12/2015 1:16 PM CDT): 1) increase Lantus to 38 units 2) avoid left side of stomach for injections 3) call as needed to review blood sugars 4) keep up the good work 5) return for Dr. Briggs Assessment & Shabbir (01/04/2015 2:45 PM CDT): 1) Increase lantus to 37 units 2) increase lunch and dinner to 1:5 3) attend next pump class 4) call as needed to review blood sugars 5) any multivitamin is fine 6) return in 3 months for britt, [address] Briggs Assessment & Plan (08/24/2014 1:15 PM WORKFORCE DEVELOPMENT PROGRAM DIRECTOR): 1) increase breakfast to 1 per 4 2) increase Lantus to 35 3) call in blood sugars in 1 week to [phone] option 4 4) return in 3 months for britt, [address] Briggs Assessment & Plan (02/19/2014 1:49 PM CDT): 1) no changes 2) keep up the good work 3) will move forward with pump therapy 4) return in 3 months for Britt Gregorio Assessment & Plan (11/06/2013 1:34 PM CDT): 1) increase Lantus to 26 units 2) increase breakfast to 1:5 3) call in blood sugars in one week to [phone] option 4 4) return in 3-4 months for Britt and [address] Chester Kramer & Plan (07/24/2013 1:12 PM WORKFORCE DEVELOPMENT PROGRAM DIRECTOR): 1) increase Lantus to 23 units 2) increase breakfast to 1:6 3) increase correction to 1 per 50 over 150 4) call in blood sugars in 1 week to [phone] option 4 5) return in 3-4 months for Britt Retained myringotomy tube Encounters Date Type Department Care Team Description 09/25/2024 Refill [facility] - Urology [address] [place] [address] Dana Kendrick DO Refill Request from Last 3 Months Immunizations Immunization Administration Dates Next Due INFLUENZA VACCINE 05/07/2011 INFLUENZA VACCINE, QUADR. (F LUZONE; FLULAVAL; FLUARIX; AFLURIA QUADRIVALENT; 6MO+), 0.5 ML (IIV4) 08/15/2019 Family History Medical History Relation Name Comments Rheumatological Disease Maternal Grandmother RA Anxiety Disorder Mother Anesthesia Reaction Neg Hx Bleeding Disorders Neg Hx Childhood Hearing Disorder Neg Hx Relation Name Status Comments Maternal Grandmother Mother Social History Tobacco Use Types Packs/Day Years Used Date Smoking Tobacco: Never Smokeless Tobacco: Never Tobacco Cessation:Counseling Given: Not Answered Comments:pt vapes Alcohol Use Standard Drinks/Week Comments Not Currently 0 (1 standard drink = 0.6 oz pur e alcohol) rarely AUDIT-C Answer Date Recorded Q1: How often do you have a drink containing alc ohol? 2-4 times a month 07/23/2020 Average Number of Drinks Not on file 020 Frequency of Binge Drinking Not on file 07/09 Comments No Sex and Gender Information Value Date Recorded Sex Assigned at Not on file Legal Sex Female 11:39 AM WORKFORCE DEVELOPMENT PROGRAM DIRECTOR Gender Identity Not on file Sexual Orientation Not on file Last Filed Vital Signs Vital Sign Reading Time Taken Comments Blood Pressure 110/65 06/12/2021 1:04 PM CDT Pulse 88 06/12/2021 1:04 PM CDT Temperature 37.3 C (99.1 F) 03/19/2021 7:52 AM CDT Respiratory Rate 24 03/19/2021 7:52 AM CDT Oxygen Saturation 97% 06/12/2021 1:04 PM CDT Inhaled Oxygen Concentration - - Weight 59 kg (130 lb) 06/12/2021 1:04 PM CDT Height 154.9 cm (5' 1 ) 06/12/2021 1:04 PM CDT Body Mass Index 24.56 06/12/2021 1:04 PM CDT Plan of Treatment Health Maintenance Due Date Last Done Comments PAP SMEAR 2002 DIABETES RETINOPATHY SCREENING 11/02/2013 HIV SCREENING 2017 HPV VACCINE (1 - 3-dose series) 2017 MENINGOCOCCAL (Group B) VACCINE SHARED DECISION-MAKING (1 of 2 - Standard) 2018 HEPATITIS C SCREENING 02/24/2020 DIABETES-FOOT EXAM WITH MONOFILAMENT 02/29/2020 DTAP/TDAP/TD VACCINES (1 - Tdap) 2021 HEPATITIS B VACCINE (1 of 3 - 19+ 3-dose series) 2021 PNEUMOCOCCAL VACCINE (1 of 2 - PCV) 2021 CHLAMYDIA/GONORRHEA SCREENING 07/23/2021 07/23/2020, 05/05/2020 DIABETES-HGB A1C 03/22/2024 12/21/2023, 01/2024, 07/02/2023, Additional history exists COVID-19 VACCINE ( - season) 2024 DEPRESSION SCREENING 08/09/2024 DIABETES - URINE PROTEIN SCREENING 08/09/2024 04/09/2020, 04/07/2018, 04/15/2017, Additional history exists DIABETES-SERUM CREATININE 12/12/20242023, 12/13/2023, 12/13/2023, Additional history exists INFLUENZA VACCINE (Season Ended) 2025 08/15/2019, 05/24/2015, 05/31/2013, Additional history exists ZOSTER VACCINE (1 of 2) 02/29/2052 HIB VACCINE Aged Out No longer eligi ble based on patient's age to complete this topic MENINGOCOCCAL GROUPS A/C/Y/W VACCINE Aged Out No longer eligible based on patient's age to complete this topic Medical Devices Implanted Type Area Pull Over Device Identifier Shelf Expiration Date Model / Serial / Lot Log [id number] - Tympanostomy Tubes Dave - 1 - Tube Vent Triune Silicon 1.35mm X 5.0mm Implanted:Qty: 2 on 07/11/2012 at [facility] Bilateral : [employer] 10/07/2016 [id number] / / [id number] Tube Vent Paprella W/Silicon Type 1 Tab Implanted:Qty: 2 on 11/13/2013 by Eve Berger MD at [facility] Bilateral : [employer] 09/08/2017 [id number] / / [id number] Procedures Procedure Name Priority Date/Time Associated Diagnosis Comments BASIC METABOLIC PANEL (CALCIUM TOTAL) Timed 03/19/2021 12:26 AM CDT HEMOGLOBIN A1C Routine 03/18/2021 9:08 PM CDT CHLAMYDIA + GC AMPLIFIED PROBE STAT 07/23/2020 1:14 PM WORKFORCE DEVELOPMENT PROGRAM DIRECTOR MICROALB/CREAT RATIO URINE RANDOM PANEL Routine 04/09/2020 11:23 AM CDT Type 1 diabetes mellitus without complication from Last 3 Months or Most Recently Relevant to Health Maintenance Results * (ABNORMAL) BASIC METABOLIC PANEL (CALCIUM TOTAL) (03/19/2021 12:26 AM CDT) BUN 5(L) 7 - 26 mg/dL 03/19/2021 1:17 AM [facility] Creatinine 0.52(L) 0.56 - 0.96 mg/dL 03/19/2021 1:17 AM [facility] Sodium 137 136 - 145 mmol/L 03/19/2021 1:17 AM [facility] Potassium 2.7(LL) 3.5 - 4.5 mmol/L 03/19/2021 1:17 AM [facility] Chloride 114(H) 98 - 107 mmol/L 03/19/2021 1:17 AM [facility] CO2 17(L) 22 - 29 mmol/L 03/19/2021 1:17 AM [facility] Glucose 172(H) 70 - 115 mg/dL 03/19/2021 1:17 AM [facility] Calcium 8.4 8.4 - 10.2 mg/dL 03/19/2021 1:17 AM [facility] Anion Gap 9 8 - 18 03/19/2021 1:17 AM [facility] BUN/Creatinine Ratio 10 7 - 23 03/19/2021 1:17 [address] [facility] Osmolality Calculated 285 270 - 300 mOsm/kg 03/19/2021 1:17 AM [facility] eGFR by CKD-EPI >90 >=90 mL/min/1.7 3 m2 03/19/2021 1:17 AM [facility] Blood BLOOD SPECIMEN / Unknown Lab Venipuncture / Unknown 03/19/2021 12:26 AM CDT 03/19/2021 12:39 AM CDT us Nicole Ralph DO LAB - CHEMISTRY ORDERABLES Final Result [facility] [address] [place] [address], [facility] [phone] * (ABNORMAL) HEMOGLOBIN A1C (03/18/2021 9:08 PM CDT) Hemoglobin A1c 10.1(H) 4.4 - 6.3 % 03/19/2021 9:35 AM [facility] Estimated Average Glucose 243 mg/dL 03/19/2021 9:35 AM [facility] Comment: HbA1c Interpretation: Treatment target values recommended by ADA and other clinical organizations should be used to evaluate metabolic control in patients. Treatment Target Values: Normal : < 5.7% Pre-diabetes: 5.7-6.4% Diabetes: Equal to or greater than 6.5% Reference: [place] [employer] Standards of Care in Diabetes -2014 In patients 70 years and older consider HbA1c target range of 7.0-7.5% Reference: Diabetes Mellitus in Older People: Position Statement on behalf of the International Association of Gerontology and Geriatrics (IAGG), the Diabetes Working Republican for Older People (EDWPOP), and the International Task Force of Experts in Diabetes. Clayton Kerns et al. J [employer] [employer] Association. 2012 Test results diagnostic of diabetes should be repeated for confirmation. The Sebia Capillary 2 assay for the measurement of HbA1c is a National Glycohemoglobin Standardization Program (NGSP)certified method. Blood BLOOD SPECIMEN / Unknown Lab Venipuncture / Unknown 03/18/2021 9:08 PM CDT 03/18/2021 9:17 PM CDT us Nicole Ralph DO LAB - CHEMISTRY ORDERABLES Final Result [facility] [address] [place] [address], [place] [phone] * CHLAMYDIA + GC AMPLIFIED PROBE (STL) (07/23/2020 1:14 PM WORKFORCE DEVELOPMENT PROGRAM DIRECTOR) Chlamydia Amplified Probe Negative Negative 07/24/2020 1:44 PM WORKFORCE DEVELOPMENT PROGRAM DIRECTOR [facility] GC Amplified Probe Negative Negative 07/24/2020 1:44 PM WORKFORCE DEVELOPMENT PROGRAM DIRECTOR [facility] Microbiology URINE / Unknown Collection / Unknown 07/23/2020 1:14 PM WORKFORCE DEVELOPMENT PROGRAM DIRECTOR 07/23/2020 1:16 PM WORKFORCE DEVELOPMENT PROGRAM DIRECTOR Narrative [facility] - 07/24/2020 1:44 PM WORKFORCE DEVELOPMENT PROGRAM DIRECTOR Results based on detection/no detection of ribosomal RNA by amplified method. us Kodak Sweeney MD LAB - MICROBIOLOGY ORDERABLES Final Result Performing Organization Address [facility] Co de Phone Number [facility] [address] [place] [address], [facility] [phone] * (ABNORMAL) MICROALB/CREAT RATIO URINE RANDOM PANEL (04/09/2020 11:23 AM CDT) Creatinine Urine 38.46 mg/dL 04/09/20 20 12:27 PM CDT [facility] Microalbumin Urine 1.3 <1.7 mg/dL 04/09/2020 12:27 PM CDT [facility] Microalbumin/Crea tinine Ratio 34(H) <30 mg/g 04/09/2020 12:27 PM CDT [facility] Urine URINE SPECIMEN OBTAINED BY CLEAN CATCH PROCEDURE / Unknown Collection / Unknown 04/09/2020 11:23 AM CDT 04/09/2020 11:51 AM CDT Chikis Briggs MD LAB - URINE CHEMISTRY ORDERABLE S Final Result [id number] [place] [address] from Last 3 Months or Most Recently Relevant to Health Maintenance Insurance MEDICAID - OUT OF STATE AET [facility] A[facility]NA AETNA MEDICAID - OUT OF STATE [facility] A[facility]NA Advance Directives * Full Code (Latest Code Status on File) Date Activated Date Inactivated Comments 03/18/2021 5:00 AM 03/19/2021 6:00 PM * Full Code Date Activated Date Inactivated Comments 02/02/2021 5:00 AM 02/04/2021 3:42 PM * Full Code Date Activated Date Inactivated Comments 07/23/2020 4:12 PM 07/25/2020 11:15 AM * Full Code Date Activated Date Inactivated Comments 05/24/2020 12:40 AM 05/24/2020 9:31 PM Care Teams Firefighter Marine Relationship Specialty Start Date End Date Heather Mathias MD [address] [place] [address] [facility] - General 03/20/21
--- OUTSIDE RECORDS SUMMARY | 2024-12-11 19:38 | XMS_ITS | Encounter Summary ---
Author Organization [facility] [employer] Address [address] [place] [address] Care Team Providers Care District Manager Name Role Phone Heather Mathias MD Primary Care Provider Encounter Details Date Type Department Care Team (Late st Contact Info) Description 04/30/2021 Telephone [facility] Pediatrics - Diabetes Mgmt [address] [place] [id number] Nicole Ralph, DO [address] [place] [id number] Social History Tobacco Use Types Packs/Day Years Used Date Smoking Tobacco: Never Smokeless Tobacco: Never Comments:pt vapes Alcohol Use Standard Drinks/Week Comments [...] on file 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 Answer Date of Assessment Author No 03/18/2021 10:23 AM Alfredo Worrell RN * Is person blind or have serious difficulty seeing? Answer Date of Assessment Author No 03/18/2021 10:23 AM Alfredo Worrell RN * Does person have serious difficulty walking/climbing stairs? Answer Date of Assessment Author No 03/18/2021 10:23 AM MÓNICAT Alfredo Feliz RN * Does person have difficulty dressing/bathing? Answer Date of Assessment Author No 03/18/2021 10:23 AM MÓNICAT Alfredo Feliz RN * Does person have difficulty doing errands alone? Answer Date of Assessment Author No 03/18/2021 10:23 AM ÓMNICAT Alfredo Feliz RN documented as of this encounter Mental Status * Does person have difficulty concentrating/remembering/making decisions? Answer Entry Date Author No 03/18/2021 10:23 AM MÓNICAT Alfredo Feliz RN documented in this encounter Miscellaneous Notes * Telephone Encounter - Nicole Ralph DO - 04/30/2021 5:40 PM CDT called through the after hours exchange. Followed by endocrine for type 1 diabetes with recurrent DKA Meds: insulin by pump Reason for Call: Calling to report my numbers Information provided: See earlier today note by Maryann Sheth. 's glucose is now 246 with large ketones. She still feels like she has a cold but otherwise well. She has changed her pump site. Assessment/Plan: Give 7 units by shot now Temp basal of 150% for 2 hours Repeat ketones and sugar in 2 hours. If moderate ketones, continue temp basal another 2 hours and give a correction through the pump. If large ketones, call back. Addendum from 1945: called back with update. Glucose 131 but still large ketones. Feeling well. I recommended to eat and dose before eating. Recheck in 2 hours. She is about to eat spaghetti. * Telephone Encounter - Maryann Sheth RN - 04/30/2021 4:42 PM CDT Diabetes Sick Call Patient: Emma Guidry Date: 04/30/2021 Current Blood Glucose: 198 Current Ketone result: large Last insulin given: Humalog: Dose 11.45 units Time 1511 Symptoms: congested - COVID + as of yesterday Recent Illness: see above Plan: Push sugar free fluid. Recheck blood glucose and urine ketones in one hour. Call Dr. Ralph through exchange at 1715 to recheck urine ketones and bg Call 911 if symptoms develop or if vomiting occurs Miscellaneous: Mom called reporting large ketones for over 24 hours. Mom states fátima is in the hospital and is about to get intubated due to covid. She was unable to focus on conversation. She states she is leaving the home right now ( will be alone). 's phone number is [phone]. Changed pump site at 1511 with last bolus. I spoke with Dr. Ralph - rubia for to call through exchange at 1715 for updated recommendations. I spoke with and she agrees with plan. Denies any immediate concerns. documented in this encounter Plan of Treatment Not on file documented as of this encounter Visit Diagnoses Not on filedocumented in this encounter Care Teams District Manager Relationship Specialty Start Date End Date Heather Mathias MD [address] [place] [address] PCP - General 03/20/21 documented as of this encounter
--- OUTSIDE RECORDS SUMMARY | 2024-12-11 19:38 | XMS_ITS | Encounter Summary ---
Author Organization [facility] Address [address] [place] [address] Care Team Providers Care Processor Grain Name Role Phone Heather Mathias MD Primary Care Provider + [phone] Heather Mathias MD Primary Care Provider + [phone] Reason for Visit * Reason Comments Refill Request Encounter Details Date Type Department Care Team (Late st Contact Info) Description 10/10/2018 Refill [facility] Pediatrics - Diabetes [id number] [place] [address] [address], JUNIOR FINANCIAL ANALYST-PATIENT CARRIER [address] [place] [id number] Refill Request Social History Tobacco Use Types Packs/Day Years Used Date Smoking Tobacco: Never Smokeless Tobacco: Never Comments:Passive smoke expos ure Alcohol Use Standard Drinks/Week Comments Not Asked 0 (1 standard drink = 0.6 oz pur e alcohol) Comments No Sex and Gender Information Value Date Recorded Sex Assigned at Not on file 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 Noted that strips recently sent to [facility]. Called and left vm with father to clarify which rx they would like to receive strips from. ENGINE MECHANIC documented in this encounter Plan of Treatment Not on file documented as of this encounter Visit Diagnoses Diagnosis Type 1 diabetes mellitus without complication (HCC)- Primary Type I (juvenile type) diabetes mellitus without mention of complication, not stated as uncontrolled documented in this encounter Additional Health Concerns Infection Onset Date Last Indicated Resolved Time COVID-19 Under Investigation 07/21/2020 07/21/2020 07/21/2020 12:45 AM AUTO ENGINE MECHANIC documented as of this encounter Care Teams Processor Grain Relationship Specialty Start Date End Date Heather Mathias MD [address] [place] [address] PCP - General 11/27/10 03/18/21 Heather Mathias MD [address] [place] [address] PCP - General 03/20/21 documented as of this encounter
--- OUTSIDE RECORDS SUMMARY | 2024-12-11 19:38 | XMS_ITS | Encounter Summary ---
Author Organization [facility] Address [address] [place] [address] Care Team Providers Care Elevator Erector Helper Name Role Phone Heather Mathias MD Primary Care Provider + [phone] Heather Mathias MD Primary Care Provider + [phone] Encounter Details Date Type Department Care Team (Late st Contact Info) Description 07/25/2020 Telephone [facility] Pediatrics - Endocrinology [address] [place] [address] [address], RIVET TAPPING MACHINE OPERATOR-FOOD SERVICE KITCHEN SUPERVISOR [address] [place] [phone] Social History Tobacco Use Types Packs/Day Years [...] on file 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 Answer Date of Assessment Author No 07/23/2020 5:27 PM RACKER OCTAVE BOARD Alfredo Feliz RN * Is person blind or have serious difficulty seeing? Answer Date of Assessment Author No 07/23/2020 5:27 PM RACKER OCTAVE BOARD Alfredo Feliz RN * Does person have serious difficulty walking/climbing stairs? Answer Date of Assessment Author No 07/23/2020 5:27 PM Alfredo Jurado RN * Does person have difficulty dressing/bathing? Answer Date of Assessment Author No 07/23/2020 5:27 PM Alfredo Jurado RN * Does person have difficulty doing errands alone? Answer Date of Assessment Author No 07/23/2020 5:27 PM RACKER OCTAVE BOARD Alfredo Feliz RN documented as of this encounter Mental Status * Does person have difficulty concentrating/remembering/making decisions? Answer Entry Date Author No 07/23/2020 5:27 PM Alfredo Jurado RN documented in this encounter Miscellaneous Notes * Telephone Encounter - Maryann Guy RN - 07/25/2020 11:29 AM RACKER OCTAVE BOARD I followed up with [facility] to check on dexcom status. Per [employer], prescriptions have been sent to [facility] per insurance rep request ([phone]). I called mom to update her on status. She states she will call [facility] to follow up. Mom also reports she needs work/school excuse letters for dates she was seen at the hospital. She states she will call back with fax numbers for each so we can send them. ER OCTAVE BOARD documented in this encounter Plan of Treatment Not on file documented as of this encounter Visit Diagnoses Not on filedocumented in this encounter Care Teams Elevator Erector Helper Relationship Specialty Start Date End Date Heather Mathias MD [address] [place] [address] PCP - General 11/27/10 03/18/21 Heather Mathias MD [address] [place] [address] PCP - General 03/20/21 documented as of this encounter
--- OUTSIDE RECORDS SUMMARY | 2024-12-11 19:38 | XMS_ITS | Referral Summary ---
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 Adolescents. Pediatrics 2011;128:S213 2. NCEP Expert Panel. Circulation 2004;110:227 Current Interpretive Data was last revised on 2018. Triglycerides 33 <=149 mg/dL KARL SINGH ([place]) Comment: Interpretive Data Ages < or = 9 years Acceptable: <75 mg/dL Borderline high: 75-99 mg/dL High: >or= 100 mg/dL Ages 10 to 20 years Acceptable: <90 mg/dL Borderline high: 90-129 mg/dL High: >or= 130 mg/dL Ages > or = 20 years Desirable: <150 mg/dL Borderline high: 150-199 mg/dL High: 200-499 mg/dL Very high: >or= 499 mg/dL Literature References: 1. Expert Panel on Integrated Guidelines for Cardiovascular Health and Risk Reduction in Children and Adolescents. Pediatrics 2011;128:S213 2. NCEP Expert Panel. Circulation 2004;110:227 Current Interpretive Data was last revised on 2018. HDL 60 >=40 mg/dL KARL Dawn ([place]) Comment: Interpretive Data Ages < or = 19 years Acceptable: >45 mg/dL Borderline low: 40-45 mg/dL Low: <40 mg/dL Ages > or = 20 years Desirable: >or= 60 mg/dL Low: <40 mg/dL Literature References: 1. Expert Panel on Integrated Guidelines for Cardiovascular Health and Risk Reduction in Children and Adolescents. Pediatrics 2011;128:S213 2. NCEP Expert Panel. Circulation 2004;110:227 Current Interpretive Data was last revised on 2018. LDL, calculated 40 <=129 mg/dL K[facility]L SING[facility] ([place]) Comment: Interpretive Data Ages < or = 19 years Acceptable: <110 mg/dL Borderline high: 110-129 mg/dL High: >or= 130 mg/dL Ages > or = 20 years Optimal: <100 mg/dL Near optimal: 100-129 mg/dL Borderline high: 130-159 mg/dL High: >160 mg/dL Literature References: 1. Expert Panel on Integrated Guidelines for Cardiovascular Health and Risk Reduction in Children and Adolescents. Pediatrics 2011;128:S213 2. NCEP Expert Panel. Circulation 2004;110:227 Current Interpretive Data was last revised on 2018. Non-HDL Cholesterol 47 mg/dL KARL SINGH ([place]) Comment: Interpretive Data Ages < or = 19 years Acceptable: <120 mg/dL Borderline high: 120-144 mg/dL High: >145 mg/dL Ages > or = 20 years When triglycerides are >200 mg/dL, Non-HDL cholesterol is a secondary target of therapy with treatment goals that are 30 mg/dL greater than the LDL cholesterol target. Literature References: 1. Expert Panel on Integrated Guidelines for Cardiovascular Health and Risk Reduction in Children and Adolescents. Pediatrics 2011;128:S213 2. NCEP Expert Panel. Circulation 2004;110:227 Current Interpretive Data was last revised on 2018. Chol/HDL ratio 2 CANDICE SINGH ([place]) Blood 09/17/2023 1:55 PM DIETETIC ASSISTANT 09/17/2023 3:55 PM DIETETIC ASSISTANT Narrative KARL SINGH ([place]) - 09/17/2023 4:27 PM DIETETIC ASSISTANT These lab test should be done fasting. This means do not eat or drink for at least 12 hours prior to getting your blood drawn. us Dilma Miller NP LAB BLOOD ORDERABLES Final Resu lt KARL SINGH ([place]) 1 [facility] Department [place] [address] * N. gonorrhoeae/C. trachomatis Amplification Urine (01/23/2021 11:10 AM CDT) C. trachomatis Not detected Not detected KARL ASHTON N. gonorrhoeae Not detected Not detected KARL ASHTON Comment: Testing performed by the [facility]. This assay detects Chlamydia trachomatis and Neisseria gonorrhoeae by nucleic acid amplification testing (NAAT). This test is approved by the [place] Food and Drug Administration and the performance characteristics have been verified by the laboratory. The performance characteristics of this test have not been evaluated in women or individuals less than 16 years of age. Urine (None) 01/23/2021 11:1 0 AM CDT 01/23/2021 4:03 PM CDT Heather Mathias MD LAB MICROBIOLOGY - GENERAL O RDERABLES Final Result Performing Organization Address City/State/ZIP Co dc Phone Number KARL [phone] [place] [address] from Last 3 Months or Most Recently Relevant to Health Maintenance Insurance [facility] [employer] OPEN ACCESS Advance Directives For more information, please contact: [phone] * Full Code (Latest Code Status on File) Date Activated Date Inactivated Comments 08/01/2024 6:01 AM 08/04/2024 6:29 PM Care Teams Baker Chef Relationship Specialty Start Date End Date Alexander Rankin MD [address] [place] [address] PCP - General 06/16/21
--- OUTSIDE RECORDS SUMMARY | 2024-12-11 19:38 | XMS_ITS | Clinical Summary ---
Author Organization [facility] Address [address] [place] [address] Phone Care Team Providers Care Director Of Strategic Initiatives Name Role Phone Alexander Rankin MD Primary Care Provider [phone] Lele Carrillo MD Unavailable [phone] Allergies Active Allergy Reactions Criticality Noted Date Comments Amoxicillin Rash Low 03/16/2021 Penicillins Hives 10/30/2020 Medications medroxyPROGEST ERone (DEPO-PROVERA) 150 MG/ML Suspension 1 mL by Intramuscular route See Admin Instructions. Inject 1 mL every 3 months by intramuscular route 1 Active HumaLOG 100 UNIT/ML Solution 100 Units. INJ SC In Insulin Pump. MDD 150UNI 1 Active Glucose Blood (OneTouch Ultra) Strip Use to test blood sugar 7 times per day 1 Active Continuous Blood Gluc Transmit (Dexcom G6 Transmitter) Misc CHANGE TRANSMITTER EVERY 90 DAYS DIRECTED 1 Active Ketostix Strip 1 Active Acetone, Urine, Test Strip by Does not apply route. 1 Active ibuprofen (MOTRIN) 400 MG Tablet Take 400 mg by mouth every 8 hours as needed. Active Insulin Syringe-Needle U-100 (TRUEplus Insulin Syringe) 31G X 5/16 0.5 ML Misc by Does not apply route. Use for injections 1 to 2 times daily Active busPIRone (BUSPAR) 15 MG TabletIndicati ons:Anxiety Disorder,Major Depressive Disorder 15 mg 2 times daily. Indications: Anxiety Disorder, Major Depressive Disorder 2 Active Continuous Blood Gluc Sensor (Dexcom G6 Sensor) Misc CHANGE SENSOR EVERY 10 DAYS 2 Active Insulin Disposable Pump (Omnipod DASH Pods, Gen 4,) Misc CHANGE PODS EVERY 3 DAYS 2 Active metoprolol Succinate (TOPROL-XL) 25 MG TABLET SR 24 HR Take 1 Tablet by mouth daily. 30 Tablet 4 Active oxybutynin (DITROPAN-XL) 10 MG TABLET SR 24 HR Take 10 mg by mouth daily. Active levETIRAcetam (KEPPRA) 500 MG Tablet Take 500 mg by mouth 2 times daily. Active ARIPiprazole (ABILIFY) 15 MG Tablet Take 1 Tablet by mouth daily. 3 Active Active Problems Problem Noted Date Diagnosed Date Colitis 10/16/2024 Diabetic ketoacidosis withou t coma associated with type 1 diabetes mellitus 10/15/2024 ODILIA (acute kidney injury) 12/13/2023 Diabetic ketoacidosis associ ated with type 1 diabetes mellitus 12/13/2023 Depression 12/13/2023 Encounters Date Type Department Care Team Description 11/01/2024 11:51 PM CDT - 11/02/2024 2:05 AM CDT Emergency [facility] Emergency [address] [place] [address] Kodak Mosley MD Hypokalemia Discharge Disposition: Discharged to home or Selfcare 11/01/2024 Travel 10/16/2024 [facility] [address] [place] [address] Chante Xavier MD 10/15/2024 12:07 PM CDT - 10/16/2024 11:31 AM CDT Hospital Encounter [facility] Medical/Surgical Intensive Care [address] [place] [address] Ying Carter MD Patel, Satyen V, MD Dianati, Behfar, MD Diabetic ketoacidosis without coma associated with type 1 diabetes mellitus (HCC) Discharge Disposition: Discharged to home or Selfcare 10/15/2024 Travel from Last 3 Months Immunizations Immunization Administration Dates Next Due TDAP Vaccine 01/17/2022 Family History Medical History Relation Name Comments No Known Problems Father Lung Cancer Maternal Grandmother No Known Problems Mother Relation Name Status Comments Father Alive Maternal Grandmother Mother Alive Social History Tobacco Use Types Packs/Day Years Used Date Smoking Tobacco: Former Smokeless Tobacco: Never Tobacco Cessation:Counseling Given: Not Answered Alcohol Use Standard Drinks/Week Comments Yes 0 (1 standard drink = 0.6 oz pur e alcohol) occasional C Utilities Answer Date Recorded In the past 12 months has th e electric, gas, oil, or water ulike threatened to shut off services in your home? No 10/15/2024 Social Connection and Isolation Panel [NHANES] A nswer Date Recorded In a typical week, how many times do you talk on the phone with family, friends, or neighbors? Patient declined 10/15/2024 How often do you get togethe r with friends or relatives? Patient declined 10/15/2024 How often do you attend latter-day or mandaen serv ices? Patient declined 10/15/2024 Do you belong to any clubs o r organizations such as latter-day groups, unions, fraternal or athletic groups, or school groups? Patient declined 10/15/2024 How often do you attend meet ings of the clubs or organizations you belong to? Patient declined 10/15/2024 Are you , , di vorced, , never , or living with a partner? Patient declined 10/15/2024 AUDIT-C Answer Date Recorded Q1: How often do you have a drink containing alc ohol? Monthly or less 10/15/2024 Q2: How many drinks containi ng alcohol do you have on a typical day when you are drinking? 1 or 2 10/15/2024 Q3: How often do you have si x or more drinks on one occasion? Never 10/15/2024 Overall Financial Resource Strain (CARDIA) Answe r Date Recorded How hard is it for you to pa y for the very basics like food, housing, medical care, and heating? Patient declined 10/15/2024 [facility] - Occupational Stress Questionnaire Answer Date Recorded Do you feel stress - tense, restless, nervous, or anxious, or unable to sleep at night because your mind is troubled all the time - these days? Patient declined 10/15/2024 Exercise Vital Sign Answer Date Recorde d On average, how many days pe r week do you engage in moderate to strenuous exercise (like a brisk walk)? Patient declined On average, how many minutes do you engage in exercise at this level? Patient declined 10/15/2024 Hunger Vital Sign Answer Date Recorded Within the past 12 months, y ou worried that your food would run out before you got the money to buy more. Never true 10/16/19 25 Within the past 12 months, t he food you bought just didn't last and you didn't have money to get more. Never true 10/15/2024 PRAPARE - Transportation Answer Date Re corded In the past 12 months, has l ack of transportation kept you from medical appointments or from getting medications? No 04/2025 In the past 12 months, has l ack of transportation kept you from meetings, work, or from getting things needed for daily living? No 10/15/2024 Housing Stability Vital Sign Answer Marcos e Recorded In the last 12 months, was t here a time when you were not able to pay the mortgage or rent on time? No 12/13/2023 In the last 12 months, how many places have you lived? 1 12/13/2023 In the last 12 months, was t here a time when you did not have a steady place to sleep or slept in a long-term (including now)? No 12/13/2023 Housing Stability Vital Sign Answer Marcos e Recorded In the last 12 months, was t here a time when you were not able to pay the mortgage or rent on time? No 10/15/2024 In the past 12 months, how m any times have you moved where you were living? 0 10/15/2024 At any time in the past 12 m [facility], were you homeless or living in a long-term (including now)? No 10/15/2024 Sexually Active Control Partners Comments Yes None Male Comments No Sex and Gender Information Value Date Recorded Sex Assigned at Female 11/04/2023 2:43 PM CDT Legal Sex Female 10:55 PM CDT Gender Identity Female 11/04/2023 2:43 PM CDT Sexual Orientation Not on file Last Filed Vital Signs Vital Sign Reading Time Taken Comments Blood Pressure 109/63 11/02/2024 1:45 AM CDT Pulse 57 11/02/2024 1:45 AM CDT Temperature 37.2 C (99 F) 11/02/2024 12:03 AM CDT Respiratory Rate 18 11/02/2024 1:45 AM CDT Oxygen Saturation 98% 11/02/2024 1:45 AM CDT Inhaled Oxygen Concentration - - Weight 63.4 kg (139 lb 12.4 oz) 025 12:03 AM CDT Height 154.9 cm (5' 1 ) 11/02/2024 12:0 3 AM CDT Body Mass Index 26.41 11/02/2024 12:03 AM CDT Plan of Treatment Upcoming Encounters Date Type Department Care Team (Late st Contact Info) Description 01/02/2025 1:00 PM CDT Office Visit [facility] [address] [place] [address] Lele Carrillo MD [address] [place] [address] Health Maintenance Due Date Last Done Comments Diabetes: Celiac Disease Screening 2002 Diabetes: Eye Exam 2002 Diabetes: Foot Exam 2002 Diabetes: Lipid Screening 2002 Hepatitis C Virus (HCV) Screening 2002 Pneumococcal Immunization Combined (2 of 2 - PCV) 05/24/2013 05/24/2012, 05/29/2003, 2002, Additional history exists Meningococcal B Immunization (1 of 2 - Standard) 2018 Pap Smear 2023 SARS-COV-2 Immunization ( season) 2024 Influenza Immunization (Season Ended) 2025 08/15/2019, 05/24/2015, 05/07/2011 Diabetes: Hemoglobin A1c 04/17/2025 025, 07/31/2024, 04/12/2024, Additional history exists Diabetes: Thyroid Stimulating Hormone (TSH) Screening 10/15/2025 10/15/2024, 09/17/2022 Diabetes: Nephropathy Screening 11/02/2025 11/02/2024, 10/15/2024, 08/13/2024, Additional history exists Td Immunization Every 10 Years (Adults With 1 Tdap) 01/18/2032 01/17/2022, 05/24/2012 Respiratory Syncytial Virus (RSV) Immunization (Adult) (1 - 1-dose 75+ series) 2077 Hepatitis B Immunization Completed 003, 2002, 2002 Varicella Immunization Discontinued 03/06/2003 Measles Mumps Rubella (MMR) Immunization Discontinued 03/18/2006, 03/06/2003 Polio (IPV) Immunization Discontinued 006, 05/29/2003, 2002, Additional history exists Human Papillomavirus (HPV) Immunization Completed 01/20/2016, 05/24/2015, 07/27/2014 Meningococcal Immunization (ACWY) Completed 04/06/2018, 07/27/2014 DTaP/Tdap/Td Immunization Discontinued 2021, 05/24/2012, 03/18/2006, Additional history exists Rotavirus Immunization Aged Out No lo nger eligible based on patient's age to complete this topic Procedures Procedure Name Priority Date/Time Associated Diagnosis Comments URINALYSIS REFLEX IF INDICATED BY ABNORMAL RESULTS STAT 11/02/2024 1:17 AM CDT POCT URINE HCG () STAT 11/02/2024 1:13 AM CDT POCT GLUCOSE STAT 11/02/2024 12:14 AM CDT CBC WITH AUTO DIFFERENTIAL STAT 11/02/2024 12:08 AM CDT BLOOD GASES, VENOUS W/ O2 SATURATION STAT 11/02/2024 12:08 AM CDT BETA HYDROXYBUTYRATE, [place] BHYD STAT 11/02/2024 12:08 AM CDT CMP (COMPREHENSIVE METABOLIC PANEL) STAT 11/02/2024 12:08 AM CDT COMPLETE BLOOD COUNT (CBC) WITH DIFF STAT 11/02/2024 12:08 AM CDT POCT GLUCOSE STAT 11/01/2024 11:58 PM CDT POCT GLUCOSE Routine 10/16/2024 10:37 AM CDT BASIC METABOLIC PANEL W/ CALCIUM TOTAL Timed 10/16/2024 7:37 AM CDT POCT GLUCOSE Routine 10/16/2024 7:13 AM CDT CBC WITH AUTO DIFFERENTIAL Routine 10/16/2024 3:56 AM CDT COMPLETE BLOOD COUNT (CBC) WITH DIFF Routine 10/16/2024 3:56 AM CDT BASIC METABOLIC PANEL W/ CALCIUM TOTAL Timed 10/16/2024 3:56 AM CDT PHOSPHORUS (PO4) Timed 10/16/2024 3:56 AM CDT MAGNESIUM (MG) Timed 10/16/2024 3:56 AM CDT POCT GLUCOSE Routine 10/16/2024 3:37 AM CDT POCT GLUCOSE Routine 10/16/2024 1:16 AM CDT RHYTHM STRIP 10/16/2024 12:00 AM CDT RHYTHM STRIP 10/16/2024 12:00 AM CDT BASIC METABOLIC PANEL W/ CALCIUM TOTAL Timed 10/15/2024 11:17 PM CDT POCT GLUCOSE Routine 10/15/2024 11:12 PM CDT POCT GLUCOSE Routine 10/15/2024 10:18 PM CDT POCT GLUCOSE Routine 10/15/2024 9:05 PM CDT POCT GLUCOSE Routine 10/15/2024 8:09 PM CDT CBC WITH AUTO DIFFERENTIAL Timed 10/15/2024 7:41 PM CDT LACTIC ACID (LACTATE) Timed 10/15/2024 7:41 PM CDT COMPLETE BLOOD COUNT (CBC) WITH DIFF Timed 10/15/2024 7:41 PM CDT BASIC METABOLIC PANEL W/ CALCIUM TOTAL Timed 10/15/2024 7:41 PM CDT PHOSPHORUS (PO4) Timed 10/15/2024 7:41 PM CDT MAGNESIUM (MG) Timed 10/15/2024 7:41 PM CDT POCT GLUCOSE Routine 10/15/2024 6:[address] ABDOMEN PELVIS W/ CONTRAST Stat with Interpretation 10/15/2024 6:07 PM CDT POCT GLUCOSE Routine 10/15/2024 5:25 PM CDT MRSA NASAL PCR Routine 10/15/2024 4:19 PM CDT MRSA NASAL BY PCR Routine 10/15/2024 4:1 9 PM CDT POCT GLUCOSE Routine 10/15/2024 4:13 PM CDT POCT GLUCOSE Routine 10/15/2024 2:26 PM CDT TEST FOR ACETONE/KETONES STAT 10/15/2024 1:42 PM CDT BASIC METABOLIC PANEL W/ CALCIUM TOTAL Timed 10/15/2024 1:42 PM CDT URINALYSIS REFLEX IF INDICATED BY ABNORMAL RESULTS STAT 10/15/2024 12:49 PM CDT POCT URINE HCG () STAT 10/15/2024 12:30 PM CDT CBC WITH AUTO DIFFERENTIAL STAT 10/15/2024 12:21 PM CDT THYROXINE (T4) FREE STAT 10/15/2024 12:21 PM CDT THYROID STIMULATING HORMONE (TSH) STAT 10/15/2024 12:21 PM CDT CREATINE KINASE (CK) TOTAL STAT 10/15/2024 12:21 PM CDT LIPASE STAT 10/15/2024 12:21 PM CDT AMYLASE STAT 10/15/2024 12:21 PM CDT C-REACTIVE PROTEIN (CRP) QUANT STAT 10/15/2024 12:21 PM CDT HEMOGLOBIN A1C W/ ESTIMATED GLUCOSE STAT 10/15/2024 12:21 PM CDT PHOSPHORUS (PO4) STAT 10/15/2024 12:21 PM CDT MAGNESIUM (MG) STAT 10/15/2024 12:21 PM CDT TEST FOR ACETONE/KETONES STAT 10/15/2024 12:21 PM CDT CMP (COMPREHENSIVE METABOLIC PANEL) STAT 10/15/2024 12:21 PM CDT COMPLETE BLOOD COUNT (CBC) WITH DIFF STAT 10/15/2024 12:21 PM CDT CRITICAL CARE Routine 10/15/2024 12:15 PM CDT POCT GLUCOSE STAT 10/15/2024 12:12 PM CDT RHYTHM STRIP 10/15/2024 12:00 AM MORTGAGE FUNDER RHYTHM STRIP 10/15/2024 12:00 AM MORTGAGE FUNDER from Last 3 Months Results * (ABNORMAL) Urinalysis w/ Reflex (11/02/2024 1:17 AM CDT) Only the most recent of2 resultswithin the time period is included. SPECIFIC GRAVITY 1.015 1.003 - 1.030 11/02/2024 1:39 AM CDT [facility] URINE PH 6.0 5.0 - 9.0 11/02/2024 1:39 AM CDT [facility] WBC ESTERASE Negative Negative 11/02/2024 1:39 AM CDT [facility] NITRITE Negative Negative 11/02/2024 1:39 AM CDT [facility] PROTEIN, RANDOM URINE 30 mg/dL(A) Negative 11/02/2024 1:39 AM CDT [facility] URINE GLUCOSE, QUAL 1000 mg/dL(A) Negative 11/02/2024 1:39 AM CDT [facility] URINE KETONES 150 mg/dL(A) Negative 1:39 AM CDT [facility] UROBILINOGEN Normal Normal mg/dL 11/02/2024 1:39 AM CDT [facility] URINE BLOOD 50 /uL(A) Negative sathya/ul 11/02/2024 1:39 AM CDT [facility] URINALYSIS COLOR Yellow 11/03/19 1:39 AM CDT [facility] URINALYSIS CLARITY Clear 11/02/2024 1:39 AM CDT [facility] WBC (Urine) Negative Negative, 0-5 /hpf 11/02/2024 1:39 AM CDT [facility] URINE RBC'S 3-5(A) Negative, 0-2 /hpf 11/02/2024 1:39 AM CDT [facility] EPITHELIAL CELLS Moderate amount /lpf 11/02/2024 1:39 AM CDT [facility] BACTERIA, URINE Few(A) Negative /hpf 11/02/2024 1:39 AM CDT [facility] Urine URINE SPECIMEN / Unknown Non-Phlebotomy Collection / Unknown 11/02/2024 1:17 AM CDT 11/02/2024 1:17 AM CDT Kodak Mosley MD URINE ORDERABLES Fin al Result [facility] [address] [place] [address] * POCT Urine HCG () (11/02/2024 1:13 AM CDT) Only the most recent of2 resultswithin the time period is included. [facility] POC URINE Negative POC URINE CONTROL Intelligent Systems Engineer Pass Urine 11/02/2024 1:13 AM CDT Kodak Mosley MD POINT OF CARE TESTIN G (MANUAL) Final Result * (ABNORMAL) POC Glucose (11/02/2024 12:14 AM CDT) Pathologist [facility] GLUCOSE 243(A) 70 - 99 mg/dL 11/02/2024 12:1 4 AM CDT Kodak Mosley MD POINT OF CARE TESTIN G (MANUAL) Final Result * (ABNORMAL) BETA HYDROXYBUTYRATE, [place] BHYD (11/02/2024 12:08 AM CDT) Pathologist [facility] BETA-HYDROXYBUTY RATE 1.8(H) <0.4 mmol/L 11/03/2024 8:40 PM CDT [facility] Comment: Test Performed by: [facility] [address] [address] Power Engineer: Stefani Franz Ph.D.; CLIA# [id number] Blood Venipuncture / Unknown 11/02/2024 12:08 AM CDT 11/02/2024 12:17 AM CDT us Kodak Mosley MD LAB SEND OUTS Lynn kelly Result [facility] * CBC with Auto Differential (11/02/2024 12:08 AM CDT) Only the most recent of4 resultswithin the time period is included. WBC 7.72 4.00 - 12.00 10(3)/mcL 11/02/2024 12:22 AM CDT [facility] RBC 4.90 3.80 - 5.30 10(6)/mcL 11/02/2024 12:22 AM CDT [facility] HEMOGLOBIN (HGB) 14.0 12.0 - 15.8 g/dL 11/02/2024 12:22 AM CDT [facility] HEMATOCRIT (HCT) 41.3 36.0 - 47.0 % 11/02/2024 12:22 AM CDT [facility] MCV 84.3 82.0 - 96.0 fL 11/02/2024 12:22 AM CDT [facility] MCH 28.6 26.0 - 34.0 pg 11/02/2024 12:22 AM CDT [facility] MCHC 33.9 31.0 - 36.0 g/dL 11/02/2024 12:22 AM CDT [facility] PLATELET COUNT 195 140 - 440 10(3)/mcL 11/02/2024 12:22 AM CDT [facility] RDW 12.2 11.8 - 15.5 % 11/02/2024 12:22 AM CDT [facility] MPV 11.7 9.7 - 12.4 fL 11/02/2024 12:22 AM CDT [facility] NEUTROPHILS 67.6 47.0 - 73.0 % 11/02/2024 12:22 AM CDT [facility] LYMPHOCYTES 26.2 18.0 - 42.0 % 11/02/2024 12:22 AM CDT [facility] MONOCYTES 4.7 4.0 - 12.0 % 11/02/2024 12:22 AM CDT [facility] EOSINOPHILS 1.0 0.0 - 5.0 % 11/02/2024 12:22 AM CDT [facility] BASOPHILS 0.5 0.0 - 1.0 % 11/02/2024 12:22 AM CDT [facility] ABSOLUTE NEUTROPHILS 5.22 1.60 - 7.70 10(3)/mcL 11/02/2024 12:22 AM CDT [facility] ABSOLUTE LYMPHOCYTES 2.02 1.30 - 3.20 10(3)/[facility] 11/02/2024 12:22 AM CDT [facility] ABSOLUTE MONOCYTES 0.36 0.20 - 1.00 10(3)/[facility] 11/02/2024 12:22 AM CDT [facility] ABSOLUTE EOSINOPHIL 0.08 0.00 - 0.40 10(3)/[facility] 11/02/2024 12:22 AM CDT [facility] ABSOLUTE BASOPHILS 0.04 0.00 - 0.10 10(3)/[facility] 11/02/2024 12:22 AM CDT [facility] NRBC PER 100 WBC 0 11/03/19 12:22 AM CDT [facility] Blood Venipuncture / Unknown 11/02/2024 12:08 AM CDT 11/02/2024 12:17 AM CDT us Kodak Mosley MD HEMATOLOGY ORDERABLE S Final Result [facility] [address] [place] [address] * (ABNORMAL) Blood Gases, Venous w/ O2 Saturation (11/02/2024 12:08 AM CDT) O2 STATUS 97 11/02/2024 12:35 AM CDT [facility] PH VENOUS 7.40 7.34 - 7.43 11/02/2024 12:35 AM T [facility] PCO2 (VENOUS) 32(L) 41 - 51 mmHg 11/02/2024 12:35 AM T [facility] PO2 VENOUS 59(H) 30 - 50 mmHg 11/02/2024 12:35 AM T [facility] O2 SAT JACK, MEASURED 72 60 - 85 % 10/08 12:35 AM [facility] BICARBONATE 20.2(L) 22.0 - 26.0 mmol/L 11/02/2024 12:35 AM [facility] BASE VENOUS -3.0(L) -2.0 - 3.0 mmol/L 11/02/2024 12:35 AM T [facility] CARBOXYHEMOGLOBIN 3.4 0.0 - 5.0 % 11/02/2024 12:35 AM [facility] METHEMOGLOBIN 0.5 0.0 - 1.5 % 11/02/2024 12:35 AM [facility] JACK Blood Gas Venipuncture / Unknown 11/02/2024 12:08 AM CDT 11/02/2024 12:32 AM T Narrative [facility] - 11/02/2024 12:35 AM CDT Interpretation - The usual approach to interpreting a VBG consists of using the venous measurements to estimate the corresponding arterial values, then using these estimated values for clinical decision-making exactly as if an ABG had been performed. The difference between the venous measurements and the arterial measurements depends upon the site of venous sampling and varies among laboratories. Correlation with arterial blood gases - Although arterial blood gas analysis is more accurate than venous analysis for the assessment of oxygenation, measurement of PCO2, pH, and HCO3 are similar with some minor adjustments: The central venous pH is usually 0.03 to 0.05 pH units lower than the arterial pH and the PCO2 is usually 4 to 5 mmHg higher, with little or no increase in HCO3. Mixed venous blood (ie, SvO2 drawn from a pulmonary artery catheter) gives results similar to central venous blood (ie, ScvO2 drawn from a central venous catheter). The peripheral venous pH is approximately 0.02 to 0.04 pH units lower than the arterial pH, the venous serum HCO3 concentration is approximately 1 to 2 meq/L higher, and the venous PCO2 is approximately 3 to 8 mmHg higher. There are no venous to arterial conversions for ScvO2, SvO2, or peripheral venous oxyhemoglobin saturation (PvO2). Importantly, sufficient variability between arterial and venous blood gas values may exist such that periodic correlation between arterial and venous blood gas values is always prudent. us Kodak Mosley MD CHEMISTRY ORDERABLES Final Result [facility] [address] [place] [address] * (ABNORMAL) CMP (11/02/2024 12:08 AM CDT) Only the most recent of2 resultswithin the time period is included. SODIUM 136 136 - 145 mmol/L 11/02/2024 12:42 AM CDT [facility] POTASSIUM 3.2(L) 3.5 - 5.1 mmol/L 11/02/2024 12:42 AM CDT [facility] CHLORIDE 104 98 - 107 mmol/L 11/02/2024 12:42 AM CDT [facility] CO2, VENOUS 21(L) 22 - 30 mmol/L 11/02/2024 12:42 AM CDT [facility] ANION GAP 14.2 <18.0 mmol/L 11/02/2024 12:42 AM CDT [facility] GLUCOSE 263(H) 70 - 99 mg/dL 11/02/2024 12:42 AM CDT [facility] BUN 14 5 - 18 mg/dL 11/02/2024 12:42 AM CDT [facility] CREATININE, BLOOD 0.77 0.60 - 1.00 mg/dL 11/02/2024 12:42 AM CDT [facility] BUN/CREATININE RATIO 18 12 - 20 ratio 11/02/2024 12:42 AM CDT [facility] TOTAL PROTEIN 7.9 6.0 - 8.0 g/dL 11/02/2024 12:42 AM CDT [facility] ALBUMIN 4.3 3.5 - 5.0 g/dL 11/02/2024 12:42 AM CDT [facility] A/G RATIO 1.2 1.0 - 2.2 11/02/2024 12:42 AM CDT [facility] CALCIUM 8.8 8.7 - 10.5 mg/dL 11/02/2024 12:42 AM CDT [facility] T BILI 1.0 0.2 - 1.2 mg/dL 11/02/2024 12:42 AM CDT [facility] SGOT (AST) 18 <43 U/L 11/02/2024 12:42 AM CDT [facility] SGPT (ALT) 13 <56 U/L 11/02/2024 12:42 AM CDT [facility] ALKALINE PHOSPHATASE 70 40 - 150 U/L 11/02/2024 12:42 AM CDT [facility] GFR, ESTIMATED >60 >=60 11/02/2024 12:42 AM CDT [facility] Comment: Creatinine Clearance is the preferred criteria for selecting drug dose adjustments in renally impaired patients. The GFR is provided as additional pertinent clinical information. GFR is reported in mL/min/1.73 sq m. Calculation based on the Chronic Kidney Disease Epidemiology Collaboration (CKD- EPI) equation refit without adjustment for race. GFR, EST. >60 >=60 025 12:42 AM CDT [facility] GFR, EST. NONAFRICAN >60 >=60 11/02/2024 12:42 AM CDT [facility] Blood Venipuncture / Unknown 11/02/2024 12:08 AM CDT 11/02/2024 12:18 AM CDT us Kodak Mosley MD CHEMISTRY ORDERABLES Final Result [facility] [address] [place] [address] * (ABNORMAL) POCT Glucose (11/01/2024 11:58 PM CDT) Only the most recent of14 resultswithin the time period is included. GLUCOSE,BEDSID E POCT 243(H) 70 - 99 mg/dL 11/02/2024 12:14 AM CDT [facility] Comment:Patient RN Performed Blood 11/01/2024 11:5 8 PM CDT 11/02/2024 12:14 AM CDT us None Provider POINT OF CARE TESTING Final Resu lt [facility] [address] [place] [address] * (ABNORMAL) BMP Routine (10/16/2024 7:37 AM CDT) Only the most recent of5 resultswithin the time period is included. SODIUM 139 136 - 145 mmol/L 10/16/2024 8:41 AM CDT [facility] POTASSIUM 3.1(L) 3.5 - 5.1 mmol/L 10/16/2024 8:41 AM CDT [facility] CHLORIDE 113(H) 98 - 107 mmol/L 10/16/2024 8:41 AM CDT [facility] CO2, VENOUS 19(L) 22 - 30 mmol/L 10/16/2024 8:41 AM CDT [facility] ANION GAP 10.1 <18.0 mmol/L 10/16/2024 8:41 AM CDT [facility] GLUCOSE 143(H) 70 - 99 mg/dL 10/16/2024 8:41 AM CDT [facility] BUN 9 5 - 18 mg/dL 10/16/2024 8:41 AM CDT [facility] CREATININE, BLOOD 0.72 0.60 - 1.00 mg/dL 10/16/2024 8:41 AM CDT [facility] BUN/CREATININE RATIO 13 12 - 20 ratio 10/16/2024 8:41 AM CDT [facility] CALCIUM 7.7(L) 8.7 - 10.5 mg/dL 10/16/2024 8:41 AM CDT [facility] GFR, ESTIMATED >60 >=60 10/16/2024 8:41 AM CDT [facility] Comment: Creatinine Clearance is the preferred criteria for selecting drug dose adjustments in renally impaired patients. The GFR is provided as additional pertinent clinical information. GFR is reported in mL/min/1.73 sq m. Calculation based on the Chronic Kidney Disease Epidemiology Collaboration (CKD- EPI) equation refit without adjustment for race. GFR, EST. >60 >=60 025 8:41 AM CDT [facility] GFR, EST. NONAFRICAN >60 >=60 10/16/2024 8:41 AM CDT [facility] Blood BLOOD SPECIMEN / Unknown Venipuncture / Unknown 10/16/2024 7:37 AM CDT 10/16/2024 7:37 AM CDT Keena Wilhelm APRN, TELEGRAPH SERVICE RATER CHEMISTRY ORDERABLES Final Result [facility] [address] [place] [address] * (ABNORMAL) PHOSPHORUS (PO4) (10/16/2024 3:56 AM CDT) Only the most recent of3 resultswithin the time period is included. PHOSPHORUS 2.4(L) 2.5 - 4.5 mg/dL 10/16/2024 4:53 AM CDT [facility] Blood BLOOD SPECIMEN / Unknown Venipuncture / Unknown 10/16/2024 3:56 AM CDT 10/16/2024 3:56 AM CDT Keena Wilhelm ELECTRICAL INSTRUMENTATION TECHNICIAN, TELEGRAPH SERVICE RATER CHEMISTRY ORDERABLES Final Result Performing Organization Address [facility] de Phone Number [facility] [address] [place] [address] * MAGNESIUM (MG) (10/16/2024 3:56 AM CDT) Only the most recent of3 resultswithin the time period is included. MAGNESIUM 2.1 1.6 - 2.6 mg/dL 10/16/2024 4:53 AM CDT [facility] Blood BLOOD SPECIMEN / Unknown Venipuncture / Unknown 10/16/2024 3:56 AM CDT 10/16/2024 3:56 AM CDT Keena Wilhelm APRN, [facility] CHEMISTRY ORDERABLES Final Result Performing Organization Address [facility] Phone Number [facility] [address] [place] [address] * RHYTHM STRIP (10/16/2024 12:00 AM CDT) Only the most recent of4 resultswithin the time period is included. 10/16/2024 us Provider Scan IMG ECG ORDERABLES Final Result Performing Organization Address [facility] Phone Number RESULTING AGENCY * Lactic Acid (Lactate) (10/15/2024 7:41 PM CDT) LACTIC ACID 1.1 0.7 - 2.0 mmol/L 10/15/2024 8:10 PM CDT [facility] Blood Venipuncture / Unknown 10/15/2024 7:41 PM CDT 10/15/2024 7:44 PM CDT Luciano Terry MD CHEMISTRY ORDERABLES Final Re sult Performing Organization Address [facility]/State/ZIP Co de Phone Number [facility] [address] [place] [address] * CT ABDOMEN PELVIS W/ CONTRAST (10/15/2024 6:07 PM CDT) Anatomical Region Laterality Modality Abdomen N/A Computed Tomogra phy 10/15/2024 6:22 PM CDT Impressions 10/15/2024 6:24 PM CDT IMPRESSION: Findings suggesting mild colitis of the ascending colon. No evidence of complication. Simple appearing left renal cysts. Narrative 10/15/2024 6:24 PM CDT EXAM DESCRIPTION: CT ABDOMEN PELVIS W/ CONTRAST REASON FOR STUDY: pt admitted for elevated blood sugar and nausea/ vomiting/diarrhea with streaking of blood x 3 days. TECHNIQUE: CT scan of the abdomen and pelvis performed with intravenous and without oral contrast using helical scanning technique with dynamic intravenous contrast injection. Reconstructed coronal and sagittal MPR images reviewed. All images stored on PACS. Automated exposure control was used as a dose optimization technique for this examination. CONTRAST TYPE/DOSE: 72mL of IOPAMIDOL 76 % IV SOLN injected via Intravenous COMPARISON: None FINDINGS: LOWER CHEST: No significant pulmonary abnormalities. No effusion. LIVER: Normal size. No identified cystic or solid masses. GALLBLADDER: Unremarkable BILE DUCTS: No intrahepatic or extrahepatic ductal dilatation. SPLEEN: Normal size. No focal lesions. PANCREAS: No identified cystic or solid masses. No significant calcifications. No adjacent inflammation or peripancreatic fluid collections. Pancreatic duct not dilated. ADRENALS: Normal. KIDNEYS/URINARY TRACT: 2.5 cm simple appearing cyst is seen in the upper left kidney. No hydronephrosis is seen. A least 2 smaller cysts are also seen in the left kidney. No renal or ureteral stones are seen. Urinary bladder is unremarkable. GI: No dilated loops of bowel are seen. There is some mild haziness perhaps representing inflammation along with mild wall thickening questioned of the ascending colon. This might suggest a colitis of uncertain etiology. No evidence of pneumatosis or perforation is seen. Small bowel appears unremarkable. The stomach appears unremarkable. The appendix is not well seen. No pericecal inflammatory changes are seen. PERITONEUM: No ascites or free air. RETROPERITONEUM: No mass or adenopathy. REPRODUCTIVE: No significant abnormality. VASCULATURE: No abdominal aortic aneurysm. MUSCULOSKELETAL: No significant abnormality. OTHER: No other abnormality. THIS IS AN ELECTRONICALLY VERIFIED FINAL REPORT 10/15/2024 6:22 PM - Electronically signed by Kain Torres M.D. KH: BRENDA Report ID: [id number] Reading Location: [place] [address] Procedure Note Kain Torres MD - 10/15/2024 EXAM DESCRIPTION: CT ABDOMEN PELVIS W/ CONTRAST REASON FOR STUDY: pt admitted for elevated blood sugar and nausea/ vomiting/diarrhea with streaking of blood x 3 days. TECHNIQUE: CT scan of the abdomen and pelvis performed with intravenous and without oral contrast using helical scanning technique with dynamic intravenous contrast injection. Reconstructed coronal and sagittal MPR images reviewed. All images stored on PACS. Automated exposure control was used as a dose optimization technique for this examination. CONTRAST TYPE/DOSE: 72mL of IOPAMIDOL 76 % IV SOLN injected via Intravenous COMPARISON: None FINDINGS: LOWER CHEST: No significant pulmonary abnormalities. No effusion. LIVER: Normal size. No identified cystic or solid masses. GALLBLADDER: Unremarkable BILE DUCTS: No intrahepatic or extrahepatic ductal dilatation. SPLEEN: Normal size. No focal lesions. PANCREAS: No identified cystic or solid masses. No significant calcifications. No adjacent inflammation or peripancreatic fluid collections. Pancreatic duct not dilated. ADRENALS: Normal. KIDNEYS/URINARY TRACT: 2.5 cm simple appearing cyst is seen in the upper left kidney. No hydronephrosis is seen. A least 2 smaller cysts are also seen in the left kidney. No renal or ureteral stones are seen. Urinary bladder is unremarkable. GI: No dilated loops of bowel are seen. There is some mild haziness perhaps representing inflammation along with mild wall thickening questioned of the ascending colon. This might suggest a colitis of uncertain etiology. No evidence of pneumatosis or perforation is seen. Small bowel appears unremarkable. The stomach appears unremarkable. The appendix is not well seen. No pericecal inflammatory changes are seen. PERITONEUM: No ascites or free air. RETROPERITONEUM: No mass or adenopathy. REPRODUCTIVE: No significant abnormality. VASCULATURE: No abdominal aortic aneurysm. MUSCULOSKELETAL: No significant abnormality. OTHER: No other abnormality. THIS IS AN ELECTRONICALLY VERIFIED FINAL REPORT 10/15/2024 6:22 PM - Electronically signed by Kain Torres M.D. KH: BRENDA Report ID: [id number] Reading Location: [id number] IMPRESSION: Findings suggesting mild colitis of the ascending colon. No evidence of complication. Simple appearing left renal cysts. Luciano Terry MD IMG CT ORDERABLES Final Resul t * MRSA NASAL PCR (10/15/2024 4:19 PM CDT) MRSA PCR RESULT Negative Negative, Invalid 10/15/2024 5:52 PM CDT [facility] Other NASOPHARYNGEAL SWAB / Unknown Non-Phlebotomy Collection / Unknown 10/15/2024 4:19 PM CDT 10/15/2024 4:19 PM CDT Luciano Terry MD MICROBIOLOGY - GENERAL ORDERA BLES Final Result Performing Organization Address City/[facility]/ZIP Co de Phone Number [facility] [address] [place] [address] * Acetone/Ketones Qualitative-Blood (10/15/2024 1:42 PM CDT) Only the most recent of2 resultswithin the time period is included. ACETONE Negative Negative 10/15/2024 2:26 PM CDT [facility] Blood Venipuncture / Unknown 10/15/2024 1:42 PM CDT 10/15/2024 2:10 PM CDT Ying Carter MD CHEMISTRY ORDERABLES Final Re sult Performing Organization Address City/[facility]/ZIP Co de Phone Number [facility] [address] [place] [address] * (ABNORMAL) Hemoglobin A1C (10/15/2024 12:21 PM CDT) HGB-A1C 10.2(H) 4.0 - 6.0 % 10/15/2024 2:06 PM CDT [facility] Est Average Glucose 246.0 mg/dL 10/15/2024 2:06 PM CDT [facility] Blood Venipuncture / Unknown 10/15/2024 12:21 PM CDT 10/15/2024 12:37 PM CDT Narrative [facility] - 10/15/2024 2:06 PM CDT HEMOGLOBIN A1C: DIABETIC PATIENTS: WELL-CONTROLLED: 6.2 - 7.0 INTERMEDIATE WELL-CONTROLLED: 7.0 - 9.0 POORLY-CONTROLLED: >9.0 Specimens containing greater than 5% of Hemoglobin F may result in lower than expected % HbA1C results. us Ying Carter MD CHEMISTRY ORDERABLES Final Re sult Performing Organization Address [facility]/ZIP Co de Phone Number [facility] [address] [place] [address] * THYROXINE (T4) FREE (10/15/2024 12:21 PM CDT) T4 FREE 1.2 0.7 - 1.9 ng/dL 10/15/2024 5:59 PM CDT [facility] Blood Venipuncture / Unknown 10/15/2024 12:21 PM CDT 10/15/2024 12:37 PM CDT us Luciano Terry MD CHEMISTRY ORDERABLES Final Re sult [facility] [address] [place] [address] * Thyroid Stimulating Hormone (TSH) (10/15/2024 12:21 PM CDT) TSH 0.606 0.300 - 5.000 mIU/L 10/15/2024 5:59 PM CDT [facility] Blood Venipuncture / Unknown 10/15/2024 12:21 PM CDT 10/15/2024 12:37 PM CDT Luciano Terry MD CHEMISTRY ORDERABLES Final Re sult Performing Organization Address City/[facility]/ZIP Co de Phone Number [facility] [address] [place] [address] * Lipase (10/15/2024 12:21 PM CDT) LIPASE 11 8 - 78 U/L 10/15/2024 2:28 PM CDT [facility] Blood Venipuncture / Unknown 10/15/2024 12:21 PM CDT 10/15/2024 12:37 PM CDT Luciano Terry MD CHEMISTRY ORDERABLES Final Re sult Performing Organization Address [facility] Co de Phone Number [facility] [address] [place] [address] * Creatine Kinase (CK) Total (10/15/2024 12:21 PM CDT) [facility] CK (CPK) 55 29 - 168 U/L 10/15/2024 2:28 PM CDT [facility] Blood Venipuncture / Unknown 10/15/2024 12:21 PM CDT 10/15/2024 12:37 PM CDT Luciano Terry MD HEMATOLOGY ORDERABLES Final R esult Performing Organization Address [facility] Co de Phone Number [facility] [address] [place] [address] * (ABNORMAL) C-Reactive Protein (CRP) Quant (10/15/2024 12:21 PM CDT) [facility] C-REACTIVE PROTEIN 0.98(H) <0.50 mg/dL 10/15/2024 2:28 PM CDT [facility] Blood Venipuncture / Unknown 10/15/2024 12:21 PM CDT 10/15/2024 12:37 PM CDT Luciano Terry MD CHEMISTRY ORDERABLES Final Re sult Performing Organization Address City/[facility] Co de Phone Number [facility] [address] [place] [address] * Amylase (10/15/2024 12:21 PM CDT) AMYLASE 48 25 - 125 U/L 10/15/2024 2:28 PM CDT [facility] Blood Venipuncture / Unknown 10/15/2024 12:21 PM CDT 10/15/2024 12:37 PM CDT Luciano Terry MD CHEMISTRY ORDERABLES Final Re sult Performing Organization Address [facility] Co de Phone Number [facility] [address] [place] [address] * Critical Care (10/15/2024 12:15 PM CDT) Narrative Ying Carter MD - 10/15/2024 12:15 PM CDT Ying Carter MD 10/15/2024 2:20 PM Critical Care Performed by: Ying Carter MD Authorized by: Ying Carter MD Critical care provider statement: Critical care time (minutes): 35 Critical care was necessary to treat or prevent imminent or life-threatening deterioration of the following conditions: Metabolic crisis Critical care was time spent personally by me on the following activities: Development of treatment plan with patient or surrogate, evaluation of patient's response to treatment, examination of patient, ordering and performing treatments and interventions, ordering and review of laboratory studies, ordering and review of radiographic studies, pulse oximetry and re-evaluation of patient's condition Care discussed with: admitting provider Comments: Insulin drip for DKA Ying Carter MD PROCEDURE/MINOR SURGICAL ROSA BISHOP Final Result from Last 3 Months Insurance MEDICAID [facility] Advance Directives * Full Code (Latest Code Status on File) Date Activated Date Inactivated Comments 10/15/2024 4:53 PM CPR-Full Treatm ent: FULL ARREST: Attempt Resuscitation/CPR wit intubation and mechanical ventilation. PRE-ARREST: Use entire range of life support measures to stabilize the patient. * Full Code Date Activated Date Inactivated Comments 12/13/2023 12:40 PM 12/14/2023 3:45 AM CPR-Full Elizabeth tment: FULL ARREST: Attempt Resuscitation/CPR wit intubation and mechanical ventilation. PRE-ARREST: Use entire range of life support measures to stabilize the patient. Care Teams Director Of Strategic Initiatives Relationship Specialty Start Date End Date Alexander Rankin MD [address] [place] [address] PCP - General Internal Medicine 01/17/22 Lele Carrillo MD [address] [place] [address] Consulting Physician Neurology 06/26/22
--- OUTSIDE RECORDS SUMMARY | 2024-12-11 19:38 | XMS_ITS | Encounter Summary ---
Author Organization [facility] Address [address] [place] [address] Care Team Providers Care Coffee Weigher Name Role Phone Heather Mathias MD Primary Care Provider + [phone] Heather aMthias MD Primary Care Provider + [phone] Reason for Visit * Reason Onset Date Comments Question 12/22/2010 Wants to know if FMLA paperwork was completed Encounter Details Date Type Department Care Team (Late st Contact Info) Description 12/22/2010 Telephone [facility] Pediatrics - Diabetes [address] [address] Chikis Briggs MD Question (Wants to know if FMLA paperwork was completed) Social History Tobacco Use Types Packs/Day Years Used Date Smoking Tobacco: Never Comments:Passive smoke expos ure Alcohol Use Standard Drinks/Week Comments Not Asked 0 (1 standard drink = 0.6 oz pur e alcohol) Comments Unknown Sex and Gender Information Value Date Recorded Sex Assigned at Not on file Legal Sex Female 11:39 AM AUTOMATIC SEAMER Gender Identity Not on file Sexual Orientation Not on file documented as of this encounter Plan of Treatment Not on file documented as of this encounter Visit Diagnoses Not on filedocumented in this encounter Additional Health Concerns Infection Onset Date Last Indicated Resolved Time COVID-19 Under Investigation 07/21/2020 07/21/2020 07/21/2020 12:45 AM AUTOMATIC SEAMER documented as of this encounter Care Teams Coffee Weigher Relationship Specialty Start Date End Date Heather Mathias MD [address] [place] [address] PCP - General 11/27/10 03/18/21 Heather Mathias MD [address] [place] [address] PCP - General 03/20/21 documented as of this encounter
--- OUTSIDE RECORDS SUMMARY | 2024-12-11 19:38 | XMS_ITS | Encounter Summary ---
Author Organization [facility] [employer] Address [address] [place] [address] Care Team Providers Care Diamond Merchant Name Role Phone Heather Mathias MD Primary Care Provider + [phone] Heather Mathias MD Primary Care Provider + [phone] Reason for Visit * Reason Onset Date Comments MEDICATION REFILL 12/31/2017 Encounter Details Date Type Department Care Team (Late st Contact Info) Description 12/31/2017 Refill [facility] Pediatrics - Diabetes [id number] [place] [address] Km Perkins APRN-[address] [phone] MEDICATION REFILL Social History Tobacco Use Types Packs/Day Years Used Date Smoking Tobacco: Never Smokeless Tobacco: Never Comments:Passive smoke expos ure Alcohol Use Standard Drinks/Week Comments Not Asked 0 (1 standard drink = 0.6 oz pur e alcohol) Comments No Sex and Gender Information Value Date Recorded Sex Assigned at Not on file Legal Sex Female 11:39 AM MINERAL MIXER Gender Identity Not on file Sexual Orientation Not on file documented as of this encounter Miscellaneous Notes * Telephone Encounter - Krys Murillo RN - 01/04/2018 7:44 AM CDT New insurance for family per mothers voicemail.called home and left vm to call office and provide new insurance. documented in this encounter Plan of Treatment Not on file documented as of this encounter Visit Diagnoses Diagnosis Type 1 diabetes mellitus without complication (HCC) Type I (juvenile type) diabetes mellitus without mention of complication, not stated as uncontrolled documented in this encounter Additional Health Concerns Infection Onset Date Last Indicated Resolved Time COVID-19 Under Investigation 07/21/2020 07/21/2020 07/21/2020 12:45 AM MINERAL MIXER documented as of this encounter Care Teams Diamond Merchant Relationship Specialty Start Date End Date Heather Mathias MD [address] [place] [address] PCP - General 11/27/10 03/18/21 Heather Mathias MD [address] [place] [address] PCP - General 03/20/21 documented as of this encounter
--- OUTSIDE RECORDS SUMMARY | 2024-12-11 19:38 | XMS_ITS | Encounter Summary ---
Author Organization [facility] Address [address] [place] [address] Care Team Providers Care Media Strategist Name Role Phone Heather Mathias MD Primary Care Provider + [phone] Heather Mathias MD Primary Care Provider + [phone] Encounter Details Date Type Department Care Team (Late st Contact Info) Description 07/12/2020 Telephone [facility] Pediatrics - Endocrinology [address] [place] [address] Nicole Ralph, DO [address] [place] [address] Social History Tobacco Use Types Packs/Day Years [...] on file Legal Sex Female 11:39 AM PAPER REELER Gender Identity Not on file Sexual Orientation Not on file documented as of this encounter Functional Status * Is person deaf or have serious hearing difficulty? Answer Date of Assessment Author No 05/24/2020 3:43 AM Alfredo Shook RN * Is person blind or have serious difficulty seeing? Answer Date of Assessment Author No 05/24/2020 3:43 AM Alfredo Shook RN * Does person have serious difficulty walking/climbing stairs? Answer Date of Assessment Author No 05/24/2020 3:43 AM Alfredo Shook RN * Does person have difficulty dressing/bathing? Answer Date of Assessment Author No 05/24/2020 3:43 AM Alfredo Shook RN * Does person have difficulty doing errands alone? Answer Date of Assessment Author No 05/24/2020 3:43 AM Alfredo Shook RN documented as of this encounter Mental Status * Does person have difficulty concentrating/remembering/making decisions? Answer Entry Date Author No 05/24/2020 3:43 AM Alfredo Shook RN documented in this encounter Miscellaneous Notes * Telephone Encounter - Krys Murillo RN - 07/23/2020 10:48 AM PAPER REELER Diabetes Sick Call Patient: Emma Guidry Date: 07/23/2020 Current Blood Glucose: 329-->425 Current Ketone result: large Last insulin given: Novolog: Dose correction around 0940 Symptoms: vomiting at 1015, abdominal pain and SOB Recent Illness: yes. Plan per sick day protocol: Push sugar free fluid. Give 5 units Miscellaneous: in ER Wednesday/Wednesday Changed site last night. Was running out of insulin. Mother was discussing care on phone. I asked her to change site and push fluids. She in mid-conversation reported that has chest pain and that she was huffing and puffing with exertion. I advised her to go to the nearest hospital. Mother was hesitant to take her to local [facility] 45-60 minutes from their home. I again reiterated that I advise to take to local ER. Also advised to dose another 5 units via syringe and change pump site. Mother stated she was bringing to . I asked her to call 911 en route if she worsened. She agreed. R REELER * Telephone Encounter - Krys Murillo RN - 07/16/2020 8:26 AM PAPER REELER Received denial from [employer] for [employer] meter. Strips going through insurance fine. Pt has appt 07/18. Will have them take meter home. Attempted to call and discuss. No answer. ' R REELER * Telephone Encounter - Nicole Ralph DO - 07/12/2020 6:35 AM PAPER REELER Mom called back through the exchange. 's blood sugar is decreased to 253 and ketones are still large. I recommended to give 8 units by shot (regular correction, 10% TDD). Receheck blood sugar and ketones in 2 hours. If moderate, give a dose through the pump and recheck in 2 hours. If large, call to office and also plan to see primary care doctor if possible to be assessed for illness. R REELER * Telephone Encounter - Nicole Ralph, - 07/12/2020 3:27 AM PAPER REELER Mom called back through the exchange. still has large ketones 3 hours later and her blood sugar is 354. She did drink the soda, ate a banana instead. She is still not feeling well but no vomiting. Ear thermometer showed 99.5. I recommended to wash hands and recheck, 324. Recommended 15 units by shot (close to double correction or 20% TDD). Recheck blood sugar and ketones in 2 hour or sooner if feeling low. Call back if not improving. R REELER * Telephone Encounter - Nicole Ralph, - 07/12/2020 12:47 AM PAPER REELER Mom called through the exchange due to blood sugar 282 and large ketones. Ketones were checked because she is nauseated. She was reported to be in the 600's last night after a frappucino. She bolused insulin several times and decreased to the 200's. Around 12:30 pm she was in the 300's and bolused for lunch. She has not eaten since then. About 30 minutes ago she boluses for Ramen noodles (104 grams of carb) but then was too nauseated to eat it. Her bolus of 25 units has already completed. I suspect that her ketones may be starvation ketones vs illness vs pump not working. Unfortunately,I cannot have her take a shot if she has just bolused for 25 units through her pump. Also, 25 unitsis more that Iwould recommend to give for 282 and large ketones (would recommend 16 units at most, leaving 9 units). I recommended to try to around 50 grams or try some liquid sugar and may not need as many. She has Sprite. She will try to drink a half a can to start. Recommended to check sugar in one hour and 2 hours and check ketones at 2 hours. Call if the ketones are not decreased. Go to ER if vomiting. R REELER documented in this encounter Plan of Treatment Not on file documented as of this encounter Visit Diagnoses Not on filedocumented in this encounter Additional Health Concerns Infection Onset Date Last Indicated Resolved Time COVID-19 Under Investigation 07/21/2020 07/21/2020 07/21/2020 12:45 AM PAPER REELER documented as of this encounter Care Teams Media Strategist Relationship Specialty Start Date End Date Heather Mathias MD [address] [place] [address] PCP - General 11/27/10 03/18/21 Heather Mathias MD [address] [place] [address] PCP - General 03/20/21 documented as of this encounter
--- OUTSIDE RECORDS SUMMARY | 2024-12-11 19:38 | XMS_ITS | Clinical Summary ---
Author Organization [facility] [address] Address [address] [place] [address] Phone Care Team Providers Care Addiction Medicine Physician Name Role Phone Alexander Rankin MD Primary Care Provider [phone] Allergies Active Allergy Reactions Criticality Noted Date [...] by mouth daily 3 Active blood-glucose sensor (Dexcom G6 Sensor) device CHANGE SENSOR EVERY 10 [...] She did not know her log into [employer] Assessment & Plan (12/21/2023 4:46 PM CDT): This is a chronic condition which is uncontrolled with hyperglycemia, not at goal. Type of insulin pump- OP 5 Pump settings : Basal 0000-1.25 units, 0600-1.5units/hr IC -5 ISF -28 Active insulin time 4hrs. [employer] GLUCOSE -120 Unable to download not connected to [employer] Assessment & Plan (06/17/2023 2:41 PM NAVAL AIRCREWMAN): This is a chronic condition which is [...] WRITTEN ON 03/15/2023 2:14 PM BY DILMA MILLER, POWERHOUSE MECHANIC APPRENTICE This is a chronic condition which is uncontrolled with hyperglycemia, not at goal. Does not bolus. Reviewed data per PDM. Unable to download as she is not collect connected with [employer]. Provided name and number of Omnipod computer trainer Type of insulin pump- OP 5 Pump [...] 11/18/2022 1:01 PM BY DILMA MILLER NP Wears Dexcom 6 for continuous glucose monitoring [...] to this, now seeing Linnea Forman in [place] for counseling. . . 09-04-19 lost her psychiatrist so [facility] . . . Seeing counselor there. 09-02-20 Endocrine sent patient to ER for cutting self; counseling recommended through [facility]. Urine positive THC. 01-23-21 SEEING MARI EVANS AND IS ON ZOLOFT 50 MG. 02-04-21 [facility] said consulted Psychiatry and they rec increase [...] A1c 7.8. Gets regular follow up at [facility] and has regular eye checks with Dr. Cuenca locally. 12-19-20 A1c down to 6.1%. [facility] notes do not pop in to my [...] therapy Assessment & Plan (09/17/2023 4:27 PM NAVAL AIRCREWMAN): This is a chronic condition which is [...] age Assessment & Plan (06/17/2023 2:37 PM NAVAL AIRCREWMAN): This is a chronic condition which is [...] with type 1 diabetes mellitus 08/04/2024 11/09/2024 Encounters Date Type Department Care Team Description 11/09/2024 11:30 AM CDT Office Visit [facility] at [address] [address] Dilma Miller, KILEY Type 1 diabetes mellitus with hyperglycemia (HCC) (Primary Dx); Medtronic 780g Insulin pump in place; Overweight with body mass index (BMI) of 25 to 25.9 in adult from Last 3 Months Immunizations Immunization Administration Dates Next Due DTaP [...] Polysaccharide PPV23 05/24/2012 Tdap 05/24/2012 Varicella 03/06/2003 Surgical History Surgery Date Site/Laterality Comments TONSILLECTOMY AND ADENOIDECTOMY 07/09/2012 - 08/08/2012 PET #1 TYMPANOSTOMY TUBE PLACEMENT 11/07/2013 - 12/06/2013 PET #2 INCISION AND DRAINAGE 02/08/2020 Pilonidal abscess [facility]; 02-27-20 Gen Surg said f/u prn Medical History Medical History Date Comments Diabetes type I (HCC) 2010 Admit/diag nosis DKA (diabetic ketoacidoses) 05/23/2020 Over night admission DKA (diabetic ketoacidoses) 07/23/2020 CO2 5, pH 7.0; UTI Rx ceftriaxone then Keflex Serotonin syndrome 02/04/2021 Accidentally took Zoloft instead of headache med - admitted Diabetic keto-acidosis (HCC) 03/2021 In [facility] then left AMA and next day admit [facility] Diabetic ketoacidosis withou t coma associated with type 1 diabetes mellitus (HCC) 08/04/2024 Family History Medical History Relation Name Comments Allergic rhinitis Father [place] Diabetes Other 1 Sudden Cardiac Other 2 NONE Colon cancer Other 3 Breast cancer Other 4 Relation Name Status Comments Father Other 1 Other 2 Other 3 Other 4 Social History Tobacco Use Types Packs/Day Years Used Date Smoking Tobacco: Every Day Smokeless Tobacco: Never Tobacco Cessation:Ready to Q uit: Not Asked; Counseling Given: Not Answered Comments:vape Alcohol Use Standard Drinks/Week Comments Never 0 (1 standard drink = 0.6 oz pur e alcohol) [facility] Utilities Answer Date Recorded In the past 12 months has th e electric, gas, oil, or water company threatened to shut off services in your [...] often do you attend chur ch or sabianism services? Never 08/01/2024 Do you belong to any clubs o r organizations such as yarsanism groups, unions, fraternal or athletic groups, or [...] any time in the past 12 m [facility], were you homeless or living in a [place] health care facility (including now)? No 08/01/2024 Personal Safety Answer Date Recorded Have you ever been in or are you currently in a harmful physical or emotional relationship or is someone making you feel afraid or unsafe? Denies 08/01/2024 Comments No Sex and Gender Information Value Date Recorded Sex Assigned at Not on file Legal Sex Female 4:39 PM NAVAL AIRCREWMAN Gender Identity Not on file Sexual Orientation Not on file Occupation Industry Job Start Date Job End Date student Not on file Not on file Not on file Obstetrics History Last Filed Vital Signs Vital Sign Reading Time Taken Comments Blood Pressure 104/64 11/09/2024 11:54 AM CDT Pulse 96 08/04/2024 8:50 AM NAVAL AIRCREWMAN Simultaneous filing. User may not have seen previous data. Temperature 36.4 C (97.6 F) 08/04/2024 8:50 AM NAVAL AIRCREWMAN Respiratory Rate 18 08/04/2024 8:50 AM NAVAL AIRCREWMAN Oxygen Saturation 98% 08/04/2024 8:5 0 AM NAVAL AIRCREWMAN Inhaled Oxygen Concentration - - Weight 62.2 kg (137 lb 1.6 oz) 11/09/2024 11:54 AM CDT Height 154.9 cm (5' 1 ) 11/09/2024 11:5 4 AM CDT Body Mass Index 25.9 11/09/2024 11:54 AM CDT Plan of Treatment Health Maintenance Due Date Last Done Comments Cervical Cancer Screening 2002 Depression Screening 2002 Hepatitis C Screening 2002 Varicella Vaccines (2 of 2 - 2-dose childhood series) 2006 03/06/2003 Meningococcal B Vaccine (1 o f 2 - Standard) 2018 Regular Well Visit/Exam 18-64 02/29/2020 Chlamydia and Gonorrhea (GC/ CT) Screening 01/23/2022 01/23/2021, 11/06/2019, 05/16/2019 Albumin Creatinine Ratio, Urine 09/17/2024 09/17/2023, 11/19/2022, 05/01/2022 Lipid Panel 09/17/2024 09/17/2023, 11/07, 05/01/2022 Influenza Vaccine (Season Ended) 2025 08/15/2019, 05/24/2015, 05/31/2013, Additional history exists Foot Exam 04/12/2025 04/12/2024, 12/07, 09/17/2023, Additional history exists Hemoglobin A1C 05/11/2025 11/09/2024, 07/10, 04/12/2024, Additional history exists eGFR 08/04/2025 08/04/2024, 07/10, 08/02/2024, Additional history exists TSH Level 10/15/2025 10/15/2024, 02/0 04/2024, 11/19/2022, Additional history exists Dilated Eye Exam 10/25/2026 10/25/2024 DTaP/Tdap/Td Vaccine (8 - Td or Tdap) 01/18/2032 01/17/2022, 05/24/2012, 03/18/2006, Additional history exists Pneumococcal vaccine <65 (2 of 2 - PCV20 or PCV21) 02/29/2052 05/24/2012, 05/29/2003, 2002, Additional history exists Hepatitis B Screening Completed 2002 , 2002, 2002 HPV Vaccines Completed 01/20/2016, 05/09, 07/27/2014 Procedures Procedure Name Priority Date/Time Associated Diagnosis Comments POCT GLUCOSE Routine 11/09/2024 11:59 AM CDT Type 1 diabetes mellitus with hyperglycemia (HCC) POCT HEMOGLOBIN A1C Routine 11/09/2024 1 1:58 AM CDT Type 1 diabetes mellitus with hyperglycemia (HCC) DIABETIC EYE EXAM Routine 10/25/2024 EGFR Routine 08/04/2024 4:57 AM NAVAL AIRCREWMAN LIPID PANEL Routine 09/17/2023 1:55 PM NAVAL AIRCREWMAN Type 1 diabetes mellitus with hyperglycemia (HCC) ALBUMIN CREATININE RATIO, URINE Routine 09/17/2023 1:55 PM NAVAL AIRCREWMAN Type 1 diabetes mellitus with hyperglycemia (HCC) THYROID FUNCTION CASCADE Routine 09/17/2023 1:55 PM NAVAL AIRCREWMAN Type 1 diabetes mellitus with hyperglycemia (HCC) N. GONORRHOEAE/C. TRACHOMATIS AMPLIFICATION Routine 01/23/2021 11:10 AM CDT Screen for sexually transmitted diseases from Last 3 Months or Most Recently Relevant to Health Maintenance Results * (ABNORMAL) POCT glucose (11/09/2024 11:59 AM CDT) Glucose Blood, POC 389 mg/dL Blood 11/09/2024 11:5 9 AM CDT Dilma Miller NP POINT OF CARE TEST ORDERABLES F inal Result * (ABNORMAL) POCT hemoglobin A1c (11/09/2024 11:58 AM CDT) Hemoglobin A1C, POC 103 4.0 - 5.6 % Blood 11/09/2024 11:5 8 AM CDT Dilma Miller NP POINT OF CARE TEST ORDERABLES F inal Result * Diabetic Eye Exam (10/25/2024) 10/25/2024 Historical Provider HEALTH MAINTENANCE Final Result * eGFR (08/04/2024 4:57 AM NAVAL AIRCREWMAN) eGFR >90 >=60 mL/min/1. 73 m2 Comment: [...] last reviewed 2021. Blood 08/04/2024 4:57 AM NAVAL AIRCREWMAN 08/04/2024 5:12 AM NAVAL AIRCREWMAN us Markos Delacruz MD LAB BLOOD ORDERABLES Final Resu lt Performing Organization Address [facility]/ZIP Co de Phone Number [facility] [place] [address] * Thyroid Function Gaines (09/17/2023 1:55 PM NAVAL AIRCREWMAN) TSH 1.61 0.30 - 4.20 mcIUnit/mL [facility] Blood 09/17/2023 1:55 PM NAVAL AIRCREWMAN 09/17/2023 3:55 PM NAVAL AIRCREWMAN us Dilma Miller NP LAB BLOOD ORDERABLES Final Resu lt [facility] 1 [facility] [place] [employer] [address] * Albumin Creatinine Ratio, Urine (09/17/2023 1:55 PM NAVAL AIRCREWMAN) Albumin Ur 15.4 mg/L [facility] ([place] Comment: Interpretive Data No reference range established. Current interpretive data was last revised 2018. Testing performed by: [facility], [address] [place] [address], [place]., [address] Creatinine Ur 205.1 mg/dL [facility] ([place]) Comment: Interpretive Data No reference range established. Current interpretive data was last revised 2018. Testing performed by: [facility], [address] [place] [address]., [id number] Albumin Creatinine Ratio, Ur 8 1 - 29 mg/g [facility] ([place]) Comment:Testing performed by : [facility], [address] [place] [address]., [id number] Urine 09/17/2023 1:55 PM NAVAL AIRCREWMAN 09/17/2023 7:38 PM NAVAL AIRCREWMAN us Dilma Miller NP LAB URINE ORDERABLES Final Resu lt [facility] [place] 1 [facility] Department [place] [address] * Lipid panel (09/17/2023 1:55 PM NAVAL AIRCREWMAN) Cholesterol 107 30 - 199 mg/dL [facility] ([place]) Comment: Interpretive Data [...] last revised on 2018. Chol/HDL ratio 2 JAREDNE Charles [facility] ([place]) Blood 09/17/2023 1:55 PM NAVAL AIRCREWMAN 09/17/2023 3:55 PM NAVAL AIRCREWMAN Narrative [facility] ([place]) - 09/17/2023 4:27 PM NAVAL AIRCREWMAN These lab test should be done fasting. This means do not eat or drink for at least 12 hours prior to getting your blood drawn. Dilma Miller NP LAB BLOOD ORDERABLES Final Resu lt [facility] 1 [facility] Department [place] [address] * N. gonorrhoeae/C. trachomatis Amplification Urine (01/23/2021 11:10 AM CDT) C. trachomatis Not detected Not detected [facility] N. gonorrhoeae Not detected Not detected [facility] Comment: Testing performed by the [facility]. This assay detects Chlamydia trachomatis and Neisseria gonorrhoeae by nucleic acid amplification testing (NAAT). This test is approved by the [facility] Food and Drug Administration and the performance characteristics have been verified by the laboratory. The performance characteristics of this test have not been evaluated in women or individuals less than 16 years of age. Urine (None) 01/23/2021 11:1 0 AM CDT 01/23/2021 4:03 PM CDT Heather Mathias MD LAB MICROBIOLOGY - GENERAL O RDERABLES Final Result Performing Organization Address City/[facility]/ZIP Co de Phone Number [facility] [phone] Department [place] [address] from Last 3 Months or Most Recently Relevant to Health Maintenance Insurance [facility] [employer] OPEN ACCESS Advance Directives For more information, please contact: [phone] * Full Code (Latest Code Status on File) Date Activated Date Inactivated Comments 08/01/2024 6:01 AM 08/04/2024 6:29 PM Care Teams Addiction Medicine Physician Relationship Specialty Start Date End Date Alexander Rankin MD [address] [address] [place] [id number] PCP - General 06/16/21
[2024-12-11 19:40] VITALS: BP 123/67; PULSE 96; RESP 14; TEMP 36.4; O2SAT 100
--- NOTE | 2024-12-11 19:52 | ED_ITS ---
HPI - Eye Problem General Chief complaint: Eye Problems Stated complaint: Left Eye Swelling Source: patient Mode of arrival: ambulatory Limitations: no limitations History of Present Illness HPI Narrative: 24-year-old female presented for complaint of left upper eyelid redness, swelling, pain and itching. Onset yesterday morning. Patient does not wear contact lenses. His vision changes, eye discharge, photophobia or foreign body sensation. Denies eye injury. No treatment prior to arrival. MD chief complaint: eye pain Related Data Home Medications ?Medication ?Instructions ?Recorded ?Confirmed ?Last Taken ?Type aripiprazole 10 mg tablet 10 mg PO DAILY 04/12/22 07/13/22 Unknown History buspirone 15 mg tablet 15 mg PO DAILY 04/12/22 07/13/22 Unknown History insulin lispro 100 unit/mL 60 sliding scale dose continuous 04/12/22 07/13/22 Unknown History subcutaneous solution (Humalog subcutaneous infusion DAILY U-100 Insulin) insulin pump cart,cont inf,BT 04/12/22 04/12/22 Unknown History (Omnipod Dash Pods (Gen 4) subcutaneous cartridge) medroxyprogesterone 150 mg/mL 150 mg IM [id number] 04/12/22 07/13/22 Unknown History intramuscular syringe oxybutynin chloride 10 mg mg PO 07/21/22 Unknown History tablet,extended release 24 hr Allergies Allergy/AdvReac Type Severity Reaction Status Date / Time amoxicillin Allergy Intermediate Hives / Verified 12/11/24 19:44 Red Face Penicillins Allergy Unknown Verified 12/11/24 19:44 Review of Systems Review of Systems: CONSTITUTIONAL: Denies body aches, fever, chills EYES:Endorses swelling, redness and pain to left upper eye; Denies visual changes FB sensation, photophobia ENT: Denies rhinorrhea, congestion, sore throat, or otalgia. CARDIOVASCULAR: Denies chest pain, palpitations RESPIRATORY: Denies cough or dyspnea. GASTROINTESTINAL: Denies abdominal pain, nausea, vomiting, or diarrhea. SKIN: Denies rash, itching, or wounds. MUSCULOSKELETAL: Denies back pain, joint pain, or myalgia. NEUROLOGIC: Denies headache, numbness, tingling, or weakness. All systems reviewed & are unremarkable except as noted in HPI and below PMFSH Past Medical History Medical History (Updated 12/11/24 @ 20:03 by Mariana Monson APRN) Diabetes type I Anxiety and depression Comments At time of signature, I have reviewed and agree with nursing past medical, surgical, social and family history unless otherwise noted. Please see nursing chart for further information. There is no relevant family history pertinent to the presenting complaint Exam Narrative: GENERAL: Well-appearing HEAD: Normocephalic, atraumatic. EYES: Left upper eye lid swelling and redness c/w stye. No conjunctival injection, PERRLA EOMI. Lid eversion shows no FB. ENT: Mucous membranes pink and moist. No rhinorrhea. TMs normal bilaterally. Throat normal. Uvula midline. CHEST: Clear to auscultation. HEART: Regular rate and rhythm. ABDOMEN: Soft, nontender, nondistended SKIN: Warm, dry, no rash. Normal skin turgor. NEURO: No focal deficits. Alert and oriented x3 PSYCH: Normal affect. Course Course Emergency Course: Patient is aware of diagnosis, understands and agrees to treatment plan. Anticipatory guidance given. Patient agrees to follow-up as directed and is aware of reasons to seek care at the emergency department. Portions of this record may have been created with voice recognition software Level of Care: Express Care Visit Vital Signs Vital signs: Vital Signs Temperature 97.6 F 12/11/24 19:40 Pulse Rate 96 12/11/24 19:40 Respiratory Rate 14 12/11/24 19:40 Blood Pressure 123/67 12/11/24 19:40 Pulse Oximetry 100 12/11/24 19:40 Oxygen Delivery Room Air 12/11/24 19:40 Temperature 97.6 F 12/11/24 19:40 Pulse Rate 96 12/11/24 19:40 Respiratory Rate 14 12/11/24 19:40 Blood Pressure 123/67 12/11/24 19:40 Pulse Oximetry 100 12/11/24 19:40 Oxygen Delivery Room Air 12/11/24 19:40 MDM - Eye Problem MDM Narrative Medical decision making narrative: Discussed physical exam findings Consistent with a left upper eyelid internal hordeolum. Abx only if sx progress with supportive measures. Advised supportive measures and signs/symptoms to go to the ER. Pt is appropriate for outpt treatment and f/u. Differential Diagnosis Differential diagnosis: Likely corneal abrasion, conjunctivitis, acute iritis and other Discharge Plan Discharge Clinical Impression: Internal hordeolum of left eye Patient Disposition: Home Condition: Stable Instructions: Antibiotic Reyna Velasco (ED) Additional Instructions: Apply warm, moist compresses on the affected area frequently (for 5 to 10 mi nutes three to five times per day) in order to help with drainage. Massage and gentle wiping of the affected eyelid after the warm compress can also help with drainage. You can use baby shampoo to wash the eye area Avoid wearing eye makeup or contact lenses Take medication as directed. If the lesion does not improve within one to two weeks, please follow up with an director of infection prevention for further management. [facility] [phone] [facility] [phone] [facility] [phone] [facility] [phone] Follow up with your primary care provider as needed in 1 week Go to the ER for worsening symptoms or concerns Patient Language: Wolof Prescriptions: New doxycycline hyclate 100 mg tablet 100 mg PO BID 5 Days Qty: 10 0RF No Action oxybutynin chloride 10 mg tablet extended release 24hr PO albuterol sulfate 90 mcg/actuation HFA aerosol inhaler 2 puff inhalation QID PRN (Reason: shortness of breath or wheezing) Qty: 6.7 0RF buspirone 15 mg tablet 15 mg PO DAILY aripiprazole 10 mg tablet 10 mg PO DAILY medroxyprogesterone 150 mg/mL syringe 150 mg IM [id number] insulin lispro [Humalog U-100 Insulin] 100 unit/mL solution 60 sliding scale dose continuous subcutaneous infusion DAILY (DME) Omnipod Dash Pods (Gen 4) Cartridge SUBCUT Rx Instructions: Q 3 DAYS Follow-up/Referrals: Melody Saucedo RN [Primary Care Provider] -
== END 2024-12-11 20:11 | disposition home or self-care (01) ==
PROVIDERS: Emergency Provider Nurse Practitioner Family
DX: H00.024 Hordeolum internum left upper eyelid (principal); E10.9 Type 1 diabetes mellitus without complications; Z79.4 Long term (current) use of insulin; F41.9 Anxiety disorder, unspecified; F32.A Depression, unspecified
CPT/HCPCS: 99213; G0463

== ENCOUNTER 2025-03-25 16:45 | Emergency (ER) | payer OTHER, SELFPAY ==
--- OUTSIDE RECORDS SUMMARY | 2025-03-25 16:48 | XMS_ITS | Encounter Summary ---
Author Organization [facility] Address [address] [address] Care Team Providers Care Disk Sharpener Name Role Phone Heather Mathias MD Primary Care Provider [phone] Heather Mathias MD Primary Care Provider [phone] Reason for Visit * Reason Onset Date Comments MEDICATION REFILL 12/31/2017 Encounter Details Date Type Department Care Team (Late st Contact Info) Description 12/31/2017 Refill [facility] Pediatric[facility] - Diabetes [id number] [place] [address] [address] APRN-CUSTOMER SUCCESS MANAGER [address] [place] [id number] MEDICATION REFILL Social History Tobacco Use Types Packs/Day Years Used Date Smoking Tobacco: Never Smokeless Tobacco: Never Comments:Passive smoke expos ure Alcohol Use Standard Drinks/Week Comments Not Asked 0 (1 standard drink = 0.6 oz pur e alcohol) Comments No Sex and Gender Information Value Date Recorded Sex Assigned at Not on file Legal Sex Female 11:39 AM TANBARK LABORER Gender Identity Not on file Sexual Orientation [...] Under Investigation 07/21/2020 07/21/2020 07/21/2020 12:45 AM TANBARK LABORER documented as of this encounter Care Teams Disk Sharpener Relationship Specialty Start Date End Date Heather Mathias MD [address] [place] [address] PCP - General 11/27/10 03/18/21 Heather Mathias MD [address] [place] [address] PCP - General 03/20/21 documented as of this encounter
--- OUTSIDE RECORDS SUMMARY | 2025-03-25 16:48 | XMS_ITS | Encounter Summary ---
Author Organization [facility] Address [address] [place] [address] Care Team Providers Care Buggy Ladle Tender Name Role Phone Heather Mathias MD Primary Care Provider [phone] Heather Mathias MD Primary Care Provider [phone] Reason for Visit * Reason Onset Date Comments Question 12/22/2010 Wants to know if FMLA paperwork was completed Encounter Details Date Type Department Care Team (Late st Contact Info) Description 12/22/2010 Telephone [facility] - Diabetes [address] [address] Chikis Briggs MD Question (Wants to know [...] on file Legal Sex Female 11:39 AM NAPHTHALENE STILL OPERATOR Gender Identity Not on file Sexual Orientation Not on file documented as of this encounter Plan of Treatment Not on file documented as of this encounter Visit Diagnoses Not on filedocumented in this encounter Additional Health Concerns Infection Onset Date Last Indicated Resolved Time COVID-19 Under Investigation 07/21/2020 07/21/2020 07/21/2020 12:45 AM NAPHTHALENE STILL OPERATOR documented as of this encounter Care Teams Buggy Ladle Tender Relationship Specialty Start Date End Date Heather Mathias MD [address] [place] [address] PCP - General 11/27/10 03/18/21 Heather Mathias MD [address] [place] [address] PCP - General 03/20/21 documented as of this encounter
--- OUTSIDE RECORDS SUMMARY | 2025-03-25 16:48 | XMS_ITS | Encounter Summary ---
Author Organization [facility] Address [address] [place] [address] Care Team Providers Care Pretzel Twisting Machine Operator Name Role Phone Heather Mathias MD Primary Care Provider Encounter Details Date Type Department Care Team (Late st Contact Info) Description 04/30/2021 Telephone [facility] Pediatrics - Diabetes Mgmt [address] [place] [phone] Nicole Ralph, [address] [address] Social History Tobacco Use Types Packs/Day Years [...] on file Legal Sex Female 11:39 AM INSURANCE REPRESENTATIVE Gender Identity Not on file Sexual Orientation [...] Alfredo Worrell RN * Does person have difficulty dressing/bathing? Answer Date of Assessment Author No 03/18/2021 10:23 AM Alfredo Worrell RN * Does person have difficulty doing errands alone? Answer Date of Assessment Author No 03/18/2021 10:23 AM Alfredo Worrell RN documented as of this encounter Mental Status * Does person have difficulty concentrating/remembering/making decisions? Answer Entry Date Author No 03/18/2021 10:23 AM Alfredo Worrell RN documented in this encounter Miscellaneous Notes [...] will be alone). 's phone number is [phone]. Changed pump site at 1511 with last bolus. I spoke with Dr. Ralph - plan for to call through exchange at 1715 for updated recommendations. I spoke with and she agrees with plan. Denies any immediate concerns. documented in this encounter Plan of Treatment Not on file documented as of this encounter Visit Diagnoses Not on filedocumented in this encounter Care Teams Pretzel Twisting Machine Operator Relationship Specialty Start Date End Date Heather Mathias MD [address] [place] [address] PCP - General 03/20/21 documented as of this encounter
--- OUTSIDE RECORDS SUMMARY | 2025-03-25 16:49 | XMS_ITS | Clinical Summary ---
Author Organization [facility] Address [address] [place] [address] Phone Care Team Providers Care Batch Tank Controller Name Role Phone Lele Carrillo MD Unavailable [phone] Melody Saucedo WIRELINE SUPERVISOR, BANKING MANAGEMENT CONSULTING MANAGER Primary Care Provider Morales Torres APRN, BANKING MANAGEMENT CONSULTING MANAGER Unavailable Allergies Active Allergy Reactions Criticality Noted Date [...] 1 Tablet by mouth daily. 3 Active Glucagon (Gvoke HypoPen 2-Pack) 1 MG/0.2ML Solution Auto-injector INJECT 1 MG FOR SEVERE HYPOGLYCEMIA REQUIRING THE ASSISTANCE OF ANOTHER 3 Active Glucose 4-6 GM-MG Chewable Tablet Take 16 g by mouth. 5 12/22/19 26 Active insulin glargine (Lantus SoloStar) 100 UNIT/ML Solution Pen-injector ADMINISTER 30 UNITS UNDER THE SKIN DAILY 4 Active insulin glargine (LANTUS) 100 UNIT/ML Solution by Subcutaneous route. Active ketoconazole (NIZORAL) 2 % Shampoo Apply to wet body in the shower, leave on for 5 minutes, then rinse; daily for two weeks, then once weekly. 30 days supply 4 Active omeprazole (PriLOSEC) 10 MG CAPSULE DELAYED RELEASE 5 Active Active Problems Problem Noted Date Diagnosed Date Colitis 10/16/2024 Diabetic ketoacidosis withou t coma associated with type 1 diabetes mellitus 10/15/2024 ODILIA (acute kidney injury) 12/13/2023 Diabetic ketoacidosis associ ated with type 1 diabetes mellitus 12/13/2023 Depression 12/13/2023 Encounters Date Type Department Care Team Description 01/19/2025 12:53 AM CDT - 01/19/2025 2:46 AM CDT [facility] [address] [place] [address] Darius Jama, Hypokalemia Discharge Disposition: Discharged to home or Selfcare 01/19/2025 Telephone [facility] [place] [address] [place] [address] Lele Carrillo MD 01/19/2025 Travel 01/05/2025 1:52 AM CDT - 01/05/2025 3:52 AM CDT [facility] 1 [place] [address] Fletcher Soriano MD Nausea Discharge Disposition: Discharged to home or Selfcare 01/05/2025 Travel 01/03/2025 Results Follow-Up [facility] Neu[facility] [address] [place] [address] Lele Carrillo MD EEG AWAKE OR DROWSY ROUTINE 01/02/2025 1:00 PM CDT EEG [facility] [address] [place] [address] Lele Carrillo MD Seizures (HCC) Discharge Disposition: Discharged to home or Selfcare 01/02/2025 Travel from Last 3 Months Immunizations Immunization [...] In the past 12 months has e [employer] gas, oil, or water [id number] threatened to shut off services in your home? No 10/15/2024 Social Connection and Isolation Panel Answer Date Recorded In a typical week, how many times do you talk on the phone with family, friends, or neighbors? Patient declined 10/15/2024 How often do you get togethe r with friends or relatives? Patient declined 10/15/2024 How often do you attend nondenominational or zoroastrianism serv ices? Patient declined 10/15/2024 Do you belong to any clubs o r organizations such as nondenominational groups, unions, fraternal or athletic groups, or [...] medical care, and heating? Patient declined 10/15/2024 [facility] - Occupational Stress [...] place to sleep or slept in a prison (including now)? No 12/13/2023 Housing Stability Vital Sign Answer Marcos e Recorded In the last 12 months, was t here a time when you were not able to pay the mortgage or rent on time? No 10/15/2024 In the past 12 months, how m any times have you moved where you were living? 0 10/15/2024 At any time in the past 12 m [facility], were you homeless or living in a prison (including now)? No 10/15/2024 Sexually Active Control Partners Comments Yes None Male Comments No Sex and Gender Information Value Date Recorded Sex Assigned at Female 11/04/2023 2:43 PM CDT Legal Sex Female 10:55 PM CDT Gender Identity Female 11/04/2023 2:43 PM CDT Sexual Orientation Not on file Last Filed Vital Signs Vital Sign Reading Time Taken Comments Blood Pressure 98/58 01/19/2025 2:15 AM CDT Pulse 73 01/19/2025 2:15 AM CDT Temperature 36.7 C (98.1 F) 01/19/2025 12:58 AM CDT Respiratory Rate 22 01/19/2025 2:15 AM CDT Oxygen Saturation 96% 01/19/2025 2:15 AM CDT Inhaled Oxygen Concentration - - Weight 67.7 kg (149 lb 4 oz) 01/19/2025 12:58 AM CDT Height 154.9 cm (5' 1) 01/19/2025 12:58 AM CDT Body Mass Index 28.2 01/19/2025 12:58 AM CDT Plan of Treatment Upcoming Encounters Date Type Department Care Team (Late st Contact Info) Description 03/27/2025 10:30 AM CDT Office Visit [facility] - [facility] - [place] [address] [place] [address] Kayla Lama APRN, PRODUCT DEVELOPMENT ECOLOGIST [address] [place] [address] Health Maintenance Due Date Last Done Comments Diabetes: Celiac Disease Screening 2002 Diabetes: Eye Exam 2002 Diabetes: Foot Exam 2002 Diabetes: Lipid Screening 2002 Hepatitis C Virus (HCV) Screening 2002 Pneumococcal Immunization Combined (2 of 2 - PCV) 05/24/2013 05/24/2012, 05/29/2003, 2002, Additional history exists Meningococcal B Immunization (1 of 2 - Standard) 2018 Pap Smear 2023 SARS-COV-2 Immunization ( - season) 2024 Influenza Immunization (#1) 2025 01/0 02/2020, 05/24/2015, 05/07/2011 Diabetes: Hemoglobin A1c 05/11/2025 025, 10/15/2024, 10/15/2024, Additional history exists Diabetes: Thyroid Stimulating Hormone (TSH) Screening 10/15/2025 10/15/2024, 09/17/2022 Diabetes: Nephropathy Screening 01/19/2026 01/19/2025, 01/05/2025, 12/18/2024, Additional history exists Td Immunization Every 10 [...] Priority Date/Time Associated Diagnosis Comments POCT GLUCOSE STAT 01/19/2025 2:25 AM CDT RED TOP TUBE STAT 01/19/2025 1:01 AM CDT GOLD TOP TUBE STAT 01/19/2025 1:01 AM CDT CBC WITH AUTO DIFFERENTIAL STAT 01/19/2025 1:01 AM CDT EXTRA TUBES STAT 01/19/2025 1:01 AM CDT COMPLETE BLOOD COUNT (CBC) WITH DIFF STAT 01/19/2025 1:01 AM CDT CMP (COMPREHENSIVE METABOLIC PANEL) STAT 01/19/2025 1:01 AM CDT POCT GLUCOSE STAT 01/19/2025 12:56 AM CDT POCT GLUCOSE STAT 01/05/2025 3:38 AM CDT EKG 12 LEAD STAT 01/05/2025 2:00 AM CDT GOLD TOP TUBE STAT 01/05/2025 2:00 AM CDT BLUE TOP TUBE STAT 01/05/2025 2:00 AM CDT CBC WITH AUTO DIFFERENTIAL STAT 01/05/2025 2:00 AM CDT EXTRA TUBES STAT 01/05/2025 2:00 AM CDT CMP (COMPREHENSIVE METABOLIC PANEL) STAT 01/05/2025 2:00 AM CDT COMPLETE BLOOD COUNT (CBC) WITH DIFF STAT 01/05/2025 2:00 AM CDT POCT GLUCOSE STAT 01/05/2025 1:58 AM CDT EKG SCAN 01/05/2025 12:00 AM CDT EEG AWAKE OR DROWSY ROUTINE Routine 01/02/2025 1:00 PM CDT Seizures (HCC) HEMOGLOBIN A1C W/ ESTIMATED GLUCOSE STAT 10/15/2024 12:21 PM CDT THYROID STIMULATING HORMONE (TSH) STAT 10/15/2024 12:21 PM CDT from Last 3 Months or Most Recently Relevant to Health Maintenance Results * (ABNORMAL) POCT GLUCOSE (01/19/2025 2:25 AM CDT) Only the most recent of4 resultswithin the time period is included. [facility] GLUCOSE,BEDSID E POCT 306(H) 70 - 99 mg/dL 01/19/2025 2:32 AM CDT [facility] Comment: RN Notified MING MOORE Blood 01/19/2025 2:25 AM CDT 01/19/2025 2:32 AM CDT us None Provider POINT OF CARE TESTING Final Resu lt [facility] [address] [place] [address] * RED TOP TUBE (01/19/2025 1:01 AM CDT) Blood No Phlebotomy Charged / Unknown 01/19/2025 1:01 AM CDT 01/19/2025 1:10 AM CDT us Darius Jama DO CHEMISTRY ORDERABLES Fi nal Result [facility] [address] [place] [address] * GOLD TOP TUBE (01/19/2025 1:01 AM CDT) Only the most recent of2 resultswithin the time period is included. Blood No Phlebotomy Charged / Unknown 01/19/2025 1:01 AM CDT 01/19/2025 1:10 AM CDT us Darius Jama DO CHEMISTRY ORDERABLES Fi nal Result [facility] [address] [place] [address] * (ABNORMAL) CBC WITH AUTO DIFFERENTIAL (01/19/2025 1:01 AM CDT) Only the most recent of2 resultswithin the time period is included. WBC 13.15(H) 4.00 - 12.00 10(3)/mcL 01/19/2025 1:18 AM CDT [facility] RBC 4.52 3.80 - 5.30 10(6)/mcL 01/19/2025 1:18 AM CDT [facility] HEMOGLOBIN (HGB) 13.2 12.0 - 15.8 g/dL 01/19/2025 1:18 AM CDT [facility] HEMATOCRIT (HCT) 38.3 36.0 - 47.0 % 01/19/2025 1:18 AM CDT [facility] MCV 84.7 82.0 - 96.0 fL 01/19/2025 1:18 AM CDT [facility] MCH 29.2 26.0 - 34.0 pg 01/19/2025 1:18 AM CDT [facility] MCHC 34.5 31.0 - 36.0 g/dL 01/19/2025 1:18 AM CDT [facility] PLATELET COUNT 228 140 - 440 10(3)/mcL 01/19/2025 1:18 AM CDT [facility] RDW 12.8 11.8 - 15.5 % 01/19/2025 1:18 AM CDT [facility] MPV 10.9 9.7 - 12.4 fL 01/19/2025 1:18 AM CDT [facility] NEUTROPHILS 73.2(H) 47.0 - 73.0 % 01/19/2025 1:18 AM CDT [facility] LYMPHOCYTES 20.8 18.0 - 42.0 % 01/19/2025 1:18 AM CDT [facility] MONOCYTES 4.8 4.0 - 12.0 % 01/19/2025 1:18 AM CDT [facility] EOSINOPHILS 0.8 0.0 - 5.0 % 01/19/2025 1:18 AM CDT [facility] BASOPHILS 0.4 0.0 - 1.0 % 01/19/2025 1:18 AM CDT [facility] ABSOLUTE NEUTROPHILS 9.63(H) 1.60 - 7.70 10(3)/[facility] 01/19/2025 1:18 AM CDT [facility] ABSOLUTE LYMPHOCYTES 2.74 1.30 - 3.20 10(3)/[facility] 01/19/2025 1:18 AM CDT [facility] ABSOLUTE MONOCYTES 0.63 0.20 - 1.00 10(3)/[facility] 01/19/2025 1:18 AM CDT [facility] ABSOLUTE EOSINOPHIL 0.10 0.00 - 0.40 10(3)/[facility] 01/19/2025 1:18 AM CDT [facility] ABSOLUTE BASOPHILS 0.05 0.00 - 0.10 10(3)/[facility] 01/19/2025 1:18 AM CDT [facility] NRBC PER 100 WBC 0 01/20/20 1:18 AM CDT [facility] Blood Venipuncture / Unknown 01/19/2025 1:01 AM CDT 01/19/2025 1:16 AM CDT us Darius Jama DO HEMATOLOGY ORDERABLES F inal Result [facility] [address] [place] [address] * (ABNORMAL) CMP (COMPREHENSIVE METABOLIC PANEL) (01/19/2025 1:01 AM CDT) Only the most recent of2 resultswithin the time period is included. SODIUM 135(L) 136 - 145 mmol/L 01/19/2025 1:31 AM CDT [facility] POTASSIUM 3.1(L) 3.5 - 5.1 mmol/L 01/19/2025 1:31 AM CDT [facility] CHLORIDE 105 98 - 107 mmol/L 01/19/2025 1:31 AM CDT [facility] CO2, VENOUS 16(L) 22 - 30 mmol/L 01/19/2025 1:31 AM CDT [facility] ANION GAP 17.1 <18.0 mmol/L 01/19/2025 1:31 AM CDT [facility] GLUCOSE 392(H) 70 - 99 mg/dL 01/19/2025 1:31 AM CDT [facility] BUN 13 5 - 18 mg/dL 01/19/2025 1:31 AM CDT [facility] CREATININE, BLOOD 0.73 0.60 - 1.00 mg/dL 01/19/2025 1:31 AM CDT [facility] BUN/CREATININE RATIO 18 12 - 20 ratio 01/19/2025 1:31 AM CDT [facility] TOTAL PROTEIN 6.8 6.0 - 8.0 g/dL 01/19/2025 1:31 AM CDT [facility] ALBUMIN 4.0 3.5 - 5.0 g/dL 01/19/2025 1:31 AM CDT [facility] A/G RATIO 1.4 1.0 - 2.2 01/19/2025 1:31 AM CDT [facility] CALCIUM 8.4(L) 8.7 - 10.5 mg/dL 01/19/2025 1:31 AM CDT [facility] T BILI 0.6 0.2 - 1.2 mg/dL 01/19/2025 1:31 AM CDT [facility] SGOT (AST) 14 <43 U/L 01/19/2025 1:31 AM CDT [facility] SGPT (ALT) <6 <56 U/L 01/19/2025 1:31 AM CDT [facility] ALKALINE PHOSPHATASE 74 40 - 150 U/L 01/19/2025 1:31 AM CDT [facility] GFR, ESTIMATED >60 >=60 01/19/2025 1:31 AM CDT [facility] Comment: Creatinine Clearance is the preferred criteria for selecting drug dose adjustments in renally impaired patients. The GFR is provided as additional pertinent clinical information. GFR is reported in mL/min/1.73 sq m. Calculation based on the Chronic Kidney Disease Epidemiology Collaboration (CKD- EPI) equation refit without adjustment for race. GFR, EST. >60 >=60 025 1:31 AM CDT [facility] GFR, EST. NONAFRICAN >60 >=60 01/19/2025 1:31 AM CDT [facility] Blood Venipuncture / Unknown 01/19/2025 1:01 AM CDT 01/19/2025 1:16 AM CDT us Darius Jama DO CHEMISTRY ORDERABLES Fi nal Result [facility] [address] [place] [address] * EKG 12 LEAD (01/05/2025 2:00 AM CDT) Ventricular Rate 72 BPM EXTERNAL EKG Atrial Rate 72 BPM EXTERNAL EKG P-R Interval 148 ms EXTERNAL EKG QRS Duration 80 ms EXTERNAL EKG Q-T Duration 396 ms EXTERNAL EKG QTC CALCULATION 433 ms EXTERNAL EKG P [place] 43 degrees EXTERNAL EKG R [place] 14 degrees EXTERNAL EKG T [place] 30 degrees EXTERNAL EKG 01/05/2025 2:00 AM CDT Impressions EXTERNAL EKG - 01/05/2025 9:44 AM CDT Normal sinus rhythm with sinus arrhythmia Normal ECG When compared with ECG of 15-MAY-2024 12:43, No significant change was found Confirmed by HEATH BARDALES ([id number]) on 01/05/2025 9:44:49 AM Narrative Procedure Note Heath Bardales MD - 01/05/2025 IMPRESSION: Normal sinus rhythm with sinus arrhythmia Normal ECG When compared with ECG of 15-MAY-2024 12:43, No significant change was found Confirmed by HEATH BARDALES ([id number]) on 01/05/2025 9:44:49 AM us Fletcher Soriano MD IMG ECG ORDERABLES Final R esult Performing Organization Address City[facility] Co de Phone Number EXTERNAL EKG * BLUE TOP TUBE (01/05/2025 2:00 AM CDT) Blood No Phlebotomy Charged / Unknown 01/05/2025 2:00 AM CDT 01/05/2025 2:31 AM CDT Fletcher Soriano MD HEMATOLOGY ORDERABLES Lynn l Result Performing Organization Address City/[facility]/ZIP Co de Phone Number [facility] [address] [place] [address] * EKG SCAN (01/05/2025 12:00 AM CDT) 01/05/2025 us Provider Scan IMG ECG ORDERABLES Final Result RESULTING AGENCY * EEG AWAKE OR DROWSY ROUTINE (01/02/2025 1:00 PM CDT) Narrative Lele Carrillo MD - 01/02/2025 1:00 PM CDT Lele Carrillo MD 01/02/2025 4:45 PM Electroencephalography Date of EE01/02/25 Clinical History: The patient is a 24 year old female who has been experiencing episodes of seizure. EEG Description: This EEG was recorded on a Lorin with 18 cranial leads and an EKG. The International 10-20 system was used for electrode placement. Background: The recording was done during wakefulness, drowsiness and sleep. There was a normal 10 hz posterior dominant rhythm, with a normal posterior to anterior gradient. Sleep: Normal sleep architecture noted including sleep spindles, posts and vertex waves. Activation Procedures: Photic stimulation shows good driving. Hyperventilation produced no epileptic discharges. Epileptic Discharges: No epileptic discharges noted. Interpretation: This is a normal EEG during wakefulness, drowsiness and sleep. No epileptic discharges were seen. A normal EEG does not rule seizure and clinical correlation is recommended. us Lele Carrillo MD NEUROLOGY ORDERABLES Final R esult * (ABNORMAL) HEMOGLOBIN A1C W/ ESTIMATED GLUCOSE (10/15/2024 12:21 PM CDT) Pathologist [facility] HGB-A1C 10.2(H) 4.0 - 6.0 % 10/15/2024 2:06 PM CDT [facility] Est Average Glucose 246.0 mg/dL 10/15/2024 2:06 PM CDT [facility] Blood Venipuncture / Unknown 10/15/2024 12:21 PM CDT 10/15/2024 12:37 PM CDT Narrative [facility] - 10/15/2024 2:06 PM CDT HEMOGLOBIN A1C: DIABETIC PATIENTS: WELL-CONTROLLED: 6.2 - 7.0 INTERMEDIATE WELL-CONTROLLED: 7.0 - 9.0 POORLY-CONTROLLED: >9.0 Specimens containing greater than 5% of Hemoglobin F may result in lower than expected % HbA1C results. us Ying Carter MD CHEMISTRY ORDERABLES Final Re sult [facility] [address] [place] [address] * THYROID STIMULATING HORMONE (TSH) (10/15/2024 12:21 PM CDT) TSH 0.606 0.300 - 5.000 mIU/L 10/15/2024 5:59 PM CDT [facility] Blood Venipuncture / Unknown 10/15/2024 12:21 PM CDT 10/15/2024 12:37 PM CDT us Luciano Terry MD CHEMISTRY ORDERABLES Final Re sult [facility] [place] [address] from Last 3 Months or Most Recently Relevant to Health Maintenance Insurance MEDICAID [employer] Advance Directives * Full Code (Latest [...] measures to stabilize the patient. Care Teams Batch Tank Controller Relationship Specialty Start Date End Date Melody Saucedo, WIRELINE SUPERVISOR, BANKING MANAGEMENT CONSULTING MANAGER [address] [place] [address] PCP - General Advanced Practice Nurse 12/18/24 Lele Carrillo MD [address] [place] [address] Consulting Physician Neurology 06/26/22 Morales Torres, WIRELINE SUPERVISOR, BANKING MANAGEMENT CONSULTING MANAGER [address] [place] [address] Nurse Practitioner Advanced Practice Nurse 02/01/25
--- OUTSIDE RECORDS SUMMARY | 2025-03-25 16:49 | XMS_ITS | Encounter Summary ---
Author Organization [facility] Address [address] [place] [address] Care Team Providers Care Orthotist Or Prosthetist Name Role Phone Heather Mathias MD Primary Care Provider [phone] Heather Mathias MD Primary Care Provider [phone] Encounter Details Date Type Department Care Team (Late st Contact Info) Description 07/12/2020 Telephone [facility] Endocr[facility]ology [address] [place] [address] Nicole Ralph, DO [address] [place] [address] Social History Tobacco Use Types Packs/Day Years [...] on file Legal Sex Female 11:39 AM DERRICK OPERATOR Gender Identity Not on file Sexual [...] Krys Murillo RN - 07/23/2020 10:48 AM DERRICK OPERATOR Diabetes Sick Call Patient: Emma Guidry Date: [...] was hesitant to take her to local but [facility] 45-60 minutes from their home. I again reiterated that I advise to take to local ER. Also advised to dose another 5 units via syringe and change pump site. Mother stated she was bringing to . I asked her to call 911 en route if she worsened. She agreed. ICK OPERATOR * Telephone Encounter - Krys Murillo RN - 07/16/2020 8:26 AM DERRICK OPERATOR Received denial from [employer] for OneTouch meter. Strips going through insurance fine. Pt has appt 07/18. Will have them take meter home. Attempted to call and discuss. No answer. ' ICK OPERATOR * Telephone Encounter - Nicole Ralph, DO - 07/12/2020 6:35 AM DERRICK OPERATOR Mom called back through the exchange. 's [...] if possible to be assessed for illness. ICK OPERATOR * Telephone Encounter - Nicole Ralph, - 07/12/2020 3:27 AM DERRICK OPERATOR Mom called back through the exchange. still [...] feeling low. Call back if not improving. ICK OPERATOR * Telephone Encounter - Nicole Ralph, - 07/12/2020 12:47 AM DERRICK OPERATOR Mom called through the exchange due to [...] not decreased. Go to ER if vomiting. ICK OPERATOR documented in this encounter Plan of Treatment Not on file documented as of this encounter Visit Diagnoses Not on filedocumented in this encounter Additional Health Concerns Infection Onset Date Last Indicated Resolved Time COVID-19 Under Investigation 07/21/2020 07/21/2020 07/21/2020 12:45 AM DERRICK OPERATOR documented as of this encounter Care Teams Orthotist Or Prosthetist Relationship Specialty Start Date End Date Heather Mathias MD [address] [place] [address] PCP - General 11/27/10 03/18/21 Heather Mathias MD [address] [place] [address] PCP - General 03/20/21 documented as of this encounter
--- OUTSIDE RECORDS SUMMARY | 2025-03-25 16:49 | XMS_ITS | Encounter Summary ---
Author Organization [facility] Address [address] [place] [address] Care Team Providers Care Combination Worker Name Role Phone Heather Mathias MD Primary Care Provider [phone] Heather Mathias MD Primary Care Provider [phone] Encounter Details Date Type Department Care Team (Late st Contact Info) Description 07/29/2020 Telephone [facility] Pediatrics - Endocrinology [address] [place] [address] [address], SUPERVISOR TREE TRIMMING-DIRECTOR BUSINESS TRAVEL [address] [place] [id number] Social History Tobacco Use Types Packs/Day Years [...] on file Legal Sex Female 11:[address] RUNNER Gender Identity Not on file Sexual Orientation Not on file documented as of this encounter Functional Status * Is person deaf or have serious hearing difficulty? Answer Date of Assessment Author No 07/23/2020 5:27 PM Alfredo Jurado RN * Is person blind or have serious difficulty seeing? Answer Date of Assessment Author No 07/23/2020 5:[address] MACHINE RUNNER Alfredo Feliz RN * Does person have serious difficulty walking/climbing stairs? Answer Date of Assessment Author No 07/23/2020 5:[address] MACHINE RUNNER Alfredo Feliz RN * Does person have difficulty dressing/bathing? Answer Date of Assessment Author No 07/23/2020 5:[address] MACHINE RUNNER Alfredo Feliz RN * Does person have difficulty doing errands alone? Answer Date of Assessment Author No 07/23/2020 5:27 PM Alfredo Jurado RN documented as of this encounter Mental Status * Does person have difficulty concentrating/remembering/making decisions? Answer Entry Date Author No 07/23/2020 5:27 PM Alfredo Jurado RN documented in this encounter Miscellaneous Notes * Telephone Encounter - Shalonda Schaefer, RN - 07/29/2020 2:21 PM CST I reached out to and her mom to review blood sugars post DKA admission. [phone]. No answer, LMOM. MACHINE RUNNER documented in this encounter Plan of Treatment Not on file documented as of this encounter Visit Diagnoses Not on filedocumented in this encounter Care Teams Combination Worker Relationship Specialty Start Date End Date Heather Mathias MD [address] [place] [address] PCP - General 11/27/10 03/18/21 Heather Mathias MD [address] [place], [place] [address] PCP - General 03/20/21 documented as of this encounter
--- OUTSIDE RECORDS SUMMARY | 2025-03-25 16:49 | XMS_ITS | Clinical Summary ---
Author Organization [facility] Address [address] [place] [address] Care Team Providers Care Sign Writer Letterer Or Painter Name Role Phone Heather Mathias MD Primary Care Provider [phone] Source Comments [facility],non-owned Affiliates and Associated Physician Practices is amultiple site organization consisting of ambulatory clinics and hospital sitesin [place], [place], [place] and [place]. This disclosure is being madepursuant to the Care Everywhere program and may not contain all information available regarding this patient. Last updated 18.[facility] Allergies Active Allergy Reactions Criticality Noted Date [...] injections 4-6 times daily. 600 Each 3 11/30/2 017 Active Additional Information Patient not taking.Reported on 02/01/2021 Blood Glucose Calibration (PRODIGY CONTROL SOLUTION) LOW SOLNIndications :Type 1 diabetes mellitus without complication (HCC) 1 vial by In Vitro route as directed 1 Each 3 Active Additional Information Patient not taking.Reported on 02/01/2021 fluticasone propionate (FLONASE) 50 MCG/ACT nasal spray Use on skin and allow to dry prior to placing pump site. 1 bottles 5 Active Insulin Syringe-Needle U-100 (BD INSULIN SYRINGE [...] Patient not taking.Reported on 02/01/2021 blood glucose (ONETOUCH ULTRA) test strip Use to test blood [...] Active Continuous Glucose Sensor (Dexcom G6 Sensor) [facility] [place] glucose (Dex4) 4 g chew tablet TAKE 4 TABLETS BY MOUTH NEEDED FOR LOW BLOOD SUGAR Active Glucagon (Gvoke HypoPen 2-Pack) 1 MG/0.2ML SOAJ INJECT 1 MG FOR SEVERE HYPOGLYCEMIA REQUIRING THE ASSISTANCE OF ANOTHER 023 Active Insulin Disposable Pump (Omnipod 5 G6 Pods, Gen 5,) [facility] ANAYA POD EVERY 3 DAYS FOR 90 [...] weekly. 30 days supply 120 mL 3 024 Active oxyBUTYnin CR 24hr (Ditropan-XL) 10 MG [...] continue on general pediatrics, Dr. Hills - dc IVF due to good PO intake - [...] 07/23/2020 Assessment & Plan (07/24/2020 1:06 PM SAILING OFFICER): Assessment: Simone is a 20 year old [...] x2 Assessment & Plan (07/24/2020 1:03 PM SAILING OFFICER): Assessment: Simone is a 20 year old [...] x2 Assessment & Plan (07/23/2020 6:13 PM SAILING OFFICER): Assessment: Simone is a 20 year old female with known DM1 who presents with vomiting, abdominal pain, and Kussmaul breathing . Labs and hx consistent with severe DKA (Bicarb 5, Glucose 479). Recent UTI diagnosed 07/20, continuing abx therapy . Will continue to monitor and work-up abdominal pain as DKA improves, ddx includes UTI vs pyelo vs PID Plan: - admit to EndocrineDr. Ralph FEN/GI/ENDO: - NPO - IV per [...] abdominal pain, and Kussmaul breathing, recently left AMA from [facility]. Labs and hx consistent with severe [...] and 2 bag IVF. Plan: Admit to EndocrinologyDr. Ralph - Insulin gtt with 2 bag [...] 9:41 AM CDT): 1) need to contact [facility] for upgrade to x2 with control iq 2) dose for carbs 3) call as needed to review glucose levels Assessment & Plan (08/30/2020 8:52 AM SAILING OFFICER): 1) no changes at this time 2) [...] months Assessment & Plan (08/15/2019 11:06 AM SAILING OFFICER): 1) must resume bolusing before you eat [...] Briggs Assessment & Plan (10/13/2016 1:17 PM SAILING OFFICER): 1) increase daytime basal to 1.8 units [...] 5) return for Dr. Briggs Assessment & Plan (01/04/2015 2:45 PM CDT): 1) Increase lantus to 37 units 2) increase lunch and dinner to 1:5 3) attend next pump class 4) call as needed to review blood sugars 5) any multivitamin is fine 6) return in 3 months for britt, [address] Briggs Assessment & Plan (08/24/2014 1:15 PM SAILING OFFICER): 1) increase breakfast to 1 per 4 2) increase Lantus to 35 3) call in blood sugars in 1 week to [phone] option 4 4) return in 3 months [...] in blood sugars in one week to [phone] option 4 4) return in 3-4 months for Britt and [address] Briggs Assessment & Plan (07/24/2013 1:12 PM SAILING OFFICER): 1) increase Lantus to 23 units 2) increase breakfast to 1:6 3) increase correction to 1 per 50 over 150 4) call in blood sugars in 1 week to [phone] option 4 5) return in 3-4 months for Britt Retained myringotomy tube Immunizations Immunization Administration Dates Next Due INFLUENZA [...] on file Legal Sex Female 11:39 AM SAILING OFFICER Gender Identity Not on file Sexual Orientation [...] 1:04 PM CDT Height 154.9 cm (5' 1) 06/12/2021 1:04 PM CDT Body Mass Index 24.56 06/12/2021 1:04 PM CDT Plan of Treatment Health Maintenance Due Date Last Done Comments DIABETES RETINOPATHY SCREENING 11/02/2013 HIV SCREENING 2017 [...] PCV) 2021 CHLAMYDIA/GONORRHEA SCREENING 07/23/2021 07/23/2020, 05/05/2020 PAP SMEAR 2023 DIABETES-HGB A1C 03/22/2024 12/21/2023, 01/2024, 07/02/2023, Additional history exists COVID-19 VACCINE (1 - 2023- season) 2024 DEPRESSION SCREENING 08/09/2024 DIABETES - URINE PROTEIN SCREENING 08/09/2024 04/09/2020, 04/07/2018, 04/15/2017, Additional history exists DIABETES-SERUM CREATININE 12/12/20242023, 12/13/2023, 12/13/2023, Additional history exists INFLUENZA VACCINE (#1) 2025 , 05/24/2015, 05/31/2013, Additional history exists ZOSTER VACCINE (1 of 2) 02/29/2052 HIB VACCINE Aged Out No longer eligi ble based on patient's age to complete this topic MENINGOCOCCAL GROUPS A/C/Y/W VACCINE Aged Out No longer eligible based on patient's age to complete this topic Medical Devices Implanted Type Area Cook Helper Meat Device Identifier Shelf Expiration Date Model / Serial / Lot Log [id number] - Tympanostomy Tubes Dave - 1 - Tube Vent Triune Silicon 1.35mm X 5.0mm Implanted:Qty: 2 on 07/11/2012 at [facility] Bilateral : [employer] 10/07/2016 [id number] / / [id number] Tube Vent Paprella W/Silicon Type 1 Tab Implanted:Qty: 2 on 11/13/2013 by Eve Berger MD at [facility] Bilateral : [employer] 09/08/2017 [id number] / / [id number] Procedures Procedure Name Priority Date/Time Associated Diagnosis Comments BASIC METABOLIC PANEL (CALCIUM TOTAL) Timed 03/19/2021 12:26 AM CDT HEMOGLOBIN A1C Routine 03/18/2021 9:08 PM CDT CHLAMYDIA + GC AMPLIFIED PROBE STAT 07/23/2020 1:14 PM SAILING OFFICER MICROALB/CREAT RATIO URINE RANDOM PANEL Routine 04/09/2020 11:23 AM CDT Type 1 diabetes mellitus without complication from Last 3 Months or Most Recently Relevant to Health Maintenance Results * (ABNORMAL) BASIC METABOLIC PANEL (CALCIUM TOTAL) (03/19/2021 12:26 AM CDT) BUN 5(L) 7 - 26 mg/dL 03/19/2021 1:17 AM [facility] Creatinine 0.52(L) 0.56 - 0.96 mg/dL 03/19/2021 1:17 AM [facility] Sodium 137 136 - 145 mmol/L 03/19/2021 1:17 AM [facility] Potassium 2.7(LL) 3.5 - 4.5 mmol/L 03/19/2021 1:17 AM [facility] Chloride 114(H) 98 - 107 mmol/L 03/19/2021 1:17 AM [facility] CO2 17(L) 22 - 29 mmol/L 03/19/2021 1:17 AM [facility] Glucose 172(H) 70 - 115 mg/dL 03/19/2021 1:17 AM [facility] Calcium 8.4 8.4 - 10.2 mg/dL 03/19/2021 1:17 AM [facility] Anion Gap 9 8 - 18 03/19/2021 1:17 AM CDT [facility] BUN/Creatinine Ratio 10 7 - 23 03/19/2021 1:17 AM [facility] Osmolality Calculated 285 270 - 300 mOsm/kg 03/19/2021 1:17 AM [facility] eGFR by CKD-EPI >90 >=90 mL/min/1.7 3 m2 03/19/2021 1:17 AM [facility] Blood BLOOD SPECIMEN / Unknown Lab Venipuncture / Unknown 03/19/2021 12:26 AM CDT 03/19/2021 12:39 AM CDT us Nicole Ralph DO LAB - CHEMISTRY ORDERABLES Final Result [facility] [address] [place] [address], [facility] [phone] * (ABNORMAL) HEMOGLOBIN A1C (03/18/2021 9:08 PM CDT) Hemoglobin A1c 10.1(H) 4.4 - 6.3 % 03/19/2021 9:35 AM [facility] Estimated Average Glucose 243 mg/dL 03/19/2021 9:35 AM [facility] Comment: HbA1c Interpretation: Treatment target values recommended by ADA and other clinical organizations should be used to evaluate metabolic control in patients. Treatment Target Values: Normal : < 5.7% Pre-diabetes: 5.7-6.4% Diabetes: Equal to or greater than 6.5% Reference: [place] Diabetes Association Standards of Care in Diabetes -2014 In patients 70 years and older consider HbA1c target range of 7.0-7.5% Reference: Diabetes Mellitus in Older People: Position Statement on behalf of the International Association of Gerontology and Geriatrics (IAGG), the Diabetes Working Democrat for Older People (EDWPOP), and the International Task Force of Experts in Diabetes. Clayton Kerns et al. J [place] Medical Directors Association. 2012 Test results diagnostic of diabetes should be repeated for confirmation. The Sebia Capillary 2 assay for the measurement of HbA1c is a National Glycohemoglobin Standardization Program (NGSP)certified method. Blood BLOOD SPECIMEN / Unknown Lab Venipuncture / Unknown 03/18/2021 9:08 PM CDT 03/18/2021 9:17 PM CDT us Nicole Ralph DO LAB - CHEMISTRY ORDERABLES Final Result [facility] [address] [place] [address], [facility] [phone] * CHLAMYDIA + GC AMPLIFIED PROBE (STL) (07/23/2020 1:14 PM SAILING OFFICER) Chlamydia Amplified Probe Negative Negative 07/24/2020 1:44 PM SAILING OFFICER [facility] GC Amplified Probe Negative Negative 07/24/2020 1:44 PM SAILING OFFICER [facility] Microbiology URINE / Unknown Collection / Unknown 07/23/2020 1:14 PM SAILING OFFICER 07/23/2020 1:16 PM SAILING OFFICER Narrative [facility] - 07/24/2020 1:44 PM SAILING OFFICER Results based on detection/no detection of ribosomal RNA by amplified method. us Kodak Sweeney MD LAB - MICROBIOLOGY ORDERABLES Final Result Performing Organization Address [facility] Co de Phone Number [facility] [address] [place] [address], [facility] [phone] * (ABNORMAL) MICROALB/CREAT RATIO URINE RANDOM PANEL (04/09/2020 11:23 AM CDT) Creatinine Urine 38.46 mg/dL 04/09/20 20 12:27 PM CDT [facility] Microalbumin Urine 1.3 <1.7 mg/dL 04/09/2020 12:27 PM CDT [facility] Microalbumin/Crea tinine Ratio 34(H) <30 mg/g 04/09/2020 12:27 PM CDT [facility] Urine URINE SPECIMEN OBTAINED BY CLEAN CATCH PROCEDURE / Unknown Collection / Unknown 04/09/2020 11:23 AM CDT 04/09/2020 11:51 AM CDT us Chikis Briggs MD LAB - URINE CHEMISTRY ORDERABLE S Final Result [facility] [place] [address] from Last 3 Months or Most Recently Relevant to Health Maintenance Insurance MEDICAID - OUT OF STATE AETNA [facility] AETNA AETNA [facility] Address: [address] [facility] [place] [address] MEDICAID - OUT OF STATE [facility] AETNA Advance Directives * Full Code [...] 12:40 AM 05/24/2020 9:31 PM Care Teams Sign Writer Letterer Or Painter Relationship Specialty Start Date End Date Heather Mathias MD [address] [place] [address] [facility] - General 03/20/21
--- OUTSIDE RECORDS SUMMARY | 2025-03-25 16:49 | XMS_ITS | Encounter Summary ---
Author Organization [facility] Address [address] [place] [address] Care Team Providers Care Permit Review Assistant Name Role Phone Heather Mathias MD Primary Care Provider [phone] Heather Mathias MD Primary Care Provider [phone] Encounter Details Date Type Department Care Team (Late st Contact Info) Description 07/25/2020 Telephone [facility] Pediatric[facility] - Endocrinology [address] [place] [address] [address], SUPERVISOR FUNCTIONAL TESTING-HEAD OF OPERATION AND LOGISTICS [address] [place] [address] Social History Tobacco Use Types Packs/Day Years [...] on file Legal Sex Female 11:39 AM MOTORCYCLE BUILDER Gender Identity Not on file Sexual Orientation Not on file documented as of this encounter Functional Status * Is person deaf or have serious hearing difficulty? Answer Date of Assessment Author No 07/23/2020 5:27 PM MOTORCYCLE BUILDER Alfredo Feliz RN * Is person blind or have serious difficulty seeing? Answer Date of Assessment Author No 07/23/2020 5:27 PM MOTORCYCLE BUILDER Alfredo Feliz RN * Does person have serious difficulty walking/climbing stairs? Answer Date of Assessment Author No 07/23/2020 5:27 PM MOTORCYCLE BUILDER Alfredo Feliz RN * Does person have [...] Maryann Guy RN - 07/25/2020 11:29 AM MOTORCYCLE BUILDER I followed up with Teresa to check on dexcom status. Per tech, prescriptions have been sent to [facility] per insurance rep request ([phone]). I called mom to update her on status. She states she will call [facility] to follow up. Mom also reports she needs work/school excuse letters for dates she was seen at the hospital. She states she will call back with fax numbers for each so we can send them. RCYCLE BUILDER documented in this encounter Plan of Treatment Not on file documented as of this encounter Visit Diagnoses Not on filedocumented in this encounter Care Teams Permit Review Assistant Relationship Specialty Start Date End Date Heather Mathias MD [address] [place] [address] PCP - General 11/27/10 03/18/21 Heather Mathias MD [address] [place] [address] PCP - General 03/20/21 documented as of this encounter
[2025-03-25 16:50] VITALS: BP 109/62; PULSE 84; RESP 16; TEMP 36.6; O2SAT 99
--- OUTSIDE RECORDS SUMMARY | 2025-03-25 16:50 | XMS_ITS | Encounter Summary ---
Author Organization [facility] Address [address] [place] [address] Care Team Providers Care Manager Employee Benefits Name Role Phone Heather Mathias MD Primary Care Provider [phone] Heather Mathias MD Primary Care Provider [phone] Reason for Visit * Reason Comments Refill Request Encounter Details Date Type Department Care Team (Late st Contact Info) Description 03/04/2020 Refill [facility] - Diabetes [address] [address] Chikis Briggs MD Refill Request Social History [...] on file Legal Sex Female 11:39 AM WOOL HAT FORMING MACHINE TENDER Gender Identity Not on file Sexual Orientation [...] Under Investigation 07/21/2020 07/21/2020 07/21/2020 12:45 AM WOOL HAT FORMING MACHINE TENDER documented as of this encounter Care Teams Manager Employee Benefits Relationship Specialty Start Date End Date Heather Mathias MD [address] [place] [address] PCP - General 11/27/10 03/18/21 Heather Mathias MD [address] [place] [address] PCP - General 03/20/21 documented as of this encounter
--- OUTSIDE RECORDS SUMMARY | 2025-03-25 16:50 | XMS_ITS | Encounter Summary ---
Author Organization [facility] Address [address] [place] [address] Care Team Providers Care Store Manager Name Role Phone Heather Mathias MD Primary Care Provider [phone] Heather Mathias MD Primary Care Provider [phone] Reason for Visit * Reason Onset Date Comments MEDICATION REFILL 03/22/2020 Encounter Details Date Type Department Care Team (Late st Contact Info) Description 03/22/[address] [facility] Pediatric[facility] - Endocrinology [address] [place] [address] Chikis Briggs MD MEDICATION REFILL Social History [...] on file Legal Sex Female 11:39 AM COLLECTION OFFICER Gender Identity Not on file Sexual [...] Under Investigation 07/21/2020 07/21/2020 07/21/2020 12:45 AM COLLECTION OFFICER documented as of this encounter Care Teams Store Manager Relationship Specialty Start Date End Date Heather Mathias MD [address] [place] [address] PCP - General 11/27/10 03/18/21 Heather Mathias MD [address] [place], [place] [address] PCP - General 03/20/21 documented as of this encounter
--- OUTSIDE RECORDS SUMMARY | 2025-03-25 16:50 | XMS_ITS | Encounter Summary ---
Author Organization [facility] Address [address] [place] [address] Care Team Providers Care Back Tender Fourdrinier Name Role Phone Heather Mathias MD Primary Care Provider [phone] Heather Mathias MD Primary Care Provider [phone] Encounter Details Date Type Department Care Team (Late st Contact Info) Description 01/06/2019 Telephone [facility] Pediatrics - Diabetes [address] [address] [address], CLERICAL WAREHOUSEMAN-TEAM TRUCK DRIVER [address] [place] [phone] Social History Tobacco Use Types Packs/Day Years Used Date Smoking Tobacco: Never Smokeless Tobacco: Never Comments:Passive smoke expos ure Alcohol Use Standard Drinks/Week Comments Not Asked 0 (1 standard drink = 0.6 oz pur e alcohol) Comments No Sex and Gender Information Value Date Recorded Sex Assigned at Not on file Legal Sex Female 11:39 AM KNOT BUMPER Gender Identity Not on file Sexual Orientation Not on file documented as of this encounter Miscellaneous Notes * Telephone Encounter - Nicole Ralph, DO - 01/07/2019 10:11 AM CDT Mom called [...] Under Investigation 07/21/2020 07/21/2020 07/21/2020 12:45 AM KNOT BUMPER documented as of this encounter Care Teams Back Tender Fourdrinier Relationship Specialty Start Date End Date Heather Mathias MD [address] [place] [address] PCP - General 11/27/10 03/18/21 Heather Mathias MD [address] [place] [address] PCP - General 03/20/21 documented as of this encounter
--- OUTSIDE RECORDS SUMMARY | 2025-03-25 16:50 | XMS_ITS | Clinical Summary ---
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 interpretive data was last reviewed 2021. Blood 03/07/2025 8:47 PM CDT 03/07/2025 9:11 PM CDT us Mari Wiseman NP LAB BLOOD ORDERABLES Fin al Result [facility] [place] [address] * (ABNORMAL) CBC without differential (03/07/2025 8:47 PM CDT) [facility] WBC 10.71(H) 3.80 - 9.90 K/cumm Hgb 13.2 11.9 - 15.5 g/dL [facility] Hct 37.4 35.6 - 45.5 % [facility] Plt 202 150 - 400 K/cumm [facility] MPV 11.2 9.1 - 12.3 fL [facility] RBC 4.48 3.90 - 5.20 M/cumm [facility] MCV 83.5 81.3 - 96.4 fL [facility] MCH 29.5 27.1 - 33.3 pg [facility] MCHC 35.3 32.3 - 35.7 g/dL [facility] RDW CV 12.9 11.1 - 14.9 % [facility] RDW SD 39.1 35.7 - 48.1 fL [facility] NRBC abs 0.00 0.00 - 0.01 K/cumm [facility] Blood 03/07/2025 8:47 PM CDT 03/07/2025 9:11 PM CDT Mari Wiseman CENTRAL SUPPLY TECHNICIAN LAB BLOOD ORDERABLES Fin al Result Performing Organization Address [facility] Co de Phone Number [facility] [place] [address] * Phosphorus (03/07/2025 8:47 PM CDT) Phosphorus, pl 2.4 2.3 - 4.5 mg/dL Blood 03/07/2025 8:47 PM CDT 03/07/2025 9:11 PM CDT Mari Wiseman CENTRAL SUPPLY TECHNICIAN LAB BLOOD ORDERABLES Fin al Result Performing Organization Address [facility] de Phone Number [facility] [place] [address] * Magnesium (03/07/2025 8:47 PM CDT) Pathologist [facility] Magnesium 1.8 1.4 - 2.5 mg/dL Blood 03/07/2025 8:47 PM CDT 03/07/2025 9:11 PM CDT Mari Wiseman CENTRAL SUPPLY TECHNICIAN LAB BLOOD ORDERABLES Fin al Result Performing Organization Address [facility] de Phone Number [facility] [place] [address] * (ABNORMAL) Comprehensive metabolic panel (03/07/2025 8:47 PM CDT) Sodium 141 135 - 145 mmol/L Potassium, pl 4.0 3.3 - 4.9 mmol/L [facility] Comment:Hemolyzed; Potassium value may be falsely elevated by as much as 0.3-0.5 mmol/L. Suggest redraw and reanalysis. Chloride 106 97 - 110 mmol/L [facility] CO2 22 22 - 32 mmol/L [facility] Anion gap 13 2 - 15 mmol/L [facility] BUN 6 6 - 25 mg/dL [facility] Creatinine 0.53(L) 0.60 - 1.10 mg/dL [facility] Glucose 166 70 - 199 mg/dL [facility] Comment: Interpretive Data Fasting glucose >/= 126 mg/dl is diagnostic for diabetes. Fasting is defined as no caloric intake for at least 8 hours. Fasting glucose between 100 mg/dl to 125 mg/dl is diagnostic of prediabetes. In a patient with classic symptoms of hyperglycemia or hyperglycemic crisis, a random glucose >/= 200 mg/dl is diagnostic for diabetes. In the absence of unequivocal hyperglycemia, results should be confirmed by repeat testing. The classification and Diagnosis of Diabetes Diabetes Care 2021; 46: S19-S40. Current interpretive data was last revised 2022. Calcium 8.7 8.5 - 10.3 mg/dL [facility] Bilirubin, total 0.7 0.1 - 1.2 mg/dL [facility] Protein, pl 6.9 6.5 - 8.5 g/dL [facility] Albumin 3.8 3.5 - 5.0 g/dL [facility] Alk phos 61 40 - 130 Units/L [facility] ALT 12 7 - 45 Units/L [facility] AST 21 10 - 45 Units/L [facility] Comment:Hemolyzed; result ma y be falsely elevated Blood 03/07/2025 8:47 PM CDT 03/07/2025 9:11 PM CDT Mari Wiseman NP LAB BLOOD ORDERABLES Fin al Result [facility] [place] [address] * EEG (03/07/2025 5:20 PM CDT) Anatomical Region Laterality Modality EEG Narrative 03/07/2025 5:20 PM CDT Extended EEG Report Patient Name: Emma Lanza [facility] Medical Record Number (MRN): [id number] [facility] Record: [id number] Date of (): 2000 EEG Date: 03/07/2025 Ordering Provider: Mari Wiseman NP CC: Melody Saucedo Start Time: 03:14:53 End Time: 04:16:25 Introduction: Ms. Lanza is a 25 y.o. female with a history of type 1 diabetes complicated by DKA, seizures, anxiety, and depression. Patient is currently admitted to the NNICU for seizures in the setting of acute hypoxic hypercarbic respiratory failure and DKA. EEG was performed to evaluate for seizures. This is a 32 channel EEG recording acquired on a [employer] EEG-1200 acquisition system. Scalp electrodes were placed according to the international 10-20 System. The analog EEG was filtered from 1-70 Hz and digitally sampled at 200 Hz. The record was then reformatted for review in bipolar and referential montages. EEG Description: There was no well-developed posterior rhythm. The background consisted of bilateral, symmetric, diffuse mixed theta and delta range activity with superimposed 20 Hz beta activity. The record showed variability. Artifact including eye movements, blinks, muscle artifact was present. Hyperventilation was not performed. Photic strobe stimulation elicited no abnormalities. There were no focal, lateralized or epileptiform abnormalities. Interpretation: The Extended EEG was abnormal due to moderate generalized slowing. Generalized slowing indicates diffuse cerebral dysfunction as seen in metabolic, toxic, or diffuse or multifocal structural abnormalities. The noted beta range activity is typically seen in the setting of medications such as benzodiazepines. By signing this report, the attending Electroencephalographer certifies that he/she personally reviewed the electrodiagnostics study and has edited this report to fully conform with his/her intent. Signing Attending: Mahin Zazueta MD PhD us Mari Wiseman NP NEUROLOGY ORDERABLES Fin al Result * POCT glucose (03/07/2025 4:47 PM CDT) Glucose, POC 111 70 - 199 mg/dL Blood 03/07/2025 4:47 PM CDT 03/07/2025 4:47 PM CDT Quique Pantoja MD LAB POCT ORDERABLES - DEVICE Fin al Result Performing Organization Address City/State/[facility] Co de Phone Number [facility] [place] [address] * POCT glucose (03/07/2025 3:59 PM CDT) Glucose, POC 101 70 - 199 mg/dL Blood 03/07/2025 3:59 PM CDT 03/07/2025 3:59 PM CDT Quique Pantoja MD LAB POCT ORDERABLES - DEVICE Fin al Result Performing Organization Address [facility] Co de Phone Number [facility] [place] [address] * POCT glucose (03/07/2025 2:55 PM CDT) Glucose, POC 107 70 - 199 mg/dL Blood 03/07/2025 2:55 PM CDT 03/07/2025 2:55 PM CDT Quique Pantoja MD LAB POCT ORDERABLES - DEVICE Fin al Result Performing Organization Address [facility] Co de Phone Number [facility] [place] [address] * POCT glucose (03/07/2025 2:09 PM CDT) Glucose, POC 113 70 - 199 mg/dL Blood 03/07/2025 2:09 PM CDT 03/07/2025 2:09 PM CDT Quique Pantoja MD LAB POCT ORDERABLES - DEVICE Fin al Result Performing Organization Address [facility] Co de Phone Number [facility] [place] [address] * POCT glucose (03/07/2025 12:59 PM CDT) Glucose, POC 115 70 - 199 mg/dL Blood 03/07/2025 12:5 9 PM CDT 03/07/2025 12:59 PM CDT Quique Pantoja MD LAB POCT ORDERABLES - DEVICE Fin al Result Performing Organization Address [facility] de Phone Number [facility] [address] * eGFR (03/07/2025 12:04 PM CDT) [facility] eGFR >90 >=60 mL/min/1. 73 m2 Comment: [...] interpretive data was last reviewed 2021. Blood 03/07/2025 12:0 4 PM CDT 03/07/2025 12:23 PM CDT Mari Wiseman NP LAB BLOOD ORDERABLES Fin al Result Performing Organization Address [facility] Co de Phone Number [facility] [address] * Phosphorus (03/07/2025 12:04 PM CDT) Pathologist [facility] Phosphorus, pl 2.4 2.3 - 4.5 mg/dL Blood 03/07/2025 12:0 4 PM CDT 03/07/2025 12:23 PM CDT Mari Wiseman CENTRAL SUPPLY TECHNICIAN LAB BLOOD ORDERABLES Fin al Result Performing Organization Address City/[facility] de Phone Number [facility] [place] [address] * Magnesium (03/07/2025 12:04 PM CDT) Magnesium 2.1 1.4 - 2.5 mg/dL Blood 03/07/2025 12:0 4 PM CDT 03/07/2025 12:23 PM CDT Mari Wiseman CENTRAL SUPPLY TECHNICIAN LAB BLOOD ORDERABLES Fin al Result Performing Organization Address [facility] de Phone Number [facility] [place] [address] * Lipid panel (03/07/2025 12:04 PM CDT) Cholesterol 100 30 - 199 mg/dL Comment: Interpretive Data Ages < or = [...] Data was last revised on 2018. Triglycerides 78 <=149 mg/dL [facility] Comment: Interpretive Data Ages < or = [...] Data was last revised on 2018. HDL 54 >=40 mg/dL [facility] Comment: Interpretive Data Ages < or = [...] was last revised on 2018. LDL, calculated 30 <=129 mg/dL [facility] Comment: Interpretive Data Ages < or = 19 years Acceptable: <110 mg/dL Borderline high: 110-129 mg/dL High: >or= 130 mg/dL Ages > or = 20 years Optimal: <100 mg/dL Near optimal: 100-129 mg/dL Borderline high: 130-159 mg/dL High: >160 mg/dL Calculated using the Alden LDL-C estimating equation. This equation was implemented on 2024. Prior to this date LDL-C was estimated using the Friedewald equation. Literature References: 1. Expert Panel on Integrated Guidelines for Cardiovascular Health and Risk Reduction in Children and Adolescents. Pediatrics 2011;128:S213 2. NCEP Expert Panel. Circulation 2004;110:227 3. Alden Baum al. JUAN Cardiol. 2020 December 07;5(5):540-548. doi: 10.1001/jamacardio.2020.0013 Current Interpretive Data was last revised on 2024. Non-HDL Cholesterol 46 mg/dL [facility] Comment: Interpretive Data Ages < or = [...] last revised on 2018. Chol/HDL ratio 2 [facility] Blood 03/07/2025 12:0 4 PM CDT 03/07/2025 12:23 PM CDT Narrative [facility] - 03/07/2025 4:02 PM CDT reflex us Quique Pantoja MD LAB BLOOD ORDERABLES Final Resul t [facility] [place] [address] * (ABNORMAL) Basic metabolic panel (03/07/2025 12:04 PM CDT) Sodium 141 135 - 145 mmol/L Potassium, pl 3.8 3.3 - 4.9 mmol/L [facility] Comment:Hemolyzed; Potassium value may be falsely elevated by as much as 0.3-0.5 mmol/L. Suggest redraw and reanalysis. Chloride 112(H) 97 - 110 mmol/L [facility] CO2 20(L) 22 - 32 mmol/L [facility] Anion gap 9 2 - 15 mmol/L [facility] BUN 10 6 - 25 mg/dL [facility] Creatinine 0.49(L) 0.60 - 1.10 mg/dL [facility] Glucose 127 70 - 199 mg/dL [facility] Comment: Interpretive Data Fasting glucose >/= 126 mg/dl is diagnostic for diabetes. Fasting is defined as no caloric intake for at least 8 hours. Fasting glucose between 100 mg/dl to 125 mg/dl is diagnostic of prediabetes. In a patient with classic symptoms of hyperglycemia or hyperglycemic crisis, a random glucose >/= 200 mg/dl is diagnostic for diabetes. In the absence of unequivocal hyperglycemia, results should be confirmed by repeat testing. The classification and Diagnosis of Diabetes Diabetes Care 202; 46: S19-S40. Current interpretive data was last revised 2022. Calcium 7.9(L) 8.5 - 10.3 mg/dL [facility] Blood 03/07/2025 12:0 4 PM CDT 03/07/2025 12:23 PM CDT us Mari Wiseman CENTRAL SUPPLY TECHNICIAN LAB BLOOD ORDERABLES Fin al Result Performing Organization Address City/[facility] Co de Phone Number [facility] [place] [address] * POCT glucose (03/07/2025 11:58 AM CDT) Glucose, POC 125 70 - 199 mg/dL Blood 03/07/2025 11:5 8 AM CDT 03/07/2025 11:58 AM CDT us Quique Pantoja MD LAB POCT ORDERABLES - DEVICE Fin al Result Performing Organization Address [facility] de Phone Number [facility] [place] [address] * POCT glucose (03/07/2025 11:02 AM CDT) Glucose, POC 119 70 - 199 mg/dL Blood 03/07/2025 11:0 2 AM CDT 03/07/2025 11:02 AM CDT Quique Pantoja MD LAB POCT ORDERABLES - DEVICE Fin al Result Performing Organization Address [facility] de Phone Number [facility] [place] [address] * POCT glucose (03/07/2025 9:59 AM CDT) Glucose, POC 145 70 - 199 mg/dL Blood 03/07/2025 9:59 AM CDT 03/07/2025 9:59 AM CDT us Quique Pantoja MD LAB POCT ORDERABLES - DEVICE Fin al Result Performing Organization Address City/[facility] Co de Phone Number [facility] [place] [address] * POCT glucose (03/07/2025 8:56 AM CDT) Glucose, POC 172 70 - 199 mg/dL Blood 03/07/2025 8:56 AM CDT 03/07/2025 8:56 AM CDT Quique Pantoja MD LAB POCT ORDERABLES - DEVICE Fin al Result Performing Organization Address [facility] de Phone Number [facility] [place] [address] * eGFR (03/07/2025 8:06 AM CDT) eGFR >90 >=60 mL/min/1. 73 m2 Comment: [...] interpretive data was last reviewed 2021. Blood 03/07/2025 8:06 AM CDT 03/07/2025 8:58 AM CDT Mari Wiseman NP LAB BLOOD ORDERABLES Fin al Result Performing Organization Address [facility] Co de Phone Number [facility] [place] [address] * Phosphorus (03/07/2025 8:06 AM CDT) Pathologist [facility] Phosphorus, pl 2.3 2.3 - 4.5 mg/dL Blood 03/07/2025 8:06 AM CDT 03/07/2025 8:12 AM CDT Mari Wiseman NP LAB BLOOD ORDERABLES Fin al Result Performing Organization Address [facility] de Phone Number [facility] [place] [address] * Magnesium (03/07/2025 8:06 AM CDT) [facility] Magnesium 1.8 1.4 - 2.5 mg/dL Blood 03/07/2025 8:06 AM CDT 03/07/2025 8:12 AM CDT Mari Wiseman CENTRAL SUPPLY TECHNICIAN LAB BLOOD ORDERABLES Fin al Result Performing Organization Address [facility] de Phone Number [facility] [place] [address] * (ABNORMAL) Basic metabolic panel (03/07/2025 8:06 AM CDT) Pathologist [facility] Sodium 138 135 - 145 mmol/L Potassium, pl 3.7 3.3 - 4.9 mmol/L [facility] Chloride 109 97 - 110 mmol/L [facility] CO2 20(L) 22 - 32 mmol/L [facility] Anion gap 9 2 - 15 mmol/L [facility] BUN 12 6 - 25 mg/dL [facility] Creatinine 0.48(L) 0.60 - 1.10 mg/dL [facility] Glucose 207(H) 70 - 199 mg/dL [facility] Comment: Interpretive Data Fasting glucose >/= 126 mg/dl is diagnostic for diabetes. Fasting is defined as no caloric intake for at least 8 hours. Fasting glucose between 100 mg/dl to 125 mg/dl is diagnostic of prediabetes. In a patient with classic symptoms of hyperglycemia or hyperglycemic crisis, a random glucose >/= 200 mg/dl is diagnostic for diabetes. In the absence of unequivocal hyperglycemia, results should be confirmed by repeat testing. The classification and Diagnosis of Diabetes Diabetes Care 2021; 46: S19-S40. Current interpretive data was last revised 2022. Calcium 7.9(L) 8.5 - 10.3 mg/dL [facility] Blood 03/07/2025 8:06 AM CDT 03/07/2025 8:12 AM CDT us Mari Wiseman NP LAB BLOOD ORDERABLES Fin al Result Performing Organization Address [facility]/ZIP Co de Phone Number [facility] [place] [address] * POCT glucose (03/07/2025 7:42 AM CDT) Glucose, POC 192 70 - 199 mg/dL Blood 03/07/2025 7:42 AM CDT 03/07/2025 7:42 AM CDT Quique Pantoja MD LAB POCT ORDERABLES - DEVICE Fin al Result Performing Organization Address [facility]/ZIP Co de Phone Number [facility] [place] [address] * (ABNORMAL) POCT glucose (03/07/2025 6:54 AM CDT) Glucose, POC 220(H) 70 - 199 mg/dL Blood 03/07/2025 6:54 AM CDT 03/07/2025 6:54 AM CDT Quique Pantoja MD LAB POCT ORDERABLES - DEVICE Fin al Result Performing Organization Address [facility] Co de Phone Number [facility] [place] [address] * (ABNORMAL) POCT glucose (03/07/2025 5:57 AM CDT) Glucose, POC 226(H) 70 - 199 mg/dL Blood 03/07/2025 5:57 AM CDT 03/07/2025 5:57 AM CDT Quique Pantoja MD LAB POCT ORDERABLES - DEVICE Fin al Result Performing Organization Address [facility] Co de Phone Number [facility] [place] [address] * (ABNORMAL) POCT glucose (03/07/2025 5:13 AM CDT) Glucose, POC 222(H) 70 - 199 mg/dL Blood 03/07/2025 5:13 AM CDT 03/07/2025 5:13 AM CDT Quique Pantoja MD LAB POCT ORDERABLES - DEVICE Fin al Result Performing Organization Address [facility] Co de Phone Number [facility] [place] [address] * eGFR (03/07/2025 4:02 AM CDT) eGFR >90 >=60 mL/min/1. 73 m2 Comment: [...] interpretive data was last reviewed 2021. Blood 03/07/2025 4:02 AM CDT 03/07/2025 4:34 AM CDT Mari Wiseman NP LAB BLOOD ORDERABLES Fin al Result Performing Organization Address [facility] Co de Phone Number [facility] [place] [address] * POCT glucose (03/07/2025 4:02 AM CDT) Glucose, POC 198 70 - 199 mg/dL Blood 03/07/2025 4:02 AM CDT 03/07/2025 4:02 AM CDT Quique Pantoja MD LAB POCT ORDERABLES - DEVICE Fin al Result Performing Organization Address [facility] de Phone Number [facility] [place] [address] * Phosphorus (03/07/2025 4:02 AM CDT) Phosphorus, pl 3.7 2.3 - 4.5 mg/dL Blood 03/07/2025 4:02 AM CDT 03/07/2025 4:34 AM CDT Mari Wiseman NP LAB BLOOD ORDERABLES Fin al Result Performing Organization Address [facility] Co de Phone Number [facility] [place] [address] * Magnesium (03/07/2025 4:02 AM CDT) Pathologist [facility] Magnesium 2.2 1.4 - 2.5 mg/dL Blood 03/07/2025 4:02 AM CDT 03/07/2025 4:34 AM CDT us Mari Wiseman CENTRAL SUPPLY TECHNICIAN LAB BLOOD ORDERABLES Fin al Result [facility] [place] [address] * (ABNORMAL) Basic metabolic panel (03/07/2025 4:02 AM CDT) [facility] Sodium 137 135 - 145 mmol/L Potassium, pl 4.9 3.3 - 4.9 mmol/L [facility] Comment:Hemolyzed; Potassium value may be falsely elevated by as much as 0.6-1.0 mmol/L. Suggest redraw and reanalysis. Chloride 106 97 - 110 mmol/L [facility] CO2 16(L) 22 - 32 mmol/L [facility] Anion gap 15 2 - 15 mmol/L [facility] BUN 13 6 - 25 mg/dL [facility] Creatinine 0.53(L) 0.60 - 1.10 mg/dL [facility] Glucose 228(H) 70 - 199 mg/dL [facility] Comment: Interpretive Data Fasting glucose >/= 126 mg/dl is diagnostic for diabetes. Fasting is defined as no caloric intake for at least 8 hours. Fasting glucose between 100 mg/dl to 125 mg/dl is diagnostic of prediabetes. In a patient with classic symptoms of hyperglycemia or hyperglycemic crisis, a random glucose >/= 200 mg/dl is diagnostic for diabetes. In the absence of unequivocal hyperglycemia, results should be confirmed by repeat testing. The classification and Diagnosis of Diabetes Diabetes Care 202; 46: S19-S40. Current interpretive data was last revised 2022. Calcium 8.4(L) 8.5 - 10.3 mg/dL [facility] Blood 03/07/2025 4:02 AM CDT 03/07/2025 4:34 AM CDT us Mari Wiseman NP LAB BLOOD ORDERABLES Fin al Result Performing Organization Address [facility] Co de Phone Number [facility] [place] [address] * POCT glucose (03/07/2025 2:55 AM CDT) Glucose, POC 186 70 - 199 mg/dL Blood 03/07/2025 2:55 AM CDT 03/07/2025 2:55 AM CDT Quique Pantoja MD LAB POCT ORDERABLES - DEVICE Fin al Result Performing Organization Address [facility] de Phone Number [facility] [place] [address] * (ABNORMAL) POCT glucose (03/07/2025 2:00 AM CDT) Glucose, POC 203(H) 70 - 199 mg/dL Blood 03/07/2025 2:00 AM CDT 03/07/2025 2:00 AM CDT Quique Pantoja MD LAB POCT ORDERABLES - DEVICE Fin al Result Performing Organization Address [facility] de Phone Number [facility] [place] [address] * eGFR (03/07/2025 1:04 AM CDT) eGFR >90 >=60 mL/min/1. 73 m2 Comment: [...] interpretive data was last reviewed 2021. Blood 03/07/2025 1:04 AM CDT 03/07/2025 1:21 AM CDT Mari Wiseman NP LAB BLOOD ORDERABLES Fin al Result Performing Organization Address City/[facility] Co de Phone Number [facility] [place] [address] * Phosphorus (03/07/2025 1:04 AM CDT) Phosphorus, pl 2.6 2.3 - 4.5 mg/dL Blood 03/07/2025 1:04 AM CDT 03/07/2025 1:21 AM CDT Mari Wiseman NP LAB BLOOD ORDERABLES Fin al Result Performing Organization Address [facility] de Phone Number [facility] [place] [address] * Magnesium (03/07/2025 1:04 AM CDT) Magnesium 1.9 1.4 - 2.5 mg/dL Blood 03/07/2025 1:04 AM CDT 03/07/2025 1:21 AM CDT Mari Wiseman NP LAB BLOOD ORDERABLES Fin al Result Performing Organization Address [facility] Co de Phone Number [facility] [place] [address] * (ABNORMAL) Basic metabolic panel (03/07/2025 1:04 AM CDT) Sodium 140 135 - 145 mmol/L Potassium, pl 3.7 3.3 - 4.9 mmol/L [facility] Chloride 110 97 - 110 mmol/L [facility] CO2 15(L) 22 - 32 mmol/L [facility] Anion gap 15 2 - 15 mmol/L [facility] BUN 15 6 - 25 mg/dL [facility] Creatinine 0.51(L) 0.60 - 1.10 mg/dL [facility] Glucose 222(H) 70 - 199 mg/dL [facility] Comment: Interpretive Data Fasting glucose >/= 126 mg/dl is diagnostic for diabetes. Fasting is defined as no caloric intake for at least 8 hours. Fasting glucose between 100 mg/dl to 125 mg/dl is diagnostic of prediabetes. In a patient with classic symptoms of hyperglycemia or hyperglycemic crisis, a random glucose >/= 200 mg/dl is diagnostic for diabetes. In the absence of unequivocal hyperglycemia, results should be confirmed by repeat testing. The classification and Diagnosis of Diabetes Diabetes Care 2021; 46: S19-S40. Current interpretive data was last revised 2022. Calcium 8.1(L) 8.5 - 10.3 mg/dL [facility] Blood 03/07/2025 1:04 AM CDT 03/07/2025 1:21 AM CDT Mari Wsieman CENTRAL SUPPLY TECHNICIAN LAB BLOOD ORDERABLES Fin al Result [facility] [place] [address] * POCT glucose (03/07/2025 12:57 AM CDT) Glucose, POC 196 70 - 199 mg/dL Blood 03/07/2025 12:5 7 AM CDT 03/07/2025 12:57 AM CDT us Quique Pantoja MD LAB POCT ORDERABLES - DEVICE Fin al Result Performing Organization Address [facility] Co de Phone Number [facility] [place] [address] * (ABNORMAL) POCT glucose (03/06/2025 11:50 PM CDT) [facility] Glucose, POC 292(H) 70 - 199 mg/dL Blood 03/06/2025 11:5 0 PM CDT 03/06/2025 11:50 PM CDT Quique Pantoja MD LAB POCT ORDERABLES - DEVICE Fin al Result Performing Organization Address [facility] Co de Phone Number [facility] [place] [address] * Check Sample (03/06/2025 11:46 PM CDT) [facility] ABO Rh O Negative [facility] HC[facility] OTHER 03/06/2025 11:4 6 PM CDT 03/07/2025 1:59 AM CDT Quique Pantoja MD LAB BLOOD ORDERABLES Final Resul t Performing Organization Address [facility] de Phone Number [facility] [place] [address] [facility] * Respiratory pathogen panel Nasopharyngeal (03/06/2025 11:46 PM CDT) [facility] Influenza A RNA Not Detected Not Detected Influenza B RNA Not Detected Not Detected [facility] RSV RNA Not Detected Not Detected [facility] COVID-19 RNA Not Detected Not Detected [facility] Coronavirus 229E RNA Not Detected Not Detected [facility] Coronavirus HKU1 RNA Not Detected Not Detected [facility] Coronavirus NL63 RNA Not Detected Not Detected [facility] Coronavirus OC43 RNA Not Detected Not Detected [facility] Adenovirus DNA Not Detected Not Detected [facility] Metapneumovirus RNA Not Detected Not Detected [facility] Rhinovirus/Enterov irus RNA Not Detected Not Detected [facility] Parainfluenza 1 RNA Not Detected Not Detected [facility] Parainfluenza 2 RNA Not Detected Not Detected [facility] Parainfluenza 3 RNA Not Detected Not Detected [facility] Parainfluenza 4 RNA Not Detected Not Detected [facility] B. pertussis DNA Not Detected Not Detected [facility] B. parapertussis DNA Not Detected Not Detected [facility] C. pneumoniae DNA Not Detected Not Detected [facility] M. pneumoniae DNA Not Detected Not Detected [facility] Nasopharyngeal 03/06/2025 11 :46 PM CDT 03/07/2025 3:01 AM CDT Narrative [facility] - 03/07/2025 3:58 AM CDT Is the Patient experiencing symptoms consistent with COVID?->No Surveillance testing for transplant patient?->No Interpretive Data The [employer] FilmArray Respiratory Panel (RP2.1) assay is a multiplexed real-time PCR based nucleic acid test capable of simultaneous qualitative detection and identification of multiple respiratory viral and bacterial nucleic acids, including SARS Coronavirus 2 (the causative agent of COVID-19). The following bacteria, viruses and virus subtypes can be identified using the FilmArray RP2.1 assay: Bordetella pertussis, Bordetella parapertussis, Chlamydia pneumoniae, Mycoplasma pneumoniae, Adenovirus, SARS Coronavirus 2, seasonal coronaviruses (Coronavirus HKU1, Coronavirus NL63, Coronavirus 229E, and Coronavirus OC43), Influenza A, Influenza A subtype H1, Influenza A subtype H3, Influenza A subtype 2009 H1, Influenza B, Metapneumovirus, Parainfluenza 1, Parainfluenza 2, Parainfluenza 3, Parainfluenza 4, RSV, Rhinovirus/Enterovirus. Due to the genetic similarity between human Rhinovirus and Enterovirus, the FilmArray RP2.1 assay cannot reliably differentiate them. Coronavirus OC43 may cross-react with some isolates of Coronavirus HKU1. A dual positive result may be due to cross-reactivity or may indicate a co- infection. The detection and identification of specific viral and bacterial nucleic acids from individuals exhibiting signs and symptoms of a respiratory infection aids in the diagnosis of respiratory infection if used in conjunction with other clinical and epidemiological information. The results of this test should not be used as the sole basis for diagnosis, treatment, or other management decisions. Negative results in the setting of a respiratory illness may be due to infection with pathogens that are not detected by this test. Positive results do not rule out infection/co-infection with other organisms. The agent(s) detected by the FilmArray RP2.1 may not be the definite cause of disease. Additional testing (lab, imaging, etc.) may be necessary when evaluating a patient with possible respiratory tract infection. The FilmArray RP2.1 assay has FDA clearance for testing of CENTRAL SUPPLY TECHNICIAN swabs. The performance of additional specimen types has been assessed by the performing laboratory. The performance characteristics of this assay have been determined by [facility]. Current interpretive data was last revised on 22. Mari Wiseman CENTRAL SUPPLY TECHNICIAN LAB MICROBIOLOGY - [facility] AL ORDERABLES Final Result [facility] Department [place] [address] * (ABNORMAL) Fentanyl Confirmation, Urine (03/06/2025 11:39 PM CDT) Fentanyl Conf, Ur Confirmed Positive(A) Cutoff 0.3ng/mL Acetylfentanyl Conf, Ur Does Not Confirm Cutoff 1 ng/mL [facility] Acrylfentanyl Conf, Ur Does Not Confirm Cutoff 1 ng/mL [facility] Furanylfentanyl Conf, Ur Does Not Confirm Cutoff 1 ng/mL [facility] Fentanyl Metabolite (Norfentanyl) Conf, Ur Does Not Confirm CutOff 5 ng/mL [facility] Xylazine MS Does Not Confirm Cutoff 1 ng/mL [facility] Comment: Interpretive Data This test detects the presence or absence of drug compounds using LC Tandem mass spectrometry and is not intended to assess compliance with prescribed medications. While this test is highly specific, false positive and false negative results may occur in very rare circumstances. Contact the laboratory for consultation, if needed. Performance characteristics were determined by the [facility] in a manner consistent with CLIA requirement and has not been cleared or approved by the U.S. Food and Drug Administration. Current interpretive data was last revised 2020. Urine 03/06/2025 11:3 9 PM CDT 03/07/2025 1:45 AM CDT us Quique Pantoja MD LAB URINE ORDERABLES Final Resul t [facility] Department [place] [address] * (ABNORMAL) Drugs of Abuse Screen, Urine with Reflex Confirmation (03/06/2025 11:39 PM CDT) Amphetamine, ur Not Detected CutOff 500ng/mL Comment: Interpretive Data - Amphetamines: Samples containing greater than 500 ng/mL d-methamphetamine or other cross-reacting amphetamine compounds are reported as positive. Amphetamine immunoassays are subject to significant false positive rates due to cross-reactivity of non-amphetamine drugs. Confirmatory testing required for definitive results. Current Interpretive Data was last reviewed 2023. Barbiturates, ur Not Detected CutOff 200ng/mL [facility] Comment: Interpretive Data - Barbiturates: Samples containing greater than 200 ng/mL secobarbital or other cross-reacting barbiturate compounds are reported as positive. False positive and false negative results are possible. Confirmatory testing required for definitive results. Current Interpretive Data was last reviewed 2023. Benzodiazepines, ur Screen Positive, presumptive (A) CutOff 100ng/mL [facility] Comment: Interpretive Data - Benzodiazepines: Samples containing greater than 100 ng/mL nordiazepam or other cross-reacting compounds are reported as positive. False positive and false negative results are possible. Confirmatory testing required for definitive results. Current Interpretive Data was last reviewed 2023. Cannabinoids, ur Screen Positive, presumptive (A) CutOff 50 ng/mL [facility] Comment: Interpretive Data - Cannabinoids: Samples containing greater than 50 ng/mL delta-9 THC -COOH or other cross- reacting compounds are reported as positive. False positive and false negative results are possible. Confirmatory testing required for definitive results. Current Interpretive Data was last reviewed 2023. Cocaine, ur Not Detected CutOff 150ng/mL [facility] Comment: Interpretive Data - Cocaine: Samples containing greater than 150 ng/mL benzoylecgonine or other cross- reacting compounds are reported as positive. False positive and false negative results are possible. Confirmatory testing required for definitive results. Current Interpretive Data was last reviewed 2023. Fentanyl, Ur Screen Positive, presumptive (A) CutOff 5 ng/mL [facility] Comment: Interpretive Data - Fentanyl: Samples containing greater than 5 ng/mL norfentanyl, fentanyl, or other cross-reacting fentanyl compounds are reported as positive. False positive and false negative results are possible. Confirmatory testing required for definitive results. Current Interpretive Data was last reviewed 2023. Methadone, ur Not Detected CutOff 300ng/mL [facility] Comment: Interpretive Data - Methadone: Samples containing greater than 300 ng/mL d,l-methadone or other cross-reacting compounds are reported as positive. False positive and false negative results are possible. Confirmatory testing required for definitive results. Current Interpretive Data was last reviewed 2023. Opiates, ur Not Detected CutOff 300ng/mL [facility] Comment: Interpretive Data - Opiates: Samples containing greater than 300 ng/mL morphine or other cross-reacting compounds are reported as positive. False positive and false negative results are possible. Confirmatory testing required for definitive results. Current Interpretive Data was last reviewed 2023. Oxycodone, ur Not Detected CutOff 100ng/mL [facility] Comment: Interpretive Data - Oxycodone: Samples containing greater than 100 ng/mL oxycodone or other cross-reacting compounds are reported as positive. False positive and false negative results are possible. Confirmatory testing required for definitive results. Current Interpretive Data was last reviewed 2023. Phencyclidine, ur Not Detected CutOff 25 ng/mL [facility] Comment: Interpretive Data - Phencyclidine: Samples containing greater than 25 ng/mL phencyclidine or other cross-reacting compounds are reported as positive. False positive and false negative results are possible. Confirmatory testing required for definitive results. Current Interpretive Data was last reviewed 2023. Urine Creatinine 28 mg/dL [facility] Comment: Interpretive Data Urine Creatinine: < 10 mg/dL is extremely dilute = or > 10 but < 20 mg/dL is dilute = or > 20 mg/dL is normal Current Interpretive Data was last revised on 2017. Urine 03/06/2025 11:3 9 PM CDT 03/07/2025 1:35 AM CDT Narrative [facility] - 03/07/2025 2:15 AM CDT Drug of Abuse screening is performed by immunoassay for medical purposes only. This is not to be used for Pain Management purposes. If Detected, confirmation testing will be performed for Amphetamines, Cocaine, Fentanyl, Methadone, Opiates, Oxycodone or Phencyclidine. Quique Pantoja MD LAB URINE ORDERABLES Final Resul t Performing Organization Address [facility] Co de Phone Number [facility] [place] [address] * (ABNORMAL) POCT glucose (03/06/2025 11:17 PM CDT) Glucose, POC 267(H) 70 - 199 mg/dL Blood 03/06/2025 11:1 7 PM CDT 03/06/2025 11:17 PM CDT Quique Pantoja MD LAB POCT ORDERABLES - DEVICE Fin al Result Performing Organization Address [facility] de Phone Number [facility] [place] [address] * XR chest 1 view (Portable) (03/06/2025 11:15 PM CDT) Anatomical Region Laterality Modality Body, Chest N/A Digital Radiogra phy 03/07/2025 10:4 9 AM CDT Impressions 03/07/2025 5:58 PM CDT The current study is compared with the prior radiograph dated 03/06/2025. An endotracheal tube is approximately 2 centimeters above the kee. Gastric tube courses below the level of the hemidiaphragm. No pulmonary consolidation, no pleural effusion, no pneumothorax. Normal cardiomediastinal silhouette. Dictated by: Lisa Bauer M.D. The radiology attending physician has personally reviewed this study, and had reviewed and/or edited this written report and agrees with it. Electronically signed by: Fletcher Mcgrath M.D. Narrative 03/07/2025 5:58 PM CDT EXAMINATION: 1 view chest radiograph Procedure Note Fletcher Mcgrath MD PhD - 03/07/2025 EXAMINATION: 1 view chest radiograph IMPRESSION: The current study is compared with the prior radiograph dated 03/06/2025. An endotracheal tube is approximately 2 centimeters above the kee. Gastric tube courses below the level of the hemidiaphragm. No pulmonary consolidation, no pleural effusion, no pneumothorax. Normal cardiomediastinal silhouette. Dictated by: Lisa Bauer M.D. The radiology attending physician has personally reviewed this study, and had reviewed and/or edited this written report and agrees with it. Electronically signed by: Fletcher Mcgrath M.D. Mari Wiseman CENTRAL SUPPLY TECHNICIAN IMG XR PROCEDURES Final Result * XR Abdomen 1 View AP (03/06/2025 11:15 PM CDT) Anatomical Region Laterality Modality Body, Abdomen N/A Digital Radiogra phy 03/07/2025 8:58 AM CDT Impressions 03/07/2025 9:05 AM CDT Gastric tube tip in the antrum and side-port in the body of the stomach. Dictated by: Fabienne Higginbotham M.D. The radiology attending physician has personally reviewed this study, and had reviewed and/or edited this written report and agrees with it. Electronically signed by: Loretta Hawley M.D. Narrative 03/07/2025 9:05 AM CDT EXAMINATION: Abdomen, one view. HISTORY: Check tube placement. COMPARISON: None Procedure Note Loretta Hawley MD - 03/07/2025 EXAMINATION: Abdomen, one view. HISTORY: Check tube placement. COMPARISON: None IMPRESSION: Gastric tube tip in the antrum and side-port in the body of the stomach. Dictated by: Fabienne Neftaly, M.D. The radiology attending physician has personally reviewed this study, and had reviewed and/or edited this written report and agrees with it. Electronically signed by: Loretta Hawley M.D. Mari Wiseman NP IMG XR PROCEDURES Final Result * Troponin I high-sensitivity series (baseline, 2hr, 4hr, 6hr) (03/06/2025 10:45 PM CDT) Pathologist [facility] Trop I hs <4 <=17 ng/L Comment: Interpretive Data For further hscTnI resources including the diagnostic algorithm and an aid in interpretation, copy and paste this link: [email or web address].[email or web address]/[email or web address] Current Interpretive Data last revised 2020. Blood 03/06/2025 10:4 5 PM CDT 03/06/2025 11:14 PM CDT Mari Wiseman NP LAB BLOOD ORDERABLES Fin al Result Performing Organization Address [facility]/ZIP Co de Phone Number [facility] [place] [address] * Lactate (03/06/2025 10:45 PM CDT) [facility] Lactate 1.0 0.7 - 2.0 mmol/L Blood 03/06/2025 10:4 5 PM CDT 03/06/2025 11:55 PM CDT Mari Wiseman NP LAB BLOOD ORDERABLES Fin al Result [facility] [place] [address] * eGFR (03/06/2025 10:45 PM CDT) [facility] eGFR >90 >=60 mL/min/1. 73 m2 Comment: [...] interpretive data was last reviewed 2021. Blood 03/06/2025 10:4 5 PM CDT 03/06/2025 11:14 PM CDT Mari Wiseman NP LAB BLOOD ORDERABLES Fin al Result Performing Organization Address City/[facility]/ZIP Co de Phone Number [facility] [place] [address] * (ABNORMAL) Beta-hydroxybutyrate (03/06/2025 10:45 PM CDT) Beta-Hydroxybut yrate 4.2(H) 0.0 - 0.5 mmol/L Blood 03/06/2025 10:4 5 PM CDT 03/06/2025 10:57 PM CDT Mari Wiseman NP LAB BLOOD ORDERABLES Fin al Result [facility] [place] [address] * (ABNORMAL) aPTT (03/06/2025 10:45 PM CDT) aPTT 22(L) 28 - 38 sec Comment: Interpretive Data Heparin therapeutic range: 66.0 - 100.0 seconds. Range based on correlation with therapeutic heparin activity range of 0.3 - 0.7 Units/mL. Current interpretive data was last revised on 2023. Blood 03/06/2025 10:4 5 PM CDT 03/06/2025 11:55 PM CDT Mari Wiseman NP LAB BLOOD ORDERABLES Fin al Result Performing Organization Address [facility] [place] [address] * Protime-INR (03/06/2025 10:45 PM CDT) Pathologist [facility] PT 11.0 9.7 - 13.0 sec INR 1.02 0.90 - 1.20 [facility] Comment: Interpretive data Oral anticoagulant therapeutic ranges: Venous thromboembolism prophylaxis or treatment: 2.0-3.0 CARDIOLOGY Standard range: 2.0-3.0 High-intensity range: 2.5-3.5 Refer to indication-specific guidelines for appropriate target ranges for prosthetic heart valve replacement. Current interpretive data was last revised on 2019. Blood 03/06/2025 10:4 5 PM CDT 03/06/2025 11:55 PM CDT Mari Wiseman NP LAB BLOOD ORDERABLES Fin al Result Performing Organization Address [facility] [place] [address] * (ABNORMAL) CBC without differential (03/06/2025 10:45 PM CDT) WBC 16.07(H) 3.80 - 9.90 K/cumm Hgb 13.4 11.9 - 15.5 g/dL [facility] Hct 39.2 35.6 - 45.5 % [facility] Plt 192 150 - 400 K/cumm [facility] MPV 11.5 9.1 - 12.3 fL [facility] RBC 4.61 3.90 - 5.20 M/cumm [facility] MCV 85.0 81.3 - 96.4 fL [facility] Comment:No apparent cause fo r delta. This result has been called to Safia Guevara RN by [email or web address] on 03/07/2025 00:31:06. MCH 29.1 27.1 - 33.3 pg [facility] MCHC 34.2 32.3 - 35.7 g/dL [facility] RDW CV 12.9 11.1 - 14.9 % [facility] RDW SD 39.8 35.7 - 48.1 fL [facility] NRBC abs 0.00 0.00 - 0.01 K/cumm [facility] Blood 03/06/2025 10:4 5 PM CDT 03/06/2025 11:14 PM CDT Mari Wiseman NP LAB BLOOD ORDERABLES Elfego jonah Result - Final Performing Organization Address City/[facility]/ZIP Co de Phone Number [facility] [place] [address] * Type and screen (03/06/2025 10:45 PM CDT) ABO Rh O Negative Angelia, indirect Negative [facility] Blood 03/06/2025 10:4 5 PM CDT 03/06/2025 11:04 PM CDT Narrative [facility] - 03/06/2025 11:52 PM CDT Has the patient had Daratumumab or Isatuximab in the past 6 months?->Unknown Mari Wiseman NP LAB BLOOD BANK TEST ORDE RABLES Final Result [facility] [place] [address] * Triglycerides (03/06/2025 10:45 PM CDT) Triglycerides 76 <=149 mg/dL Comment: Interpretive Data Ages < or = [...] Interpretive Data was last revised on 2018. Blood 03/06/2025 10:4 5 PM CDT 03/06/2025 11:14 PM CDT Quique Pantoja MD LAB BLOOD ORDERABLES Final Resul t Performing Organization Address City/[facility]/ZIP Co de Phone Number [facility] [place] [address] * Phosphorus (03/06/2025 10:45 PM CDT) Phosphorus, pl 2.3 2.3 - 4.5 mg/dL Blood 03/06/2025 10:4 5 PM CDT 03/06/2025 10:58 PM CDT Mari Wiseman NP LAB BLOOD ORDERABLES Fin al Result [facility] [place] [address] * Magnesium (03/06/2025 10:45 PM CDT) Magnesium 1.8 1.4 - 2.5 mg/dL Blood 03/06/2025 10:4 5 PM CDT 03/06/2025 10:58 PM CDT Mari Wiseman NP LAB BLOOD ORDERABLES Fin al Result Performing Organization Address [facility] Co de Phone Number [facility] [place] [address] * (ABNORMAL) Hemoglobin A1c (03/06/2025 10:45 PM CDT) Hgb A1C 10.6(H) 4.0 - 5.6 % Estimated Average Glucose 258 mg/dL [facility] Comment: The ADA recommends reporting an estimated Average Glucose (eAG) with all Hemoglobin A1c results using the equation derived from a study of 507 normal and diabetic adults. Minority populations were underrepresented and children were not included. (Diabetes Care 2020; 43(S1): S66-S76). The eAG is not equivalent to a fasting glucose. Blood 03/06/2025 10:4 5 PM CDT 03/06/2025 11:15 PM CDT Quique Pantoja MD LAB BLOOD ORDERABLES Final Resul t Performing Organization Address [facility] Co de Phone Number [facility] [place] [address] * (ABNORMAL) Blood gas, arterial (03/06/2025 10:45 PM CDT) pH, Art 7.31(L) 7.35 - 7.45 PCO2, Arterial 25(L) 35 - 45 mmHg [facility] PO2, Arterial 156(H) 83 - 108 mmHg [facility] HCO3 Art (Calculated) 13(L) 20 - 30 mmol/L [facility] BE, art -12 mmol/L [facility] Comment: Interpretive Data No Reference Range Established Current Interpretive Data was last revised on 2017 O2 Sat Art (Measured) 99(H) 90 - 95 % [facility] Blood 03/06/2025 10:4 5 PM CDT 03/06/2025 10:56 PM CDT Mari Anneliese Wiseman [employer] TECHNICIAN LAB BLOOD ORDERABLES Fin al Result [facility] [place] [address] * (ABNORMAL) Comprehensive metabolic panel (03/06/2025 10:45 PM CDT) Sodium 138 135 - 145 mmol/L Potassium, pl 4.2 3.3 - 4.9 mmol/L [facility] Chloride 107 97 - 110 mmol/L [facility] CO2 14(L) 22 - 32 mmol/L [facility] Anion gap 17(H) 2 - 15 mmol/L [facility] BUN 14 6 - 25 mg/dL [facility] Creatinine 0.47(L) 0.60 - 1.10 mg/dL [facility] Glucose 309(H) 70 - 199 mg/dL [facility] Comment: Interpretive Data Fasting glucose >/= 126 mg/dl is diagnostic for diabetes. Fasting is defined as no caloric intake for at least 8 hours. Fasting glucose between 100 mg/dl to 125 mg/dl is diagnostic of prediabetes. In a patient with classic symptoms of hyperglycemia or hyperglycemic crisis, a random glucose >/= 200 mg/dl is diagnostic for diabetes. In the absence of unequivocal hyperglycemia, results should be confirmed by repeat testing. The classification and Diagnosis of Diabetes Diabetes Care 202; 46: S19-S40. Current interpretive data was last revised 2022. Calcium 7.9(L) 8.5 - 10.3 mg/dL [facility] Bilirubin, total 0.7 0.1 - 1.2 mg/dL [facility] Protein, pl 6.8 6.5 - 8.5 g/dL [facility] Albumin 3.9 3.5 - 5.0 g/dL [facility] Alk phos 67 40 - 130 Units/L [facility] ALT 9 7 - 45 Units/L [facility] AST 11 10 - 45 Units/L [facility] Blood 03/06/2025 10:4 5 PM CDT 03/06/2025 10:58 PM CDT Mari Wiseman NP LAB BLOOD ORDERABLES Fin al Result Performing Organization Address [facility] Co de Phone Number [facility] [place] [address] * (ABNORMAL) POCT glucose (03/06/2025 10:36 PM CDT) Glucose, POC 285(H) 70 - 199 mg/dL Blood 03/06/2025 10:3 6 PM CDT 03/06/2025 10:36 PM CDT Quique Pantoja MD LAB POCT ORDERABLES - DEVICE Fin al Result Performing Organization Address [facility] Co de Phone Number KARL [facility] [place] [address] * (ABNORMAL) POCT glucose (03/06/2025 9:19 PM CDT) Glucose, POC 267(H) 70 - 199 mg/dL Blood 03/06/2025 9:19 PM CDT 03/06/2025 9:19 PM CDT King Moreno MD LAB POCT ORDERABLES - DEVICE Final Result Performing Organization Address City/[facility] Co de Phone Number K[facility]L [facility] ([address] Department [place] [address] * XR Chest 1 Vw Portable (03/06/2025 7:51 PM CDT) Anatomical Region Laterality Modality Body, Chest N/A Computed Radiogr aphy 03/06/2025 7:53 PM CDT Narrative 03/06/2025 7:54 PM CDT EXAM DESCRIPTION: XR CHEST 1 VIEW REASON FOR STUDY: Shortness of breath history diabetes type 1, previous history of DKA, history of seizures on Keppra 500 mg b.i.d.. The patient has been brought from home by EMS. She was noted by the EMS, the patient went into grand mal seizure, the patient was given Valium 5 mg, and underwent the ambulance, had another grand mal seizure, received 5 more. She arrived to the emergency room with no obvious seizure-like activity, but she was unresponsive, with the eyeball sides of the left. TECHNIQUE: Single radiographic view(s) of the chest. COMPARISON: Prior exam 03/06/2025 at 4:49 p.m., 07/31/2024 FINDINGS: This film 03/06/2025 at 7:42 p.m. Tip of the endotracheal tube is 2.8 cm above the kee. Enteric tube extends below the hemidiaphragm and into the stomach below the plane of the film. Normal cardiomediastinal silhouette and pulmonary vascularity. No infiltrate or effusion. No acute osseous findings. IMPRESSION: 1. Tip of the endotracheal tube is 2.8 cm above the kee. 2. Enteric tube extends below the hemidiaphragm and into the stomach below the plane of the film. 3. No acute findings or infiltrate. THIS IS AN ELECTRONICALLY VERIFIED FINAL REPORT 03/06/2025 7:54 PM - Electronically signed by Burt Rubalcava M.D. MJ: MARSHA Report ID: [id number] Reading Location: [id number] Procedure Note Burt Rubalcava MD - 03/06/2025 EXAM DESCRIPTION: XR CHEST 1 VIEW REASON FOR STUDY: Shortness of breath history diabetes type 1, previous history of DKA, history of seizures on Keppra 500 mg b.i.d.. The patient has been brought from home by EMS. Shewas noted by the EMS, the patient went into grand mal seizure, the patient was given Valium 5 mg, and underwent the ambulance, had another grand mal seizure, received 5 more. She arrived to the emergency room with noobvious seizure-like activity, but she was unresponsive, with the eyeball sides ofthe left. TECHNIQUE: Single radiographic view(s) of the chest. COMPARISON: Prior exam 03/06/2025 at 4:49 p.m., 07/31/2024 FINDINGS: This film 03/06/2025 at 7:42 p.m. Tip of the endotracheal tube is 2.8 cm above the kee. Enteric tube extends below the hemidiaphragm and into the stomach belowthe plane of the film. Normal cardiomediastinal silhouette and pulmonary vascularity. Noinfiltrate or effusion. No acute osseous findings. IMPRESSION: 1. Tip of the endotracheal tube is 2.8 cm above the kee. 2. Enteric tube extends below the hemidiaphragm and into the stomachbelow the plane of the film. 3. No acute findings or infiltrate. THIS IS AN ELECTRONICALLY VERIFIED FINAL REPORT 03/06/2025 7:54 PM - Electronically signed by Burt Rubalcava M.D. MJ: MARSHA Report ID: [id number] Reading Location: [place] [address] us King Moreno MD IMG XR PROCEDURES Final Resu lt * MI CRITICAL CARE ILL/INJURED PATIENT INIT 30-74 MIN (03/06/2025 7:36 PM CDT) Narrative King Moreno MD - 03/06/2025 7:36 PM CDT King Moreno MD 03/07/2025 10:10 PM Critical Care Performed by: King Moreno MD Authorized by: King Moreno MD Critical care provider statement: As reflected in the history, physical exam, orders, notes, and/or MDM, I was personally present while the patient was critically ill and provided critical care services for 60 minutes, excluding time involved in separately billable procedures. Critical care was necessary to treat or prevent imminent or life-threatening deterioration of the following condition(s): threatened airway us King Moreno MD IN CLINIC/BEDSIDE ORDERABLES Final Result * MI CRITICAL CARE ILL/INJURED PATIENT INIT 30-74 MIN (03/06/2025 7:35 PM CDT) King Gonzalez MD - 03/06/2025 7:35 PM CDT King Moreno MD 03/06/2025 7:36 PM Critical Care Performed by: King Moreno MD Authorized by: King Moreno MD Critical care provider statement: As reflected in the history, physical exam, orders, notes, and/or MDM, I was personally present while the patient was critically ill and provided critical care services for 60 minutes, excluding time involved in separately billable procedures. Critical care was necessary to treat or prevent imminent or life-threatening deterioration of the following condition(s): seizure Critical care was time spent by me providing the following: frequent neurologic exams and initiation of anti-epileptic therapy I ordered and reviewed test results and/or imaging studies. I spent time discussing the management of this critically ill patient with consultants and the medical staff. I spent time documenting in the medical record. I admitted this patient to an Intensive Care unit (ICU) and discussed management with the admitting team. us King Moreno MD IN CLINIC/BEDSIDE ORDERABLES Final Result * ED INTUBATION (03/06/2025 7:33 PM CDT) Narrative King Moreno MD - 03/06/2025 7:33 PM CDT King Moreno MD 03/06/2025 7:34 PM Intubation Date/Time: 03/06/2025 7:33 PM Performed by: King Moreno MD Authorized by: King Moreno MD [place] Protocol: Informed consent: Unable to obtain due to emergent status Patient's stated name/ matches armband: Yes and patient unable to verbalize - armband matched to name and within medical record Consent form signed, dated, timed; matches correct patient, intended procedure and site: No consent form due to emergent status Supplies, devices and special equipment are available: yes Site/side marked: yes Pre-procedure details: Mallampati score: II - soft palate, uvula, fauces visible Paralytics: Rocuronium Procedure details: Preoxygenation: Bag valve mask CPR in progress: no Intubation method: Oral Oral intubation technique: Video-assisted Laryngoscope blade: Mac 3 Tube size (mm): 7.5 Tube type: Cuffed Number of attempts: 1 Ventilation between attempts: no Cricoid pressure: no Tube visualized through cords: yes Placement assessment: ETT to lip: 25 Tube secured with: ETT montoya Placement verification: chest rise and equal breath sounds Post-procedure details: Patient tolerance of procedure: Tolerated well, no immediate complications King Moreno MD IN CLINIC/BEDSIDE ORDERABLES Final Result * Sepsis Lactate w/ Reflex (03/06/2025 7:23 PM CDT) Sepsis Lactate 1.0 0.7 - 2.0 mmol/L Blood 03/06/2025 7:23 PM CDT 03/06/2025 7:27 PM CDT King Moreno MD LAB BLOOD ORDERABLES Final R esult [facility] ([place]) [address] [facility] Department [place] [address] * Blood culture Blood Blood (03/06/2025 7:23 PM CDT) Report Final Report: No growth Comment:Testing performed by : [facility], [address] [facility], [place]., [address] Blood (Blood) 03/06/2025 7:2 3 PM CDT 03/06/2025 10:07 PM CDT Narrative [facility] ([place]) - 03/11/2025 7:00 AM CDT Collection->Peripheral 1. Blood cultures are incubated for 4 days on a continuously monitored blood culture system. The first report of a negative culture is issued within 24 hours of receipt of the specimen in the laboratory. 2. Positive culture results are reported as soon as they are detected. 3. The most important factor for detection of microbes in the setting of bloodstream infection is the volume of blood submitted for culture. Failure to collect an optimal blood volume can result in false negative blood cultures. 4. For pediatric patients, the recommended blood volume to collect follows a weight based strategy. See the electronic test catalog for collection instructions. 5. For positive blood cultures, a rapid molecular test may be performed for organism identification using the rubia ePlex blood culture identification panel for gram positive (BCID-GP) and gram negative (BCID-GN) organisms. This nucleic acid amplification test detects microbial DNA in positive blood culture broth. This assay has been cleared by the [place] Food and Drug Administration and its performance characteristics have been verified by the [facility]. For questions about this culture, contact the Microbiology Laboratory at [phone]. Interpretive data was last revised on 24. King Moreno MD LAB MICROBIOLOGY - GENERAL O RDERABLES Final Result [facility] ([place]) [address] [facility] Department [place] [address] * Blood culture Blood Blood (03/06/2025 7:22 PM CDT) Report Final Report: No growth Comment:Testing performed by : [facility], [address] [facility] [place]., [address] Blood (Blood) 03/06/2025 7:2 2 PM CDT 03/06/2025 10:07 PM CDT Narrative [facility] ([place]) - 03/11/2025 7:00 AM CDT Collection->Peripheral 1. Blood cultures are incubated for 4 days on a continuously monitored blood culture system. The first report of a negative culture is issued within 24 hours of receipt of the specimen in the laboratory. 2. Positive culture results are reported as soon as they are detected. 3. The most important factor for detection of microbes in the setting of bloodstream infection is the volume of blood submitted for culture. Failure to collect an optimal blood volume can result in false negative blood cultures. 4. For pediatric patients, the recommended blood volume to collect follows a weight based strategy. See the electronic test catalog for collection instructions. 5. For positive blood cultures, a rapid molecular test may be performed for organism identification using the rubia ePlex blood culture identification panel for gram positive (BCID-GP) and gram negative (BCID-GN) organisms. This nucleic acid amplification test detects microbial DNA in positive blood culture broth. This assay has been cleared by the [place] Food and Drug Administration and its performance characteristics have been verified by the [facility]. For questions about this culture, contact the Microbiology Laboratory at [phone]. Interpretive data was last revised on 24. King Moreno MD LAB MICROBIOLOGY - GENERAL O RDERABLES Final Result Performing Organization Address City/[facility]/ZIP Co de Phone Number [place] [address] [place] [address] * (ABNORMAL) Blood gas, arterial (03/06/2025 6:49 PM CDT) pH, Art 7.30(L) 7.35 - 7.45 PCO2, Arterial 36 35 - 45 mmHg [facility] ([place]) PO2, Arterial 178(H) 83 - 108 mmHg [facility] ([place]) HCO3 Art (Calculated) 17(L) 20 - 30 mmol/L [facility] ([place]) BE, art -8 mmol/L [facility] ([place]) Comment: Interpretive Data No Reference Range Established Current Interpretive Data was last revised on 2017 O2 Sat Art (Measured) 100(H) 90 - 95 % [facility] ([place]) Blood 03/06/2025 6:49 PM CDT 03/06/2025 6:53 PM CDT King Moreno MD LAB BLOOD ORDERABLES Final R esult Performing Organization Address City/[facility]/ZIP Co de Phone Number [facility] ([place]) [address] [place] [address] * XR Chest 1 Vw Portable (03/06/2025 4:53 PM CDT) Anatomical Region Laterality Modality Body, Chest N/A Computed Radiogr aphy 03/06/2025 6:12 PM CDT Narrative 03/06/2025 6:15 PM CDT EXAM DESCRIPTION: XR CHEST 1 VIEW REASON FOR STUDY: general weakness Unable to remove necklace due to pt condition Poor historian, pt here for seizures TECHNIQUE: Frontal radiographic view(s) of the chest. COMPARISON: 08/01/2024 FINDINGS: LUNGS: Subtle bibasilar and right upper lung airspace opacities are present which could reflect early developing pneumonia/aspiration pneumonitis in the appropriate clinical setting superimposed on atelectasis. No pleural effusion or pneumothorax. HEART/MEDIASTINUM: Cardiac silhouette normal in size. Mediastinal and hilar contours appear normal. LINES/TUBES: None. BONES: No acute osseous abnormality. There is gastric gaseous distension. IMPRESSION: 1.Subtle bibasilar and right upper lung airspace opacities which could reflect early developing pneumonia/aspiration pneumonitis in the appropriate clinical setting superimposed on atelectasis . Clinical correlation is recommended. THIS IS AN ELECTRONICALLY VERIFIED FINAL REPORT 03/06/2025 6:15 PM - Electronically signed by Mariah Maurice M.D. AT: AT Report ID: [id number] Reading Location: [place] [id number] Procedure Note Mariah Maurice MD - 03/06/2025 EXAM DESCRIPTION: XR CHEST 1 VIEW REASON FOR STUDY: general weakness Unable to remove necklace due to pt condition Poor historian, pt here for seizures TECHNIQUE: Frontal radiographic view(s) of the chest. COMPARISON: 08/01/2024 FINDINGS: LUNGS: Subtle bibasilar and right upper lung airspace opacities arepresent which could reflect early developing pneumonia/aspiration pneumonitis inthe appropriate clinical setting superimposed on atelectasis. No pleural effusion or pneumothorax. HEART/MEDIASTINUM: Cardiac silhouette normal in size. Mediastinal andhilar contours appear normal. LINES/TUBES: None. BONES: No acute osseous abnormality. There is gastric gaseous distension. IMPRESSION: 1.Subtle bibasilar and right upper lung airspace opacities which couldreflect early developing pneumonia/aspiration pneumonitis in the appropriateclinical setting superimposed on atelectasis . Clinical correlation isrecommended. THIS IS AN ELECTRONICALLY VERIFIED FINAL REPORT 03/06/2025 6:15 PM - Electronically signed by Mariah Maurice M.D. AT: AT Report ID: [id number] Reading Location: [id number] King Moreno MD IMG XR PROCEDURES Final Resu lt * Influenza A/B, RSV, and COVID-19 PCR Nasopharyngeal (03/06/2025 4:18 PM CDT) COVID-19 RNA Negative Negative Influenza A RNA Negative Negative [facility]) Influenza B RNA Negative Negative [facility]) RSV RNA Negative Negative [facility] ([place]) Comment: Interpretive data: Testing performed by [facility]. This test is performed using the [employer] Xpert Xpress CoV-2/Flu/RSV plus assay. This is a multiplex, real- time reverse transcriptase PCR assay intended for the qualitative detection of nucleic acid from SARS-CoV-2, influenza A, influenza B, and respiratory syncytial virus. This assay has been cleared by the [place] Food and Drug administration. The performance characteristics have been verified by the [facility]. Results must be considered in the clinical context, and a negative result does not rule out infection. Interpretive Data last revised 2023 Nasopharyngeal 03/06/2025 4: 18 PM CDT 03/06/2025 4:25 PM CDT Narrative [facility] ([place]) - 03/06/2025 5:56 PM CDT Is the Patient experiencing symptoms consistent with COVID?->Unknown King Moreno MD LAB MICROBIOLOGY - GENERAL O RDERABLES Final Result [facility] ([place]) 1 [facility] Department of Laboratories [place], [place] [id number] * (ABNORMAL) Sepsis Lactate w/ Reflex (03/06/2025 4:18 PM CDT) Sepsis Lactate 8.8(C) 0.7 - 2.0 mmol/L Comment:Critical result call ed to and read back by Mazin Hill (ER Charge) on 03/06/2025 16:31:53 CDT_ to Shirlene Estrada. Blood 03/06/2025 4:18 PM CDT 03/06/2025 4:23 PM CDT King Moreno MD LAB BLOOD ORDERABLES Final R esult Performing Organization Address City/[facility]/ZIP Co de Phone Number [facility]L [facility] ([place]) [address] [facility] [email or web address] [address] * eGFR (03/06/2025 4:18 PM CDT) eGFR >90 >=60 mL/min/1. 73 m2 Comment: [...] interpretive data was last reviewed 2021. Blood 03/06/2025 4:18 PM CDT 03/06/2025 4:21 PM CDT King Moreno MD LAB BLOOD ORDERABLES Final R esult [facility] ([place]) [address] [facility] [place] [address] * (ABNORMAL) Differential, auto (03/06/2025 4:18 PM CDT) Neutrophil abs 8.43(H) 1.50 - 6.50 K/cumm Imm gran abs 0.09 0.00 - 0.10 K/cumm [facility] ([place]) Lymphocyte abs 6.37(H) 0.80 - 3.30 K/cumm [facility] ([place]) Monocyte abs 0.63 0.20 - 0.80 K/cumm [facility] ([place]) Eosinophil abs 0.08 0.00 - 0.50 K/cumm [facility]) Basophil abs 0.08 0.00 - 0.10 K/cumm [facility] ([place]) Neutrophil pct 53.8 % [facility] ([place]) Comment: Interpretive Data Percent cell count reference ranges are not reported, since discordance with absolute values may lead to misinterpretation of CBC data. Current Interpretive Data was last revised on 2017. Imm gran pct 0.6 % [facility] ([place]) Comment: Interpretive Data Percent cell count reference ranges are not reported, since discordance with absolute values may lead to misinterpretation of CBC data. Current Interpretive Data was last revised on 2017. Lymphocyte pct 40.6 % [facility]) Comment: Interpretive Data Percent cell count reference ranges are not reported, since discordance with absolute values may lead to misinterpretation of CBC data. Current Interpretive Data was last revised on 2017. Monocyte pct 4.0 % [facility] ([place]) Comment: Interpretive Data Percent cell count reference ranges are not reported, since discordance with absolute values may lead to misinterpretation of CBC data. Current Interpretive Data was last revised on 2017. Eosinophil pct 0.5 % [facility]) Comment: Interpretive Data Percent cell count reference ranges are not reported, since discordance with absolute values may lead to misinterpretation of CBC data. Current Interpretive Data was last revised on 2017. Basophil pct 0.5 % [facility] ([place]) Comment: Interpretive Data Percent cell count reference ranges are not reported, since discordance with absolute values may lead to misinterpretation of CBC data. Current Interpretive Data was last revised on 2017. Blood 03/06/2025 4:18 PM CDT 03/06/2025 4:21 PM CDT King Moreno MD LAB BLOOD ORDERABLES Final R esult [facility] ([place]) 1 [facility] Department [place] [address] * (ABNORMAL) CBC with auto differential (03/06/2025 4:18 PM CDT) Pathologist [facility] WBC 15.68(H) 3.80 - 9.90 K/cumm Hgb 14.9 11.9 - 15.5 g/dL [facility]) Hct 46.4(H) 35.6 - 45.5 % [facility]) Plt 287 150 - 400 K/cumm [facility]) MPV 11.3 9.1 - 12.3 fL [facility]) RBC 5.15 3.90 - 5.20 M/cumm [facility]) MCV 90.1 81.3 - 96.4 fL [facility]) MCH 28.9 27.1 - 33.3 pg [facility] ([place]) MCHC 32.1(L) 32.3 - 35.7 g/dL [facility] ([place]) RDW CV 12.5 11.1 - 14.9 % [facility]) RDW SD 41.5 35.7 - 48.1 fL [facility]) NRBC abs 0.00 0.00 - 0.01 K/cumm [facility]) Morphologic Screen Results confirmed by manual morphology review. [facility]) Blood 03/06/2025 4:18 PM CDT 03/06/2025 4:21 PM CDT King Moreno MD LAB BLOOD ORDERABLES Edited Result - Final [facility] ([place]) 1 [facility] Department [place] [address] * hCG, blood, quantitative (03/06/2025 4:18 PM CDT) Pathologist [facility] hCG, quant <5.0 0.0 - 5.0 IUnits/L [facility] ([place]) Comment: Interpretive Data Male: < 5 IU/L Non- premenopausal Female: <5 IU/L The [employer] hCG Beta Quant assay procedure was used. Results from different manufacturers or methods may not be comparable. Serial testing should be performed using the same method. Interpretive Data was last revised on 2023 Blood 03/06/2025 4:18 PM CDT 03/06/2025 5:27 PM CDT King Moreno MD LAB BLOOD ORDERABLES Final R esult [facility] ([place]) 1 [facility] Department [place] [address] * (ABNORMAL) Blood gas, venous (03/06/2025 4:18 PM CDT) [facility] pH, Venous 6.98(C) 7.32 - 7.43 Comment:Critical result call ed to and read back by Mazin Hill (ED) on 03/06/2025 17:32:48 CDT to [id number]. PCO2, Venous 80(C) 40 - 50 mmHg [facility] ([place]) Comment:Critical result call ed to and read back by Mazin Hill (ED) on 03/06/2025 17:32:48 CDT to [id number]. PO2, Venous 220 mmHg [facility] ([place]) Comment: Interpretive Data No reference range established. Current interpretive data was last revised 2017. HCO3 Venous, Calculated 18(L) 20 - 30 mmol/L [facility] ([place]) BE, venous -16 mmol/L [facility] ([place]) Comment: Interpretive Data No Reference Range Established Current Interpretive Data was last revised on 2017. Blood 03/06/2025 4:18 PM CDT 03/06/2025 5:28 PM CDT King Moreno MD LAB BLOOD ORDERABLES Final R esult [facility] ([place]) [facility] Department [place] [address] * (ABNORMAL) Comprehensive metabolic panel (03/06/2025 4:18 PM CDT) Sodium 140 135 - 145 mmol/L [facility] ([place]) Potassium, pl 3.5 3.3 - 4.9 mmol/L [facility] ([place]) Chloride 103 97 - 110 mmol/L [facility] ([place]) CO2 16(L) 22 - 32 mmol/L [facility] ([place]) Anion gap 21(H) 2 - 15 mmol/L [facility] ([place]) BUN 15 6 - 25 mg/dL [facility] ([place]) Creatinine 0.55(L) 0.60 - 1.10 mg/dL [facility] ([place]) Glucose 321(H) 70 - 199 mg/dL [facility] ([place]) Comment: Interpretive Data Fasting glucose >/= 126 mg/dl is diagnostic for diabetes. Fasting is defined as no caloric intake for at least 8 hours. Fasting glucose between 100 mg/dl to 125 mg/dl is diagnostic of prediabetes. In a patient with classic symptoms of hyperglycemia or hyperglycemic crisis, a random glucose >/= 200 mg/dl is diagnostic for diabetes. In the absence of unequivocal hyperglycemia, results should be confirmed by repeat testing. The classification and Diagnosis of Diabetes Diabetes Care 2021; 46: S19-S40. Current interpretive data was last revised 2022. Calcium 9.1 8.5 - 10.3 mg/dL [facility]) Bilirubin, total 0.5 0.1 - 1.2 mg/dL [facility]) Protein, pl 7.9 6.5 - 8.5 g/dL [facility]) Albumin 4.7 3.5 - 5.0 g/dL [facility]) Alk phos 88 40 - 130 Units/L [facility]) ALT 11 7 - 45 Units/L [facility] AST 16 10 - 45 Units/L [facility]) Blood 03/06/2025 4:18 PM CDT 03/06/2025 4:21 PM CDT Result [facility] King Moreno MD LAB BLOOD ORDERABLES Final R esult [facility] ([place]) [address] [facility] Department [place] [address] * ECG 12 lead (03/06/2025 4:15 PM CDT) 03/06/2025 4:15 PM CDT Narrative [facility] - 03/07/2025 7:40 AM CDT Vent Rate: 143 bpm RR Interval: 418 msec MI Interval: 0 msec QRS Duration: 97 msec QT Interval: 297 msec QTC Interval: 380 msec P-R-T [employer]: [id number] - 12 - 62 degrees IMPRESSION: Probable sinus tachycardia LOW QRS VOLTAGE IN PRECORDIAL LEADS [QRS DEFLECTION < 1.0 mV IN CHEST LEADS] INCOMPLETE RIGHT BUNDLE BRANCH BLOCK [90+ ms QRS DURATION, TERMINAL R IN V1/V2, 40+ ms S IN I/aVL/V4/V5/V6] NONSPECIFIC T-WAVE ABNORMALITY ABNORMAL RHYTHM ECG Compared to prior EKG, heart rate increased Electronically Signed By: Ben Rebolledo MD Result [facility] King Moreno MD ECG ORDERABLES Final Result Performing Organization Address City/[facility]/ZIP Co de Phone Number [facility] [employer] [facility] * Diabetic Eye Exam (10/25/2024) 10/25/2024 Historical Provider HEALTH MAINTENANCE Final Result * Thyroid Function [place] (09/17/2023 1:55 PM GILL NET STRINGER) TSH 1.61 0.30 - 4.20 mcIUnit/mL [facility] ([place]) Blood 09/17/2023 1:55 PM GILL NET STRINGER 09/17/2023 3:55 PM GILL NET STRINGER Dilma Miller NP LAB BLOOD ORDERABLES Final Resu lt Performing Organization Address [facility] Co de Phone Number [facility] ([place]) [address] [place] [address] * Albumin Creatinine Ratio, Urine (09/17/2023 1:55 PM GILL NET STRINGER) Albumin Ur 15.4 mg/L [facility] ([place]) Comment: Interpretive Data No reference range established. Current interpretive data was last revised 2018. Testing performed by: [facility], [address] [place] [address]., [id number] Creatinine Ur 205.1 mg/dL [facility] ([place]) Comment: Interpretive Data No reference range established. Current interpretive data was last revised 2018. Testing performed by: [facility], [address] [place] [address]., [address] Albumin Creatinine Ratio, Ur 8 1 - 29 mg/g [facility] ([place]) Comment:Testing performed by : [facility], [address] [place] [address]., [id number] Urine 09/17/2023 1:55 PM GILL NET STRINGER 09/17/2023 7:38 PM GILL NET STRINGER Dilma Miller NP LAB URINE ORDERABLES Final Resu lt Performing Organization Address [facility] de Phone Number [facility] ([place]) [address] [place] [address] * N. gonorrhoeae/C. trachomatis Amplification Urine (01/23/2021 11:10 AM CDT) C. trachomatis Not detected Not detected [facility] N. gonorrhoe[facility] Not detected Not detected [facility] Comment: Testing performed by the [facility] Laboratory. This assay detects Chlamydia trachomatis [...] MICROBIOLOGY - GENERAL [place] [address] [address] [place] [address] from Last 3 Months or Most Recently Relevant to Health Maintenance Insurance [facility] OPEN ACCESS Advance Directives For more information, please contact: [phone] * Full Code (Latest Code Status on File) Date Activated Date Inactivated Comments 03/06/2025 10:31 PM 03/09/2025 7:08 PM * Full Code Date Activated Date Inactivated Comments 08/01/2024 6:01 AM 08/04/2024 6:29 PM Care Teams Bolt Man Relationship Specialty Start Date End Date Melody Saucedo NP [address] [place] [address] [address] GUIDO B [facility] [address] [place] [address] PCP - General Nurse Practitioner 03/06/25
--- OUTSIDE RECORDS SUMMARY | 2025-03-25 16:50 | XMS_ITS | Encounter Summary ---
Author Organization [facility] Address [address] [place] [address] Care Team Providers Care Conservation Enforcement Officer Name Role Phone Heather Mathias MD Primary Care Provider [phone] Heather Mathias MD Primary Care Provider [phone] Reason for Visit * Reason Comments Refill Request Encounter Details Date Type Department Care Team (Late st Contact Info) Description 10/10/2018 Refill [facility] Pediatrics - Diabetes [address] [address] [address], [employer] [address] [place] [id number] Refill Request Social History Tobacco Use Types Packs/Day Years Used Date Smoking Tobacco: Never Smokeless Tobacco: Never Comments:Passive smoke expos ure Alcohol Use Standard Drinks/Week Comments Not Asked 0 (1 standard drink = 0.6 oz pur e alcohol) Comments No Sex and Gender Information Value Date Recorded Sex Assigned at Not on file Legal Sex Female 11:39 AM BUSINESS EDITOR Gender Identity Not on file Sexual Orientation Not on file documented as of this encounter Miscellaneous Notes * Telephone Encounter - Krys Murillo RN - 10/14/2018 3:19 PM BUSINESS EDITOR Received refill request for test strips from [facility]. Noted that strips recently sent to [facility]. Called and left vm with father to clarify which rx they would like to receive strips from. NESS EDITOR documented in this encounter Plan of Treatment Not on file documented as of this encounter Visit Diagnoses Diagnosis Type 1 diabetes mellitus without complication (HCC)- Primary Type I (juvenile type) diabetes mellitus without mention of complication, not stated as uncontrolled documented in this encounter Additional Health Concerns Infection Onset Date Last Indicated Resolved Time COVID-19 Under Investigation 07/21/2020 07/21/2020 07/21/2020 12:45 AM BUSINESS EDITOR documented as of this encounter Care Teams Conservation Enforcement Officer Relationship Specialty Start Date End Date Heather Mathias MD [address] [place] [address] PCP - General 11/27/10 03/18/21 Heather Mathias MD [address] [place], [place] [phone] PCP - General 03/20/21 documented as of this encounter
--- OUTSIDE RECORDS SUMMARY | 2025-03-25 16:50 | XMS_ITS | Encounter Summary ---
Author Organization [facility] Address [address] [place] [address] Care Team Providers Care Operational Communication Chief Name Role Phone Heather Mathias MD Primary Care Provider [phone] Heather Mathias MD Primary Care Provider [phone] Encounter Details Date Type Department Care Team (Late st Contact Info) Description 05/18/2019 Telephone [facility] Pediatrics - Diabetes [address] [address] [address], [place] ATTORNEY-CAREER RESOURCE SPECIALIST [address] [place] [phone] Social History Tobacco Use Types Packs/Day Years Used Date Smoking Tobacco: Never Smokeless Tobacco: Never Comments:Passive smoke expos ure Alcohol Use Standard Drinks/Week Comments Not Asked 0 (1 standard drink = 0.6 oz pur e alcohol) Comments No Sex and Gender Information Value Date Recorded Sex Assigned at Not on file Legal Sex Female 11:39 AM DIRECTOR OF LABOR AND DELIVERY Gender Identity Not on file Sexual Orientation Not on file documented as of this encounter Miscellaneous Notes * Telephone Encounter - Shalonda Schaefer RN - 05/18/2019 4:20 PM CDT Diabetes Sick Call Patient: Emma Guidry Date: 05/18/2019 Current Blood Glucose: 515, Current [...] Under Investigation 07/21/2020 07/21/2020 07/21/2020 12:45 AM DIRECTOR OF LABOR AND DELIVERY documented as of this encounter Care Teams Operational Communication Chief Relationship Specialty Start Date End Date Heather Mathias MD [address] [place] [phone] PCP - General 11/27/10 03/18/21 Heather Mathias MD [address] [place] [phone] PCP - General 03/20/21 documented as of this encounter
--- NOTE | 2025-03-25 18:36 | ED.GENADULT ---
HPI - General Adult General Chief complaint: Ear Stated complaint: Right Eye Problem/Ear Pain Source: patient Mode of arrival: ambulatory Limitations: no limitations History of Present Illness HPI narrative: Patient presents for evaluation of swelling to the right lower eyelid. Symptom onset 4 days ago. She has been applying warm compresses without much improvement. She has associated pruritus and pain. In last 24 hours she has developed some right ear pain. Denies any hearing loss, tinnitus or drainage from the right ear. She is type 1 diabetic but removed her insulin pump yesterday. She administered 40 units of Lantus and is planning on putting her pump back on after 24 hours since Lantus administration. She has not been checking her blood sugar. Related Data Home Medications ?Medication ?Instructions ?Recorded ?Confirmed ?Last Taken ?Type aripiprazole 10 mg tablet 10 mg PO DAILY 04/12/22 07/13/22 Unknown History buspirone 15 mg tablet 15 mg PO DAILY 04/12/22 07/13/22 Unknown History insulin lispro 100 unit/mL 60 sliding scale dose continuous 04/12/22 07/13/22 Unknown History subcutaneous solution (Humalog subcutaneous infusion DAILY U-100 Insulin) insulin pump cart,cont inf,BT 04/12/22 04/12/22 Unknown History (Omnipod Dash Pods (Gen 4) subcutaneous cartridge) medroxyprogesterone 150 mg/mL 150 mg IM [id number] 04/12/22 07/13/22 Unknown History intramuscular syringe oxybutynin chloride 10 mg mg PO 07/21/22 Unknown History tablet,extended release 24 hr aripiprazole 15 mg tablet mg 03/25/25 Unknown History ivabradine 5 mg tablet mg 03/25/25 Unknown History levetiracetam 500 mg tablet mg PO 03/25/25 Unknown History norgestimate 0.25 mg-ethinyl tablet 03/25/25 Unknown History estradiol 0.035 mg tablet (Rox) ondansetron 8 mg disintegrating mg 03/25/25 Unknown History tablet Allergies Allergy/AdvReac Type Severity Reaction Status Date / Time amoxicillin Allergy Intermediate Hives / Verified 03/25/25 17:01 Red Face Penicillins Allergy Unknown Verified 03/25/25 17:01 Review of Systems Review of Systems: CONSTITUTIONAL: Denies fever, chills, or sweats. EYES: Reports swelling of right lower eyelid with associated discomfort. Denies visual changes, redness, or discharge. ENT: Reports right-sided otalgia. Denies rhinorrhea, congestion, or sore throat CARDIOVASCULAR: Denies chest pain, palpitations, or edema. RESPIRATORY: Denies cough or dyspnea. GASTROINTESTINAL: Denies abdominal pain, nausea, vomiting, or diarrhea. GENITOURINARY: Denies dysuria or hematuria. SKIN: Reports itching to the right lower eyelid. MUSCULOSKELETAL: Denies back pain, joint pain, or myalgia. NEUROLOGIC: Denies headache, numbness, dizziness, or weakness. PSYCHIATRIC: Denies anxiety or depression. [facility] Past Medical History Medical History Diabetes type I Anxiety and depression Surgical History Surgical History No pertinent past surgical history Family History Family History Mother Family history non-contributory Social History Social History Gender identity (if verbalized by the patient): Female Spiritual care concerns: No Exam Narrative: GENERAL: Well-appearing, well-nourished, and in no acute distress. HEAD: Normocephalic, atraumatic. EYES: PERRLA and EOMI. ENT: Nares clear, no rhinorrhea or epistaxis. Mucous membranes moist. Oropharynx without tonsillar hypertrophy exudate or other lesions. Bilateral TMs pearly jeffrey nonbulging NECK: Supple. No adenopathy or masses. No carotid bruits or JVD CHEST: Clear to auscultation. No respiratory distress. No wheezes rales or rhonchi HEART: Regular rate and rhythm. No murmur heard. Normal peripheral pulses. ABDOMEN: Soft, nontender, nondistended, normal active bowel sounds. EXTREMITIES: Normal range of motion. No edema. SKIN: There is a small raised area surrounding 1 of the hair follicles of the right lower eyelid. There is erythema and swelling present to the right lower eyelid. NEURO: No focal deficits. Alert and oriented x3. PSYCH: Normal mood and affect. Course Course Emergency Course: This is a 25-year-old type 1 diabetic who presented today with reports of right eyelid swelling and redness. She also has right-sided ear pain. This appears to be a hordeolum so will discharge with erythromycin as she is already doing warm compresses. Will also cover with oral antibiotics in the event that this is an early periorbital cellulitis. We discussed proceeding with cephalosporin despite amoxicillin allergy as her allergic response is rash. Her blood sugar here was about 400. I recommended she go to the hospital for further evaluation. She declined. She indicates she removed her insulin pump and is planning on replacing it when she gets home. She states that she knows how to manage her diabetes well. She should follow-up with her primary care provider go to the ER for worsening symptoms. Patient in agreement with plan of care. Level of Care: Express Care Visit Vital Signs Vital signs: Vital Signs Temperature 36.6 C 03/25/25 16:50 Pulse Rate 84 03/25/25 16:50 Respiratory Rate 16 03/25/25 16:50 Blood Pressure 109/62 03/25/25 16:50 Pulse Oximetry 99 03/25/25 16:50 Oxygen Delivery Room Air 03/25/25 16:50 Temperature 36.6 C 03/25/25 16:50 Pulse Rate 84 03/25/25 16:50 Respiratory Rate 16 03/25/25 16:50 Blood Pressure 109/62 03/25/25 16:50 Pulse Oximetry 99 03/25/25 16:50 Oxygen Delivery Room Air 03/25/25 16:50 Medical Decision Making Vital Signs Vital Signs: Vital Signs Temperature 36.6 C 03/25/25 16:50 Pulse Rate 84 03/25/25 16:50 Respiratory Rate 16 03/25/25 16:50 Blood Pressure 109/62 03/25/25 16:50 Pulse Oximetry 99 03/25/25 16:50 Oxygen Delivery Room Air 03/25/25 16:50 Temperature 36.6 C 03/25/25 16:50 Pulse Rate 84 03/25/25 16:50 Respiratory Rate 16 03/25/25 16:50 Blood Pressure 109/62 03/25/25 16:50 Pulse Oximetry 99 03/25/25 16:50 Oxygen Delivery Room Air 03/25/25 16:50 Lab Data Labs: Lab Results 03/25/25 Range/Units 17:59 POC Capillary Glucose 437 H (65-105) mg/dl Discharge Plan Discharge Clinical Impression: Hordeolum Acute otalgia Qualifiers: Laterality: right Qualified Code(s): H92.01 - Otalgia, right ear Patient Disposition: Left Against Medical Advice Condition: Stable Patient Language: Serbian Prescriptions: New cephalexin 500 mg capsule 500 mg PO Q6H Qty: 40 0RF sulfamethoxazole-trimethoprim [Bactrim DS] 800-160 mg tablet 1 tablet PO Q12H Qty: 20 0RF erythromycin 5 mg/gram (0.5 %) ointment 1 applic EACH EYE Q4H Qty: 3.5 0RF No Action oxybutynin chloride 10 mg tablet extended release 24hr PO albuterol sulfate 90 mcg/actuation HFA aerosol inhaler 2 puff inhalation QID PRN (Reason: shortness of breath or wheezing) Qty: 6.7 0RF norgestimate-ethinyl estradiol [Rox] 0.25-0.035 mg tablet levetiracetam 500 mg tablet PO ondansetron 8 mg tablet,disintegrating aripiprazole 15 mg tablet ivabradine 5 mg tablet buspirone 15 mg tablet 15 mg PO DAILY aripiprazole 10 mg tablet 10 mg PO DAILY medroxyprogesterone 150 mg/mL syringe 150 mg IM [id number] insulin lispro [Humalog U-100 Insulin] 100 unit/mL solution 60 sliding scale dose continuous subcutaneous infusion DAILY (DME) Omnipod Dash Pods (Gen 4) Cartridge SUBCUT Rx Instructions: Q 3 DAYS Follow-up/Referrals: Melody Saucedo RN [Primary Care Provider] - Time of Disposition: 18:23
== END 2025-03-25 18:32 | disposition left against medical advice (07) ==
PROVIDERS: Emergency Provider Nurse Practitioner
DX: H00.012 Hordeolum externum right lower eyelid (principal); H92.01 Otalgia, right ear; E10.9 Type 1 diabetes mellitus without complications; Z79.4 Long term (current) use of insulin; F41.9 Anxiety disorder, unspecified; F32.A Depression, unspecified
CPT/HCPCS: 82948; 99213; G0463